=== PATIENT | male | born 2000 | race Caucasian/White ===

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

== ENCOUNTER 2019-06-24 19:22 | Emergency (ER) | payer OTHER ==
--- OUTSIDE RECORDS SUMMARY | 2019-06-24 19:26 | XMS REPORT ---
:2000 [facility] Address [address] [place] [address] Dr. Betancourt [address] [place] [id number] Care Team Providers Name Role Phone Unavailable Unavailable Unavailable Problems This patient has no known problems. Allergies, Adverse Reactions, Alerts This patient has no known allergies or adverse reactions. Medications This patient has no known medications.
[2019-06-24] MEDS ORDERED: NA CHLORIDE 0.9% 1,000 ML ONE (20:38)
[2019-06-24] MEDS ORDERED: BISACODYL 10 MG RECTAL SUPP ONE (20:38)
[2019-06-24] MEDS ORDERED: LACTULOSE 20 GM/30 ML UCUP ONE (20:39)
[2019-06-24 21:20] LABS: Protime INR 1.2
[2019-06-24 21:26] LABS: Absolute Lymphocytes (CBC) 1.9 K/uL (0.7-4.9); Basophils % 0.8 % (0-1.3); Hematocrit 40.4 % (39.6-49.0); Lymphocytes % 26.2 % (15.3-44.8); MPV 10.3 fL (7.6-11.3); RBC Red Blood Cell Count 4.34 M/uL (4.33-5.43)
[2019-06-24 22:03] LABS: ALT/SGPT 18 U/L (12-78); AST/SGOT 13 U/L (15-37); Albumin 4.3 g/dL (3.4-5.0); Alkaline Phosphatase 66 U/L (45-117); BUN Blood Urea Nitrogen 14 mg/dL (7-18); Bicarbonate 33 mmol/L (21-32); Bilirubin Direct 0.2 mg/dL (0-0.2); Bilirubin Total 0.4 mg/dL (0.2-1.0); Glucose Level 95 mg/dL (74-106); Potassium 3.7 mmol/L (3.5-5.1); Protein, Total 7.5 g/dL (6.4-8.2); Sodium Level 143 mmol/L (136-145)
--- NOTE | 2019-06-24 23:41 | ER ---
Nurse's Notes [facility] Name: Jeff Dawkins Age: 18 yrs Sex: Male : 2000 Arrival Date: 06/24/2019 Time: 19:23 Bed 24 Private MD: Diagnosis: Contusion of left hand;Constipation;Ascites;Pleural effusion in conditions classified elsewhere;Cardiomegaly;Pericardial effusion (noninflammatory) Presentation: 06/24 19:25 Presenting complaint: Mother states: Constipation, normal BM about 4 weeks ago; No lp1 relief with enemas, stool softeners, lactulose; Began on Seroquel about 2 months ago and patient has become agitated, aggressive, biting; Bruising noted to knuckle of left hand. Transition of care: patient was not received from another setting of care. Onset of symptoms was June 24, 2019. Risk Assessment: Do you want to hurt yourself or someone else? Patient reports no desire to harm self or others. Initial Sepsis Screen: Does the patient meet any 2 criteria? No. Patient's initial sepsis screen is negative. Does the patient have a suspected source of infection? No. Patient's initial sepsis screen is negative. Care prior to arrival: None. 19:25 Method Of Arrival: Wheelchair lp1 19:25 Acuity: JALEEL 3 lp1 Historical: - Allergies: 19:28 Ativan; lp1 19:28 Tegretol; lp1 19:28 Lorazepam; lp1 19:28 Carbamazepine; lp1 - Home Meds: 19:28 Trileptal 900 mg Oral 2 times per day [Active]; Singulair 10 mg Oral tab once daily lp1 [Active]; Flovent Inhl [Active]; Zyrtec 10 mg Oral tab once daily [Active]; Seroquel Oral [Active]; - PMHx: 19:28 Bonchial Pulmonary dysplasia; Cerebral Palsy; Heart Valve problem; Non-verbal; lp1 scoliosis; Seizures; - Immunization history:: Adult Immunizations up to date. - Social history:: Smoking status: Patient/guardian denies using tobacco. - Ebola Screening: : No symptoms or risks identified at this time. - Family history:: not pertinent. Screenin:45 Abuse screen: Denies threats or abuse. Denies injuries from another. Nutritional ca1 screening: No deficits noted. Tuberculosis screening: No symptoms or risk factors identified. Fall Risk Fall in past 12 months (25 points). Secondary diagnosis (15 points) CP. IV access (20 points). Ambulatory Aid- Crutches/Cane/Walker (15 pts). Gait- Impaired (20 pts.). Total Perez Fall Scale indicates High Risk Score (45 or more points). Fall prevention measures have been instituted. Side Rails Up X 2 Frequent Obs/Assessments Occuring Family Present and informed to notify staff if the need to leave the bedside As available patient and family educated on Fall Prevention Program and Strategies. Assessment: 19:45 General: Appears in no apparent distress. comfortable, Behavior is calm, cooperative. ca1 Pain: Unable to use pain scale. FLACC scale score is 0 out of 10. Neuro: Level of Consciousness is awake, alert. Cardiovascular: Heart tones S1 S2 present Capillary refill < 3 seconds Patient's skin is warm and dry. Respiratory: Airway is patent Respiratory effort is even, unlabored, Respiratory pattern is regular, symmetrical. GI: Abdomen is flat, non-distended, Bowel sounds present X 4 quads. Abd is soft and non tender X 4 quads. Parent/caregiver reports the patient having constipation. : Parent/caregiver report the patient having trouble urinating. Pt has not peed on his pull up in few hours but diaper is full when inspected. EENT: No deficits noted. No signs and/or symptoms were reported regarding the EENT system. Derm: Skin is healthy with good turgor, has skin tears on on both arms. Mother reports they were bite alvares by the pt. Skin is pink, warm \T\ dry. Musculoskeletal: Circulation, motion, and sensation intact. Capillary refill < 3 seconds. 20:32 Reassessment: Patient appears in no apparent distress at this time. No changes from ca1 previously documented assessment. 21:36 Reassessment: Patient appears in no apparent distress at this time. No changes from ca1 previously documented assessment. Mother at bedside. 21:40 Reassessment: Pending CT with Oral Contrast. ca1 22:23 Reassessment: Assumed care of pt. Pt appears to be resting comfortably, family at 5 bedside. Alert/active, equal unlabored resp,. Awaiting CT results and urine collection. 23:19 Reassessment: Pt continues to be alert, calm, mom at bedside, [place] cath applied with sr5 drainage bag, pt tolerated procedure very well. Awaiting CT results and urine collection. Vital Signs: 19:31 BP 118 / 87; Pulse 114; Resp 20; Temp 97.1(A); Pulse Ox 97% on R/A; Weight 68.04 kg (R);lp1 21:36 BP 125 / 74; Pulse 90; Resp 17 S; Pulse Ox 100% on R/A; ca1 23:19 BP 131 / 78; Pulse 91; Resp 18; Temp 97.9; Pulse Ox 98% on R/A; sr5 ED Course: 19:23 Patient arrived in ED. cl3 19:26 Triage completed. lp1 19:26 Arm band placed on. lp1 19:36 Nia Monroy, TEJINDER is Primary Nurse. ca1 19:45 Patient has correct armband on for positive identification. Placed in gown. Bed in low ca1 position. Call light in reach. Side rails up X2. Adult w/ patient. Pulse ox on. NIBP on. Warm blanket given. 19:53 Hilario Schroeder MD is Attending Physician. [facility] 20:30 Oral contrast given. eh 21:02 No provider procedures requiring assistance completed. Initial lab(s) drawn, by id, ca1 sent to lab. Inserted saline lock: 22 gauge in right antecubital area, using aseptic technique. Blood collected. 21:12 Radiology exam delayed due to lab results not completed at this time. (BUN/Creatinine) eh DRINKING ORAL CONTRAST. 21:59 Cleaned of incontinence. jp3 22:11 Hand Left 3 View In Process Unspecified. EDMS 23:01 CT Abd/Pelvis - PO and IV Contrast In Process Unspecified. EDMS 23:42 Urine collected: Mccormack catheter specimen, clear, mile colored, from condom cath. jp3 06/25 00:18 IV discontinued, intact, bleeding controlled, No redness/swelling at site. Pressure sr5 dressing applied. Administered Medications: 06/24 20:30 Drug: Dulcolax Suppository 10 mg Route: OH; ca1 23:46 Follow up: Response: No change in condition sr5 20:35 Drug: Lactulose 30 grams Volume: 45 ml; Route: PO; ca1 23:46 Follow up: Response: No adverse reaction sr5 21:08 Drug: NS 0.9% 1000 ml Route: IV; Rate: 1 bolus; Site: left antecubital; ca1 23:46 Follow up: IV Status: Completed infusion; IV Intake: 1000ml sr5 Intake: 23:46 IV: 1000ml; Total: 1000ml. sr5 Outcome: 23:38 Discharge ordered by . ramona 06/25 00:17 Patient left the ED. sr5 00:17 Discharged to home via wheelchair, with family. sr5 00:17 Condition: good 00:17 Discharge instructions given to family, Instructed on discharge instructions, follow up and referral plans. medication usage, Demonstrated understanding of instructions, follow-up care, medications, Prescriptions given X 2. Signatures: Dispatcher [employer] EDMS Hilario Schroeder MD MD cha Hagler, Rosa Isela Guillen, RN RN lp1 Leonid Rivers RN RN sr5 Sea Ceron jp3 Nia Monroy RN RN ca1 Kenny Pineda cl3
--- NOTE | 2019-06-24 23:42 | EDPHYS ---
Physician Documentation [facility] Name: Jeff Dawkins Age: 18 yrs Sex: Male : 2000 Arrival Date: 06/24/2019 Time: 19:23 Bed 24 Private MD: ED Physician Hilario Schroeder HPI: 06/24 21:53 This 18 yrs old Male presents to ER via Wheelchair with complaints of ramona Constipation, Urinary Problem. 21:53 The patient or guardian reports decreased range of motion, pain. The complaints affect ramona the left hand diffusely. The patient presents with abdominal pain in the upper abdomen, in the lower abdomen, abdominal distention in the upper abdomen, in the lower abdomen. Onset: The symptoms/episode began/occurred 1 week(s) ago. The symptoms do not radiate. Modifying factors: The symptoms are alleviated by nothing, the symptoms are aggravated by nothing. no bm. Historical: - Allergies: 19:28 Ativan; lp1 19:28 Tegretol; lp1 19:28 Lorazepam; lp1 19:28 Carbamazepine; lp1 - Home Meds: 19:28 Trileptal 900 mg Oral 2 times per day [Active]; Singulair 10 mg Oral tab once daily lp1 [Active]; Flovent Inhl [Active]; Zyrtec 10 mg Oral tab once daily [Active]; Seroquel Oral [Active]; - PMHx: 19:28 Bonchial Pulmonary dysplasia; Cerebral Palsy; Heart Valve problem; Non-verbal; lp1 scoliosis; Seizures; - Immunization history:: Adult Immunizations up to date. - Social history:: Smoking status: Patient/guardian denies using tobacco. - Ebola Screening: : No symptoms or risks identified at this time. - Family history:: not pertinent. ROS: 21:53 Constitutional: Negative for fever, chills, and weight loss, Eyes: Negative for injury, ramona pain, redness, and discharge, ENT: Negative for injury, pain, and discharge, Neck: Negative for injury, pain, and swelling, Cardiovascular: Negative for chest pain, palpitations, and edema, Respiratory: Negative for shortness of breath, cough, wheezing, and pleuritic chest pain, Back: Negative for injury and pain, : Negative for injury, bleeding, discharge, and swelling, MS/Extremity: Negative for injury and deformity, Skin: Negative for injury, rash, and discoloration, Neuro: Negative for headache, weakness, numbness, tingling, and seizure, Psych: Negative for depression, anxiety, suicide ideation, homicidal ideation, and hallucinations, Allergy/Immunology: Negative for hives, rash, and allergies, Endocrine: Negative for neck swelling, polydipsia, polyuria, polyphagia, and marked weight changes, Hematologic/Lymphatic: Negative for swollen nodes, abnormal bleeding, and unusual bruising. 21:53 Abdomen/GI: Positive for abdominal pain, constipation. Exam: 21:53 Abdomen/GI: Inspection: abdomen appears normal, Bowel sounds: normal, Palpation: mild ramona abdominal tenderness, in all quadrants. 23:34 Cardiovascular: Rate: normal, Rhythm: regular, Pulses: Pulses are 4+ in bilateral ramona radial, brachial, femoral, popliteal, posterior tibial and and dorsalis pedis arteries.. Heart sounds: murmur, grade 3 over 6, rub, not appreciated, gallop, not appreciated, Edema: is not appreciated, JVD: is not appreciated. 23:35 Constitutional: This is a well developed, well nourished patient who is awake, alert, ramona and in no acute distress. Head/Face: Normocephalic, atraumatic. Eyes: Pupils equal round and reactive to light, extra-ocular motions intact. Lids and lashes normal. Conjunctiva and sclera are non-icteric and not injected. Cornea within normal limits. Periorbital areas with no swelling, redness, or edema. ENT: Nares patent. No nasal discharge, no septal abnormalities noted. Tympanic membranes are normal and external auditory canals are clear. Oropharynx with no redness, swelling, or masses, exudates, or evidence of obstruction, uvula midline. Mucous membranes moist. Neck: Trachea midline, no thyromegaly or masses palpated, and no cervical lymphadenopathy. Supple, full range of motion without nuchal rigidity, or vertebral point tenderness. No Meningismus. Chest/axilla: Normal chest wall appearance and motion. Nontender with no deformity. No lesions are appreciated. Respiratory: Lungs have equal breath sounds bilaterally, clear to auscultation and percussion. No rales, rhonchi or wheezes noted. No increased work of breathing, no retractions or nasal flaring. Abdomen/GI: Soft, non-tender, with normal bowel sounds. No distension or tympany. No guarding or rebound. No evidence of tenderness throughout. Back: No spinal tenderness. No costovertebral tenderness. Full range of motion. Male : Normal genitalia with no discharge or lesions. Skin: Warm, dry with normal turgor. Normal color with no rashes, no lesions, and no evidence of cellulitis. Neuro: Awake and alert, GCS 15, oriented to person, place, time, and situation. Cranial nerves II-XII grossly intact. Motor strength 5/5 in all extremities. Sensory grossly intact. Cerebellar exam normal. Normal gait. Psych: Awake, alert, with orientation to person, place and time. Behavior, mood, and affect are within normal limits. 23:35 Musculoskeletal/extremity: ROM: full active range of motion, full passive range of motion, Circulation is intact in all extremities. Sensation intact. Compartment Syndrome exam of affected extremity: is normal. DVT Exam: no pain, no tenderness, negative Homans' sign noted on exam, no appreciated bluish discoloration, no erythema, no increased warmth, swelling. Vital Signs: 19:31 BP 118 / 87; Pulse 114; Resp 20; Temp 97.1(A); Pulse Ox 97% on R/A; Weight 68.04 kg (R);lp1 21:36 BP 125 / 74; Pulse 90; Resp 17 S; Pulse Ox 100% on R/A; ca1 23:19 BP 131 / 78; Pulse 91; Resp 18; Temp 97.9; Pulse Ox 98% on R/A; sr5 MDM: 19:53 Patient medically screened. [facility] 21:55 Data reviewed: vital signs, nurses notes, lab test result(s), EKG, radiologic studies, [facility] CT scan. 06/24 19:55 Order name: Acetaminophen; Complete Time: 22:32 [facility] 06/24 19:55 Order name: Basic Metabolic Panel; Complete Time: 22:32 [facility] 06/24 19:55 Order name: CBC with Diff; Complete Time: 21:52 [facility] 06/24 19:55 Order name: ETOH Level; Complete Time: 21:52 [facility] 06/24 19:55 Order name: Hepatic Function; Complete Time: 22:32 [facility] 06/24 19:55 Order name: PT-INR; Complete Time: 21:52 [facility] 06/24 19:55 Order name: Ptt, Activated; Complete Time: 21:52 [facility] 06/24 19:55 Order name: Salicylate; Complete Time: 21:52 [facility] 06/24 19:55 Order name: Urine Drug Screen [facility] 06/24 19:55 Order name: CT Abd/Pelvis - PO and IV Contrast [facility] 06/24 21:58 Order name: Hand Left 3 View EDMS 06/24 19:55 Order name: EKG; Complete Time: 19:55 [facility] 06/24 19:55 Order name: EKG - Nurse/Tech; Complete Time: 21:36 [facility] 06/24 19:55 Order name: IV Saline Lock; Complete Time: 21:07 [facility] 06/24 19:55 Order name: Labs collected and sent; Complete Time: 21:07 [facility] 06/24 19:55 Order name: Urine Dipstick-Ancillary (obtain specimen); Complete Time: 23:46 [facility] Administered Medications: 20:30 Drug: Dulcolax Suppository 10 mg Route: MA; ca1 23:46 Follow up: Response: No change in condition sr5 20:35 Drug: Lactulose 30 grams Volume: 45 ml; Route: PO; ca1 23:46 Follow up: Response: No adverse reaction sr5 21:08 Drug: NS 0.9% 1000 ml Route: IV; Rate: 1 bolus; Site: left antecubital; ca1 23:46 Follow up: IV Status: Completed infusion; IV Intake: 1000ml sr5 Disposition: 06/24/19 23:38 Discharged to Home. Impression: Contusion of left hand, Constipation, Ascites, Pleural effusion in conditions classified elsewhere, Cardiomegaly, Pericardial effusion (noninflammatory). - Condition is Stable. - Discharge Instructions: Ascites, Constipation, Adult, Hand Contusion, Pericardial Effusion, Pleural Effusion, How to Take a Sitz Bath, Constipation, Adult, [id number], Hand Contusion, [id number]. - Prescriptions for Lactulose 10 gram/15 mL Oral Solution - take 30 milliliter by ORAL route once daily; 300 milliliter. Miralax 17 gram/dose Oral - take 1 packet by ORAL route once daily dilute powder in 8 ounces of water or juice; 20 packet. - Medication Reconciliation Form, Thank You Letter, Antibiotic Education, Prescription Opioid Use form. - Follow up: Private Physician; When: 2 - 3 days; Reason: Recheck today's complaints, Continuance of care, Re-evaluation by your physician. - Problem is new. - Symptoms have improved. Signatures: Dispatcher [employer] EDHilario Ross MD MD cha Pena, Laura, RN RN lp1 Resecker, Leonid, RN RN sr5 Nia Monroy RN RN ca1 Corrections: (The following items were deleted from the chart) 23:37 21:53 Constitutional: This is a well developed, well nourished patient who is awake, ramona alert, and in no acute distress. Head/Face: Normocephalic, atraumatic. Eyes: Pupils equal round and reactive to light, extra-ocular motions intact. Lids and lashes normal. Conjunctiva and sclera are non-icteric and not injected. Cornea within normal limits. Periorbital areas with no swelling, redness, or edema. ENT: Nares patent. No nasal discharge, no septal abnormalities noted. Tympanic membranes are normal and external auditory canals are clear. Oropharynx with no redness, swelling, or masses, exudates, or evidence of obstruction, uvula midline. Mucous membranes moist. Neck: Trachea midline, no thyromegaly or masses palpated, and no cervical lymphadenopathy. Supple, full range of motion without nuchal rigidity, or vertebral point tenderness. No Meningismus. Chest/axilla: Normal chest wall appearance and motion. Nontender with no deformity. No lesions are appreciated. Cardiovascular: Regular rate and rhythm with a normal S1 and S2. No gallops, murmurs, or rubs. Normal PMI, no JVD. No pulse deficits. Respiratory: Lungs have equal breath sounds bilaterally, clear to auscultation and percussion. No rales, rhonchi or wheezes noted. No increased work of breathing, no retractions or nasal flaring. Back: No spinal tenderness. No costovertebral tenderness. Full range of motion. Male : Normal genitalia with no discharge or lesions. Skin: Warm, dry with normal turgor. Normal color with no rashes, no lesions, and no evidence of cellulitis. MS/ Extremity: Pulses equal, no cyanosis. Neurovascular intact. Full, normal range of motion. Neuro: Awake and alert, GCS 15, oriented to person, place, time, and situation. Cranial nerves II-XII grossly intact. Motor strength 5/5 in all extremities. Sensory grossly intact. Cerebellar exam normal. Normal gait. Psych: Awake, alert, with orientation to person, place and time. Behavior, mood, and affect are within normal limits. [facility] 06/25 00:17 06/24 23:38 06/24/2019 23:38 Discharged to Home. Impression: Contusion of left hand; sr5 Constipation; Ascites; Pleural effusion in conditions classified elsewhere; Cardiomegaly; Pericardial effusion (noninflammatory). Condition is Stable. Discharge Instructions: Constipation, Adult, How to Take a Sitz Bath, Constipation, Adult, [id number], Hand Contusion, Hand Contusion, [id number]. Prescriptions for Lactulose 10 gram/15 mL Oral Solution - take 30 milliliter by ORAL route once daily; 300 milliliter, Miralax 17 gram/dose Oral - take 1 packet by ORAL route once daily dilute powder in 8 ounces of water or juice; 20 packet. and Forms are Medication Reconciliation Form, Thank You Letter, Antibiotic Education, Prescription Opioid Use. Follow up: Private Physician; When: 2 - 3 days; Reason: Recheck today's complaints, Continuance of care, Re-evaluation by your physician. Problem is new. Symptoms have improved. [facility]
[2019-06-24 23:57] LABS: Barbiturates NEGATIVE (NEGATIVE); Benzodiazepines NEGATIVE (NEGATIVE); Cocaine NEGATIVE (NEGATIVE); METHAMPHETAM NEGATIVE (NEGATIVE); Methadone NEGATIVE (NEGATIVE); Opiates NEGATIVE (NEGATIVE); Phencyclidine NEGATIVE (NEGATIVE); THC Cannibis NEGATIVE (NEGATIVE)
[2019-06-25 00:25] VITALS: BP 131/78; TEMP 97.9; O2SAT 98
--- NOTE | 2019-06-25 08:06 | RAD REPORT ---
EXAM DESCRIPTION: RAD - Hand Left 3 View - 06/24/2019 10:12 pm CLINICAL HISTORY: Trauma, left hand pain COMPARISON: March 2016 FINDINGS: No fracture, dislocation or periosteal reaction noted. No acute joint finding. No foreign body or significant soft tissue abnormality. IMPRESSION: Negative left hand examination.
--- NOTE | 2019-06-25 10:23 | RAD REPORT ---
EXAM DESCRIPTION: CT - Abdomen Pelvis W Contrast - 06/25/2019 3:42 am CLINICAL HISTORY: ABD PAIN COMPARISON: None. TECHNIQUE: CT ABDOMEN PELVIS WITH IV CONTRAST on 06/24/2019 7:55 PM FUR JOINER This exam was performed according to our departmental dose-optimization program, which includes autom ated exposure control, adjustment of the mA and/or kV according to patient size and/or use of iterati ve reconstruction technique. FINDINGS: There are small bilateral pleural effusions. The heart is moderately enlarged with a small pericardial effusion. Abdomen: The liver is normal in appearance. There is no biliary dilatation. Gallbladder is poorly dis tended. There is diffuse mild to moderate ascites. The pancreas and spleen are normal in appearance. Adrenal glands are normal. Left kidney contains a tiny peripheral cyst as well as at least three punc clarke calculi. There is no definite hydronephrosis. Because normal. Abdominal aorta is normal in course and caliber without aneurysm. There is no free air. There is no r etroperitoneal adenopathy. Pelvis: There is large amount of stool throughout the colon. Urinary bladder is unremarkable. There i s moderate free pelvic fluid. Skeleton: There are no acute osseous findings. No suspicious bony lesions. IMPRESSION: Ascites and pleural effusions along with a pericardial effusion. Electronically signed by: Chris Sapp MD 06/24/2019 11:15 PM FUR JOINER Due to temporary technical issues with the PACS/Fluency reporting system, reports are being signed by the in house radiologist as a courtesy to ensure prompt reporting. The interpreting radiologist is f ully responsible for the content of the report.
--- NOTE | 2019-06-25 13:48 | EKG ---
Test Date: 2019-06-24 Test Time: 21:30:49 Social Sciences Chair: OLIVE MEASUREMENT RESULTS: Intervals: Rate: 96 GA: 188 QRSD: 110 QT: 358 QTc: 452 Dexter: P: 51 GA: 188 QRS: 65 T: 14 INTERPRETIVE STATEMENTS: Normal sinus rhythm with sinus arrhythmia Early repolarization Normal ECG Compared to ECG 01/14/2013 10:17:56 Aberrant conduction of supraventricular beat(s) no longer present ST (T wave) deviation no longer present Electronically Signed On 06-25-19 13:46:26 [employer]URING by Sinan Stockton
== END 2019-06-25 00:17 | disposition home or self-care (01) ==
LOC: ER 19:22
DX: K59.00 Constipation, unspecified (principal); R18.8 Other ascites; I31.3 Pericardial effusion (noninflammatory); I51.7 Cardiomegaly; J91.8 Pleural effusion in other conditions classified elsewhere; G40.909 Epilepsy, unspecified, not intractable, without status epilepticus; Z88.8 Allergy status to other drugs, medicaments and biological substances
CPT/HCPCS: 96361; 93005; 85025; 80048; 36415; 80320; 80329 ×2; 85610; 80076; 80307 ×8; 85730; 74177; 73130; 96360; 99284; Q9967; J7030

== ENCOUNTER 2021-11-06 23:32 | Emergency (ER) | payer OTHER ==
--- OUTSIDE RECORDS SUMMARY | 2021-11-06 23:36 | XMS REPORT | Continuity of Care Document ---
:2000 Author Organization [facility] t Address [address] [place] [address] Dr. [address] [place] [address] Care Team Providers Name Role Phone Sabiha GRAY Primary Care Physician Unavailable Sabiha Gray Attending Clinician Unavailable MOHIT CONTI Attending Clinician Unavailable MOHIT CONTI Attending Clinician Unavailable KRAIG BENNETT Attending Clinician Unavailable Mohit Conti MD Attending Clinician KRAIG BENNETT Admitting Clinician Unavailable Payers Payer Name Policy Type Policy Number Effective Date Expiration Date S maryrupert [facility] [id number] 2020 00:00:00 PLUS [facility] [id number] 2021 00:00:00 PLAN Problems Condition Condition Condition Status Onset Resolution Last Treating Co mments Source Name Details Category Date Date Treatment Clinician Date No known No known Disease NPI:1 83 active active [id number] problems problems Allergies, Adverse Reactions, Alerts Allergy Allergy Status Severity Reaction(s) Onset Inactive Treating Comm ents Source Name Type Date Date Clinician LORAZEPA Allergy Active NPI:118 M 2-21 [id number] 00:00: 00 CARBAMAZ Allergy Active NPI:118 EPINE 2-21 [id number] 00:00: 00 Carbamaz Propensi Active Unknown Tegretol N PI:183 epine ty to See comments 03-29 Decrease 13 89743 adverse 00:00: RBC reaction 00 s Lorazepa Propensi Active Unknown hallucina NPI:183 m ty to See comments 03-29 tion 1318 781 adverse 00:00: reaction 00 s CARBAMAZ DRUG Active Unknown-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 I:183 EPINE INGREDI 03-29 [id number] 00:00: 00 LORAZEPA DRUG Active Unknown-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 I:183 M INGREDI 03-29 5600361 00:00: 00 Tegretol Adverse Active Changes NPI:17 4 Reaction blood values 04 56654 Ativan Adverse Active Hallucinatio NPI :174 Reaction ns [id number] NO KNOWN Allergy Active SLEH ALLERGIE S Social History Social Habit Start Date Stop Date Quantity Comments Source Tobacco use and 2020-11-28 2020-11-28 Never used NPI:02222 23552 exposure 00:00:00 00:00:00 Sex [birth year] At [birth year] NPI:[id number] 00:00:00 00:00:00 Smoking Status Start Date Stop Date Source Never smoker Medications Ordered Filled Start Stop Current Ordering Indication Dosage Frequency Signature Comments Components Source Medication Medication Date Date Medication? Clinician (SIG) Name Name docusate Yes 50mg Take 50 mg NPI :183 sodium 50 6-01 by mouth. 42372 81 mg capsule 18:27: 32 ascorbic Yes 500mg Take 500 NPI: 183 acid, 6-01 mg by [id number] vitamin C, 18:27: mouth. 500 mg 32 tablet Multivitami Yes Take by 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 I:183 ns with 6-01 mouth. [id number] Fluoride 18:27: (MULTI-LUIS DANIEL 32 MIN ORAL) Lactobac Yes Take by NPI:1 83 no.41/Bifid 6-01 mouth. 060476 1 obact no.7 18:27: (PROBIOTIC- 32 10 ORAL) Magnesium Yes Take by NPI: 183 Amino Acid 6-01 mouth. 1531308 Chelate 100 18:27: mg Tab 32 docusate Yes 50mg Take 50 mg NPI :183 sodium 50 6-01 by mouth. 58892 81 mg capsule 18:27: 32 ascorbic Yes 500mg Take 500 NPI: 183 acid, 6-01 mg by [id number] vitamin C, 18:27: mouth. 500 mg 32 tablet Multivitami Yes Take by 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 I:183 ns with 6- mouth. [id number] Fluoride 18:27: (MULTI-LUIS DANIEL 32 MIN ORAL) Lactobac Yes Take by NPI:1 83 no.41/Bifid 6- mouth. 505621 1 obact no.7 18:27: (PROBIOTIC- 32 10 ORAL) Magnesium Yes Take by NPI: 183 Amino Acid 6- mouth. [id number] Chelate 100 18:27: mg Tab 32 FLUoxetine Yes NPI:183 40 mg 5-06 [id number] capsule 00:00: 00 FLUoxetine Yes NPI:183 40 mg 5-06 [id number] capsule 00:00: 00 risperiDONE Yes NPI:18 3 0.5 mg 4-29 [id number] tablet 00:00: 00 risperiDONE Yes NPI:18 3 0.5 mg 4-29 [id number] tablet 00:00: 00 calcium Yes 500mg Take 500 NPI:1 83 gluconate 1-08 mg by 9590515 45 mg (500 19:51: mouth. mg) Tab 02 tablet Melatonin 5 Yes 5mg Take 5 mg N PI:183 mg tablet 1-08 by mouth. 57751 81 19:51: 02 calcium Yes 500mg Take 500 NPI:1 83 gluconate 1-08 mg by 4447590 45 mg (500 19:51: mouth. mg) Tab 02 tablet Melatonin 5 Yes 5mg Take 5 mg N PI:183 mg tablet 1-08 by mouth. 25176 81 19:51: 02 fluticasone Yes 50ug Use 50 mcg NPI:183 50 9-13 in each 1531513 mcg/actuati 00:00: nostril. on nasal 00 spray fluticasone Yes 50ug Use 50 mcg NPI:183 50 9-13 in each 7977108 mcg/actuati 00:00: nostril. on nasal 00 spray montelukast Yes TAKE 1 NPI: 183 10 mg 9-06 TABLET BY [id number] tablet 00:00: MOUTH 00 EVERY EVENING montelukast 2017- Yes TAKE 1 NPI: 183 10 mg 9-06 TABLET BY [id number] tablet 00:00: MOUTH 00 EVERY EVENING fluticasone 2018-0 Yes INHALE 2 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 I:183 (FLOVENT 8-06 PUFFS BY [id number] HFA) 44 00:00: MOUTH mcg/actuati 00 TWICE on inhaler DAILY. USE WITH SPACER, WASH MOUTH AFTER USE fluticasone 2018-0 Yes INHALE 2 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 I:183 (FLOVENT 8-06 PUFFS BY [id number] HFA) 44 00:00: MOUTH mcg/actuati 00 TWICE on inhaler DAILY. USE WITH SPACER, WASH MOUTH AFTER USE OXcarbazepi 2018-0 Yes 900mg Take 900 N PI:183 ne 600 mg 5-16 mg by [id number] tablet 00:00: mouth. 00 OXcarbazepi 2018-0 Yes 900mg Take 900 N PI:183 ne 600 mg 5-16 mg by [id number] tablet 00:00: mouth. 00 cetirizine 2017-0 Yes TAKE 1 NPI:1 83 10 mg 5-03 TABLET BY [id number] tablet 00:00: MOUTH 00 EVERY DAY levalbutero 2017-0 Yes USE 1 NPI:1 83 l 0.63 mg/3 5-03 VIAL(3 ML) 13 89594 mL 00:00: VIA nebulizer 00 NEBULIZER solution EVERY 4 HOURS NEEDED FOR WHEEZING cetirizine 2017-0 Yes TAKE 1 NPI:1 83 10 mg 5-03 TABLET BY [id number] tablet 00:00: MOUTH 00 EVERY DAY levalbutero 2018-0 Yes USE 1 NPI:1 83 l 0.63 mg/3 5-03 VIAL(3 ML) 13 42221 mL 00:00: VIA nebulizer 00 NEBULIZER solution EVERY 4 HOURS NEEDED FOR WHEEZING Diazepam Yes Please set NPI :183 12.502-28 [place] [address] 81 5-20 mg 00:00: 17.5mg. rectal gel 00 Administer ME as needed for seizures lasting more than 3 minutes Diazepam Yes Please set NPI :183 12.515-17. 9- [place] [address] 81 5-20 mg 00:00: 17.5mg. rectal gel 00 Administer ME as needed for seizures lasting more than 3 minutes simethicone Yes 80mg Take 80 mg NPI:183 80 mg 5-25 by mouth. [id number] chewable 00:00: tablet 00 simethicone 2012-0 Yes 80mg Take 80 mg NPI:183 80 mg 5-25 by mouth. [id number] chewable 00:00: tablet 00 Montelukast Montelukast Yes Chemo 1 tablet NPI:174 Sodium Sodium Gray 0885325 Flovent HFA Flovent HFA Yes Chemo 2 puffs NPI:174 Gray 8304678 Risperidone Risperidone Yes Chemo 0.5 tablet NPI:174 Gray 2776604 Calcium Calcium Yes Chemo 2 tablets 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 I:174 Citrate + Citrate + Gray 0485 879 D3 D3 Fluoxetine Fluoxetine Yes Chemo 1 capsule NPI:174 HCl HCl Gray 6983885 Probiotic Probiotic Yes Chemo 1 capsule NPI:174 Gray 4287827 Emergen-C Emergen-C Yes Chemo as NPI :174 Immune Immune Gray directed 155609 9 Cetirizine Cetirizine Yes Chemo 1 tablet NPI:174 HCl HCl Gray 2088054 Magnesium Magnesium Yes Chemo 1 tablet NPI:174 Gray with a 5530391 meal MiraLax MiraLax Yes Chemo 17 gm NPI:17 4 Gray 3691059 Acetaminoph Acetaminoph Yes Chemo 1 tablet NPI:174 en en Gray as needed [id number] Gas-X Gas-X Yes Chemo 2 tablet NPI:174 Gray 2023458 Fiber Fiber Yes Chemo 2 tsp NPI:174 Gray 4323418 Diastat Diastat Yes Chemo 17.5mg NPI:1 74 AcuDial AcuDial Gray 1177441 Oxcarbazepi Oxcarbazepi Yes Chemo 1.5 tablet NPI:174 ne ne Gray 0186247 Fluticasone Fluticasone Yes Chemo 1 spray in NPI:174 Propionate Propionate Gray each 04 23708 nostril Fluoxetine Fluoxetine Yes Chemo 1 capsule NPI:174 HCl HCl Gray 9936721 Trazodone Trazodone Yes Chemo 0.5 to 1 NPI:174 HCl HCl Gray tablet at 2936113 bedtime Sennosides- Sennosides- Yes Chemo 1 tablet NPI:174 Docusate Docusate Gray 543662 9 Sodium Sodium Levalbutero Levalbutero Yes Chemo 3 ml NPI:174 l HCl l HCl Gray 4068526 Vital Signs Vital Name Observation Time Observation Value Comments Source HEIGHT 2021-08-22 12:38:00 170.2 cm WEIGHT 2021-08-22 12:38:00 83.4 kg HEIGHT 2021-08-20 15:00:00 170.2 cm WEIGHT 2021-08-20 15:00:00 87.544 kg HEIGHT 2021-08-22 12:38:00 170.2 cm WEIGHT 2021-08-22 12:38:00 83.4 kg HEIGHT 2021-08-20 15:00:00 170.2 cm WEIGHT 2021-08-20 15:00:00 87.544 kg Systolic blood pressure 2020-11-28 18:10:00 106 mm[Hg] Diastolic blood 2020-11-28 18:10:00 68 mm[Hg] NPI:1 [id number] pressure Heart rate 2020-11-28 18:10:00 101 /min NPI:1831 [id number] Body weight 2020-11-28 18:10:00 83.915 kg NPI:1831 [id number] Oxygen saturation in 2020-11-28 18:10:00 94 /min Arterial blood by Pulse oximetry Procedures This patient has no known procedures. Encounters Start End Encounter Admission Attending Care Care Encounter Source Date/Time Date/Time Type Type Clinicians Facility Department ID 2021-08-16 Outpatient Gray, [facility]C [facility] [id number] NPI:174 13:56:01 Chemo [id number] 2021-07-25 Outpatient Gray, [facility] [id number] NPI:174 14:09:04 Chemo [id number] 2021-07-25 Outpatient Gray, [facility]C [facility] [id number] NPI:174 13:33:54 Chemo [id number] 2021-07-25 Outpatient Gray, [facility] [id number] NPI:174 13:05:58 Chemo [id number] 2021-07-25 Outpatient Gray, [facility] [id number] NPI:174 11:51:52 Chemo [id number] 2021-07-25 Outpatient Gray, [facility]LMLC [facility] [id number] NPI:174 11:51:13 Chemo [id number] 2021-07-25 Outpatient Gray, [facility]LMLC [facility] [id number] NPI:174 11:50:41 Chemo [id number] 2021-07-25 Outpatient Gray, [facility]LMLC [facility] [id number] NPI:174 11:43:21 Chemo [id number] 2021-07-25 Outpatient Gray, [facility]MLC [facility] [id number] NPI:174 11:19:05 Chemo [id number] 2021-11-13 2021-11-13 Outpatient Garett SUSHILAJONATHAN Suarez [facility] [id number] NPI:183 11:20:00 11:20:00 JONATHAN CONTI [id number] 2021-11-13 Outpatient Garett SUSHILA JONATHAN [facility] [id number] NPI:183 11:20:00 11:20:00 SUSHILAJONATHAN [id number] 2021-11-06 Outpatient JONATHAN RONDON [facility] [id number] NPI:183 11:20:00 11:20:00 SUSHILAJONATHAN [id number] 2021-11-06 Outpatient JONATHAN RONDON [facility] [id number] NPI:183 11:20:00 11:20:00 JONATHAN CONTI [id number] 2021-08-22 Outpatient [facility] [id number] [address] [place] [address] 11:19:00 23:59:00 Raymond Medicin e 2021-08-22 2021-08-22 Outpatient SUNIL BENNETT, [facility] Surgery [id number] SLE 11:19:00 20:45:00 STEFANY 2021-08-20 2021-08-20 Outpatient [facility] [id number] SLE 16:58:39 23:59:00 2021-08-17 2021-08-17 ambulatory STLMLC [facility] [id number] NPI:174 00:00:00 00:00:00 [id number] 2021-08-08 2021-08-08 ambulatory [facility]LMLC [facility] [id number] NPI:174 00:00:00 00:00:00 [id number] 2021-05-03 2021-05-03 ambulatory [facility]LMLC [facility] [id number] NPI:174 00:00:00 00:00:00 [id number] 2021-01-30 2021-01-30 Outpatient [facility]LMLC [facility] [id number] NPI:174 00:00:00 00:00:00 [id number] 2020-11-28 2020-11-28 Office Sushila [facility] [id number] NPI:183 12:52:52 14:04:41 Visit Jonathan Amin [id number] [place] [id number] [facility] 092 [facility] 2020-11-28 2020-11-28 Outpatient JONATHAN RONDON [facility] [id number] NPI:183 13:00:00 13:00:00 SUSHILAJONATHAN [id number] 2020-11-28 Outpatient JONATHAN RONDON [facility] [id number] NPI:183 13:00:00 13:00:00 SUSHILAJONATHAN [id number] 2020-10-24 Outpatient [facility]LMLC [facility] [id number] NPI:174 00:00:00 00:00:00 [id number] 2020-08-08 2020-08-08 Outpatient [facility]LMLC [facility] [id number] NPI:174 00:00:00 00:00:00 [id number] 2020-04-04 2020-04-04 Outpatient [facility]LMLC [facility] [id number] NPI:174 00:00:00 00:00:00 [id number] 2020-03-02 2020-03-02 Outpatient [facility] [id number] NPI:174 14:50:00 14:50:[address] [place] [address] 2019-12-15 2019-12-15 Outpatient [facility] [id number] NPI:174 15:29:00 15:29:[id number] [facility] 2019-11-30 2019-11-30 Outpatient [facility] [id number] NPI:174 14:00:00 14:00:00 t Daqi [id number] [employer] [facility] 2019-10-19 2019-10-19 Outpatient [facility] [id number] NPI:174 13:30:00 13:30:[address] [place] [address] Results Test Description Test Time Test Comments Results Result Comments Source POCT-GLUCOSE METER 2021-08-22 12:44:17 Test Item Value Reference Range Interpretation Comme nts POC-GLUCOSE METER (BEAKER) 77 mg/dL 70-110 : TESTED AT [address] (test code = 1538) GÉNESIS Farias [address]: Livestock Trucker/Techni mitchell ID = [id number] for RICHI GARCIA
[2021-11-07 01:14] LABS: Urine Blood Negative (Negative); Urine Glucose Negative (Negative); Urine Protein Negative (Negative); Urine pH 7.5 (5.0-7.0)
[2021-11-07 02:07] LABS: Urine Amorphous Sediment 2+ /HPF (NONE SEEN); Urine Bacteria <20 /HPF (NONE SEEN); Urine RBC <5 /HPF (NONE SEEN)
[2021-11-07 02:48] LABS: Absolute Lymphocytes (CBC) 1.1 K/uL (0.7-4.9); Hematocrit 38.9 % (39.6-49.0); Lymphocytes % 24.4 % (15.3-44.8); MPV 9.9 fL (7.6-11.3); RBC Red Blood Cell Count 4.17 M/uL (4.33-5.43)
[2021-11-07 02:57] LABS: Albumin 3.9 g/dL (3.4-5.0); Bilirubin Total 0.2 mg/dL (0.2-1.0); Potassium 3.7 mmol/L (3.5-5.1); Protein, Total 6.6 g/dL (6.4-8.2)
--- NOTE | 2021-11-07 04:41 | ER ---
Nurse's Notes [facility] Name: Jeff Dawkins Age: 21 yrs Sex: Male : 2000 Arrival Date: 11/06/2021 Time: 23:37 Bed 15 Private MD: Diagnosis: Gross hematuria Presentation: 11/07 00:25 Chief complaint: Parent and/or Guardian states: Mother reports patient had blood in lp1 diaper, unknown if from urine. Coronavirus screen: At this time, the client does not indicate any symptoms associated with coronavirus-19. Ebola Screen: No symptoms or risks identified at this time. Initial Sepsis Screen: Does the patient meet any 2 criteria? No. Patient's initial sepsis screen is negative. Does the patient have a suspected source of infection? No. Patient's initial sepsis screen is negative. Risk Assessment: Do you want to hurt yourself or someone else? Patient reports no desire to harm self or others. Onset of symptoms was November 07, 2021. 00:25 Method Of Arrival: Ambulatory lp1 00:25 Acuity: JALEEL 3 lp1 Triage Assessment: 01:17 General: Appears in no apparent distress. ronny 01:17 General: Behavior is cooperative. ronny 01:17 Pain: Denies pain. ronny Historical: - Allergies: 00:28 Ativan; lp1 00:28 Carbamazepine; lp1 00:28 Lorazepam; lp1 00:28 Tegretol; lp1 - Home Meds: 01:17 Flovent Inhl [Active]; Seroquel Oral [Active]; Singulair 10 mg Oral tab once daily ronny [Active]; Trileptal 900 mg Oral 2 times per day [Active]; Zyrtec 10 mg Oral tab once daily [Active]; - PMHx: 00:28 Bonchial Pulmonary dysplasia; Cerebral Palsy; Heart Valve problem; Non-verbal; lp1 scoliosis; Seizures; - PSHx: 00:28 Eye surgery; Tonsillectomy; G-tube; Dental surgeries; Hernia repair; Knee surgery; lp1 - Immunization history:: Adult Immunizations up to date. - Social history:: Smoking status: Patient denies any tobacco usage or history of. - Family history:: not pertinent. - Hospitalizations: : No recent hospitalization is reported. Screenin:16 Abuse screen: Denies threats or abuse. Denies injuries from another. Nutritional ronny screening: No deficits noted. Tuberculosis screening: No symptoms or risk factors identified. Fall Risk None identified. Assessment: 01:12 Reassessment: Patient appears in no apparent distress at this time. The pt was recv'd ronny to the room \\T\\ 2345, accompanied by his mother. All orders completed and the pt tolerated the cath well. Per the pt's mother, he has the mentation of an 18 mo old. The pt is well groomed. He has no apparent lack of nutrition. His mother, who is his emergency crew supervisor, is very doting and encouraging. There is no breakdown noted, nor is there blood noted, to his penis. The pt wears a brief. 01:44 Reassessment: A SL and labs were ordered and the pt's mother told me, when I was ronny looking for a site, that he "is a really hard stick". Given the pt's mentation and lack of SL sites, I asked my charge nurse if she would use the US. She agreed and the pt's mother was informed. 01:57 Reassessment: The charge nurse is attempting the SL. ronny 02:16 Reassessment: CT was called to tell them the pt has a SL. He is awaiting a CT. ronny 03:07 Reassessment: environmental services floor tech is here to tack picker the pt and she will take his mother with him. ronny Vital Signs: 00:25 BP 128 / 64; Pulse 80; Resp 18; Temp 98.1(TE); Pulse Ox 92% on R/A; Weight 83.91 kg (R);lp1 01:15 BP 120 / 53; Pulse 59; Resp 18; Temp 97.5; Pulse Ox 96% on R/A; Pain 0/10; ronny 04:34 BP 131 / 55; Pulse 74; Resp 16; Pulse Ox 97% on R/A; Pain 0/10; ronny ED Course: 11/06 23:37 Patient arrived in ED. bp1 23:47 Rogelio Sawyer MD is Attending Physician. rn 11/07 00:25 Arm band placed on. lp1 00:28 Triage completed. lp1 00:43 Matilde Aguirre RN is Primary Nurse. ronny 01:12 Urine Culture Sent. ronny 01:12 Urine Microscopic Only Sent. ronny 01:17 No provider procedures requiring assistance completed. ronny 01:18 Bed in low position. Adult w/ patient. ronny 01:37 Urine Culture Sent. ronny 01:37 Urine Microscopic Only Sent. ronny 02:01 Initial lab(s) drawn, by me, sent to lab. Inserted saline lock: 20 gauge in right bb antecubital area, using aseptic technique. Blood collected. 03:55 Abdomen In Process Unspecified. EDMS 04:58 intact, bleeding controlled, No redness/swelling at site. Pressure dressing applied. ronny Administered Medications: No medications were administered Outcome: 01:17 Condition: stable ronny 04:41 Discharge ordered by . rn 04:58 Discharged to home ambulatory, with family. ronny 04:58 Discharge instructions given to family, Instructed on discharge instructions, follow up and referral plans. Demonstrated understanding of instructions, follow-up care. 04:58 Patient left the ED. ronny Signatures: Dispatcher [employer] EDMS Matilde Rao, RN RN Rogelio Marinelli MD MD rn Pena, Laura, RN RN lp1 Celi Thorne Brenda, RN RN ronny
--- NOTE | 2021-11-07 04:41 | EDPHYS ---
Physician Documentation [facility] Name: Jeff Dawkins Age: 21 yrs Sex: Male : 2000 Arrival Date: 11/06/2021 Time: 23:37 Bed 15 Private MD: ED Physician Rogelio Sawyer HPI: 11/07 02:49 This 21 yrs old Male presents to ER via Ambulatory with complaints of Bleeding from rn Penis. 02:49 The patient presents with urinary symptoms, hematuria. Onset: The symptoms/episode rn began/occurred today. Modifying factors: The symptoms are alleviated by nothing, the symptoms are aggravated by nothing. Associated signs and symptoms: Pertinent positives: hematuria, Pertinent negatives: fever, vomiting. Severity of symptoms: At their worst the symptoms were mild, in the emergency department the symptoms are unchanged. The patient has not experienced similar symptoms in the past. The patient has not recently seen a physician. Family member reports noticed blood in his depends today, no stool so thinks came from penis. No trauma. no fever. No vomiting. Pt non-verbal. Does not cath. . Historical: - Allergies: 00:28 Ativan; lp1 00:28 Carbamazepine; lp1 00:28 Lorazepam; lp1 00:28 Tegretol; lp1 - Home Meds: 01:17 Flovent Inhl [Active]; Seroquel Oral [Active]; Singulair 10 mg Oral tab once daily ronny [Active]; Trileptal 900 mg Oral 2 times per day [Active]; Zyrtec 10 mg Oral tab once daily [Active]; - PMHx: 00:28 Bonchial Pulmonary dysplasia; Cerebral Palsy; Heart Valve problem; Non-verbal; lp1 scoliosis; Seizures; - PSHx: 00:28 Eye surgery; Tonsillectomy; G-tube; Dental surgeries; Hernia repair; Knee surgery; lp1 - Immunization history:: Adult Immunizations up to date. - Social history:: Smoking status: Patient denies any tobacco usage or history of. - Family history:: not pertinent. - Hospitalizations: : No recent hospitalization is reported. ROS: 02:49 Unable to obtain ROS due to patient's inability to understand questions. rn Exam: 02:49 Constitutional: This is a well developed, well nourished patient who is awake, alert, rn and in no acute distress. Head/Face: Normocephalic, atraumatic. Cardiovascular: Regular rate and rhythm. No pulse deficits. Respiratory: No increased work of breathing, no retractions or nasal flaring. Abdomen/GI: Soft, non-tender, nondistended Male : Dry blood at urethral meatus, no open wounds, no evidence of trauma to penis. Skin: Warm, dry MS/ Extremity: Pulses equal, no cyanosis. Neuro: Awake and alert Vital Signs: 00:25 BP 128 / 64; Pulse 80; Resp 18; Temp 98.1(TE); Pulse Ox 92% on R/A; Weight 83.91 kg (R);lp1 01:15 BP 120 / 53; Pulse 59; Resp 18; Temp 97.5; Pulse Ox 96% on R/A; Pain 0/10; ronny 04:34 BP 131 / 55; Pulse 74; Resp 16; Pulse Ox 97% on R/A; Pain 0/10; ronny MDM: 11/06 23:47 Patient medically screened. rn 11/07 04:39 Differential diagnosis: UTI, urethritis, kidney stone, passed kidney stone, UTI. Data rn reviewed: vital signs, nurses notes, lab test result(s), radiologic studies, CT scan, and as a result, I will discharge patient. Counseling: I had a detailed discussion with the patient and/or guardian regarding: the historical points, exam findings, and any diagnostic results supporting the discharge/admit diagnosis, lab results, radiology results, the need for outpatient follow up, to return to the emergency department if symptoms worsen or persist or if there are any questions or concerns that arise at home. Response to treatment: the patient's symptoms have markedly improved after treatment, and as a result, I will discharge patient. Special discussion: I discussed with the patient/guardian in detail that at this point there is no indication for admission to the hospital. It is understood, however, that if the symptoms persist or worsen the patient needs to return immediately for re-evaluation. ED course: Pt improved, cath urine neg for hematuria. Examined anus for hemorrhoids and negative. CT shows nephrolithiasis, could explain hematuria with recently passed stone. Mother reports noticed recently patient holding LLQ. Will dc home as hematuria has now resolved. . 11/07 00:12 Order name: Urine Microscopic Only; Complete Time: 02:49 rn 11/07 00:12 Order name: Urine Culture rn 11/07 01:15 Order name: Urine Dipstick-Ancillary; Complete Time: 01:30 EDMS 11/07 01:31 Order name: CBC with Diff; Complete Time: 03:06 rn 11/07 01:31 Order name: CMP; Complete Time: 03:06 rn 11/07 01:31 Order name: Lipase; Complete Time: 03:06 rn 11/07 00:12 Order name: Urine Dipstick-Ancillary (obtain specimen); Complete Time: 01:12 rn 11/07 00:12 Order name: Cath; Complete Time: 01:12 rn 11/07 01:31 Order name: IV Saline Lock; Complete Time: 04:10 rn 11/07 01:31 Order name: Labs collected and sent; Complete Time: 04:10 rn 11/07 03:55 Order name: Abdomen EDMS Administered Medications: No medications were administered Disposition Summary: 11/07/21 04:41 Discharge Ordered Location: Home rn Problem: new rn Symptoms: have improved rn Condition: Stable rn Diagnosis - Gross hematuria rn Followup: rn - With: Private Physician - When: As needed - Reason: Recheck today's complaints, Re-evaluation by your physician Discharge Instructions: - Discharge Summary Sheet rn - Hematuria, Adult rn - Kidney Stones rn Forms: - Medication Reconciliation Form rn - Thank You Letter rn - Antibiotic rn bone marrow transplant - Prescription Opioid Use rn Signatures: Dispatcher [employer] EDME Rogelio Sawyer MD MD rn Pena, Laura, RN RN lp1 Matilde Aguirre RN RN ornny Corrections: (The following items were deleted from the chart) 03:55 01:31 Abdomen Pelvis W Con+CT.RAD.BRZ ordered. EDME EDMS
[2021-11-07 05:44] VITALS: TEMP 97.5
[2021-11-07 05:45] VITALS: BP 131/55; O2SAT 97
--- NOTE | 2021-11-07 10:41 | RAD REPORT ---
EXAM DESCRIPTION: CT ABDOMEN PELVIS WITH IV CONTRAST on 06/24/2019 7:55 PM COSMETIC COUNSELOR CLINICAL HISTORY: ABD PAIN COMPARISON: None. TECHNIQUE: CT ABDOMEN PELVIS WITH IV CONTRAST on 06/24/2019 7:55 PM COSMETIC COUNSELOR This exam was performed according to our departmental dose-optimization program, which includes autom ated exposure control, adjustment of the mA and/or kV according to patient size and/or use of iterati ve reconstruction technique. FINDINGS: There are small bilateral pleural effusions. The heart is moderately enlarged with a small pericardial effusion. Abdomen: The liver is normal in appearance. There is no biliary dilatation. Gallbladder is poorly dis tended. There is diffuse mild to moderate ascites. The pancreas and spleen are normal in appearance. Adrenal glands are normal. Left kidney contains a tiny peripheral cyst as well as at least three punc clarke calculi. There is no definite hydronephrosis. Because normal. Abdominal aorta is normal in course and caliber without aneurysm. There is no free air. There is no r etroperitoneal adenopathy. Pelvis: There is large amount of stool throughout the colon. Urinary bladder is unremarkable. There i s moderate free pelvic fluid. Skeleton: There are no acute osseous findings. No suspicious bony lesions. IMPRESSION: Ascites and pleural effusions along with a pericardial effusion. Electronically signed by: Chris Sapp MD 06/24/2019 11:15 PM COSMETIC COUNSELOR Due to temporary technical issues with the PACS/Fluency reporting system, reports are being signed by the in house radiologist without review as a courtesy to ensure prompt reporting. The interpreting r adiologist is fully responsible for the content of the report.
== END 2021-11-07 04:58 | disposition home or self-care (01) ==
LOC: ER 23:32
DX: R31.0 Gross hematuria (principal); G80.9 Cerebral palsy, unspecified; Z88.8 Allergy status to other drugs, medicaments and biological substances
CPT/HCPCS: 36415; 74176; 80053; 81003; 81015; 83690; 85025; 87086; 87088; 99283

== ENCOUNTER 2022-03-19 12:38 | Emergency (ER) | payer OTHER ==
--- OUTSIDE RECORDS SUMMARY | 2022-03-19 12:41 | XMS REPORT | Continuity of Care Document ---
:2000 Author Organization [facility] t Address [address] [place] [address] Care Team Providers Name Role Phone Chemo Gray Primary Care Physician Chemo Gray Attending Clinician Unavailable Jonathan Conti MD Attending Clinician Stefany Bennett DDS Attending Clinician [phone] STEFANY BENNETT Attending Clinician Unavailable Leroy Oniell MD Attending Clinician Syed Crocker Attending Clinician Unavailable STEFANY BENNETT Admitting Clinician Unavailable Payers Payer Name Policy Type Policy Number Effective Date Expiration Date S ource Problems Condition Condition Condition Status Onset Resolution Last Treating Co mments Source Name Details Category Date Date Treatment Clinician Date No known No known Disease Unive rs active active ity of problems problems [facility] Allergies, Adverse Reactions, Alerts Allergy Allergy Status Severity Reaction(s) Onset Inactive Treating Comm ents Source Name Type Date Date Clinician Lorazepa Propensi [facility] adverse 00:00: Medical reaction 00 Center s Carbamaz Propensi Active 2022-[address] epine ty to 2- [facility] adverse 00:00: Medical reaction 00 Center s LORAZEPA Allergy Active [facility] 2-21 [facility] 00:[facility]: Medical 00 Center CARBAMAZ Allergy Active [facility] EPINE -21 [facility] 00:00: Medical 00 [place] Quetiapi Propensi Active Unknown - Severe Uni vers ne ty to See comments 07-06 aggressio i ty of adverse 00:00: n per mom [place] reaction 00 [facility] Carbamaz Propensi Active Unknown - Tegretol U nivers epine ty to See comments 03-29 Decrease it y of adverse 00:00: RBC [place] reaction 00 [facility] Lorazepa Propensi Active Unknown - hallucina Univers m ty to See comments 03-29 tion ity of adverse 00:00: [place] reaction 00 [facility] Tegretol Adverse Active Changes Common Reaction blood values Sp shashank [facility] Ativan Adverse Active Hallucinatio Com mon Reaction ns [facility] NO KNOWN Allergy Active [facility] Social History Social Habit Start Date Stop Date Quantity Comments Source History SDOH [facility] Alcohol Std Medical Cente r Drinks History SDOH [facility] Alcohol Binge Medical [facility] History SDOH [facility] Alcohol Comment Medical C enter Exposure to 2021-11-03 2021-11-13 Not sure University SARS-CoV-2 00:00:00 11:27:00 [facility] (event) [place] Alcohol intake 2021-08-23 2021-08-[address] [facility] 00:00:00 00:00:00 non-drinker Medical Cente r (finding) Tobacco use and 2021-08-20 2021-08-[address] [facility] exposure 00:00:00 00:00:00 Medical Center History SDOH 2021-08-20 2021-08-[address] [facility] Alcohol Frequency 00:00:00 00:00:00 Medical Center Sex Assigned At [address] [facility] 00:00:00 00:00:00 Medical Center Smoking Status Start Date Stop Date Source Never smoker [facility] Medications Ordered Filled Start Stop Current Ordering Indication Dosage Frequency Signature Comments Components Source Medication Medication Date Date Medication? Clinician (SIG) Name Name OXcarbazepi Yes 900mg Take 1.5 U nivers ne 600 mg 7-28 tablets by ity of tablet 00:00: mouth in [place] [address] the [facility] morning Branch and 1.5 tablets in the evening. traZODone Yes Univers 50 mg 4-06 ity of tablet 00:00: [address] Branch traZODone 2021- Yes Univers 50 mg 4-06 ity of tablet 00:00: [address] traZODone Yes Univers 50 mg 4-06 ity of tablet 00:00: [address] fluticasone Yes Inhale by [facility] propionate 2-24 mouth via Luke s (FLOVENT 07:54: inhaler. Medic al HFA INHL) [address] [place] [address] montelukast Yes Take by [facility] sodium 2-24 mouth. [facility] (SINGULAIR 07:54: Medical ORAL) [address] [place] [address] cetirizine Yes Take by [facility] HCl 2-24 mouth. [facility] (CETIRIZINE 07:54: Medica l ORAL) [address] [place] [address] oxcarbazepi Yes Take by [facility] ne 2-24 mouth. [facility]ukes (TRILEPTAL 07:54: Medical ORAL) [address] [place] [address] risperidone Yes Take by [facility] (RISPERDAL 2-24 mouth. [facility]ukes ORAL) 07:54: Medical [address] [place] [address] ascorbic Yes Take by [facility] acid 2-24 mouth. [facility]ukes (VITAMIN C 07:54: Medical ORAL) [address] [place] [address] polyethylen Yes Take by [facility] e glycol 2-24 mouth. [facility]ukes 3350 07:54: Medical (MIRALAX [address] [place] [address] ORAL) wheat Yes Take by [facility] dextrin/keya 2-24 mouth. Lukes c gluc,lact 07:54: Medica l (BENEFIBER [address] [place] [address] PLUS CALCIUM ORAL) Lactobacill Yes Take by [facility] us 2-24 mouth. Lukes acidophilus 07:54: Medica l (PROBIOTIC Center ORAL) levalbutero Yes 1{puff} Inhale [address] l (XOPENEX 2-24 puff by [facility]ukes HFA) 45 07:54: mouth via Medic al mcg/actuati 07 inhaler Cente r on inhaler every 6 (six) hours as needed for Wheezing. amoxicillin Yes 500mg [id number] Take [address] (AMOXIL) 08-22 [id number] capsule Hattie storm 500 MG 00:00: 3D (500 mg Medical capsule 00 total) by Center mouth 3 (three) times daily. HYDROcodone 2021- No 1{tbl} Take [address] -acetaminop 2 03-05 tablet by Hattie storm hen (NORCO 00:00: 23:59 mouth Medic al 5-325) 00 :00 every 4 Center 5-325 mg (four) per tablet hours as needed for Pain for up to 10 days. Max Daily Amount: 6 tablets Multivitami Yes Take by Uni vers ns with 6 mouth. ity of Fluoride 13:27: [place] (MULTI-LUIS DANIEL 32 Medical MIN ORAL) Branch Lactobac Yes Take by Univer s no.41/Bifid 6- mouth. ity of obact no.7 13:27: [place] (PROBIOTIC- 32 Medical 10 ORAL) Branch Magnesium Yes Take by Unive rs Amino Acid 6- mouth. ity of Chelate 100 13:27: [place] mg Tab 32 Medical Branch docusate Yes 50mg Take 50 mg Uni vers sodium 50 - by mouth. ity o f mg capsule 13:27: [place] 32 Medical Branch ascorbic Yes 500mg Take 500 Univ ers acid, 6- mg by ity of vitamin C, 13:27: mouth. [place] 500 mg 32 Medical tablet Branch Multivitami Yes Take by Uni vers ns with 6 mouth. ity of Fluoride 13:27: [place] (MULTI-LUIS DANIEL 32 Medical MIN ORAL) Branch Lactobac Yes Take by Univer s no.41/Bifid 6- mouth. ity of obact no.7 13:27: [place] (PROBIOTIC- 32 Medical 10 ORAL) Branch Magnesium Yes Take by Unive rs Amino Acid 6- mouth. ity of Chelate 100 13:27: [place] mg Tab 32 Medical Branch docusate Yes 50mg Take 50 mg Uni vers sodium 50 6- by mouth. ity o f mg capsule 13:27: [place] [address] Medical Branch ascorbic Yes 500mg Take 500 Univ ers acid, 6-01 mg by ity of vitamin C, 13:27: mouth. [place] 500 mg 32 Medical tablet Branch Multivitami Yes Take by Uni vers ns with 6- mouth. ity of Fluoride 13:27: [place] (MULTI-LUIS DANIEL 32 Medical MIN ORAL) Branch Lactobac Yes Take by Univer s no.41/Bifid 6- mouth. ity of obact no.7 13:27: [place] (PROBIOTIC- 32 Medical 10 ORAL) Branch Magnesium Yes Take by Unive rs Amino Acid 6- mouth. ity of Chelate 100 13:27: [place] mg Tab [address] [place] [address] Branch docusate Yes 50mg Take 50 mg Uni vers sodium 50 6 by mouth. ity o f mg capsule 13:27: [address] ascorbic Yes 500mg Take 500 Univ ers acid, 6-01 mg by ity of vitamin C, 13:27: mouth. [place] 500 mg 32 Medical tablet Branch FLUoxetine Yes Univers 40 mg 5-06 ity of capsule 00:00: [place] [address] Medical Branch FLUoxetine Yes Univers 40 mg 5-06 ity of capsule 00:00: [address] FLUoxetine Yes Univers 40 mg 5-06 ity of capsule 00:00: [address] risperiDONE Yes Univer s 0.5 mg 4-29 ity of tablet 00:00: [address] risperiDONE 2020- Yes Univer s 0.5 mg 4-29 ity of tablet 00:00: [address] risperiDONE Yes Univer s 0.5 mg 4-29 ity of tablet 00:00: [place] [address] Medical Branch calcium Yes 500mg Take 500 Unive rs gluconate 1-08 mg by ity of 45 mg (500 13:51: mouth. [place] mg) [facility] Medical tablet Branch Melatonin 5 Yes 5mg Take 5 mg U nivers mg tablet 08 by mouth. ity o f 13:51: [place] 02 Medical Branch calcium Yes 500mg Take 500 Unive rs gluconate 1-08 mg by ity of 45 mg (500 13:51: mouth. [place] mg) Tab 02 Medical tablet Branch Melatonin 5 2018- Yes 5mg Take 5 mg U nivers mg tablet 1-08 by mouth. ity o f 13:51: [place] Medical Branch calcium 2018- Yes 500mg Take 500 Unive rs gluconate 1-08 mg by ity of 45 mg (500 13:51: mouth. [place] mg) Tab 02 Medical tablet Branch Melatonin 5 Yes 5mg Take 5 mg U nivers mg tablet 1-08 by mouth. ity o f 13:51: Medical Branch fluticasone Yes 50ug Use 50 mcg Univers 50 9-13 in each ity of mcg/actuati 00:00: [place]. [place] nasal 00 Medical spray Branch fluticasone Yes 50ug Use 50 mcg Univers 50 9-13 in each ity of mcg/actuati 00:00: [place]. [place] nasal 00 Medical spray Branch fluticasone Yes 50ug Use 50 mcg Univers 50 9-13 in each ity of mcg/actuati 00:00: [place]. [place] nasal 00 Medical spray Branch montelukast Yes TAKE 1 Univ ers 10 mg 9-06 TABLET BY ity of tablet 00:00: MOUTH EVERY Medical EVENING Branch montelukast Yes TAKE 1 Univ ers 10 mg 9-06 TABLET BY ity of tablet 00:00: MOUTH EVERY Medical EVENING Branch montelukast Yes TAKE 1 Univ ers 10 mg 9-06 TABLET BY ity of tablet 00:00: MOUTH EVERY Medical EVENING Branch fluticasone Yes INHALE 2 Un neptali (FLOVENT 8-06 PUFFS BY ity of HFA) 44 00:00: MOUTH [place] mcg/actuati 00 TWICE Medical on inhaler DAILY. USE Bra nch WITH SPACER, WASH MOUTH AFTER USE fluticasone Yes INHALE 2 Un neptali (FLOVENT 8-06 PUFFS BY ity of HFA) 44 00:00: MOUTH [place] mcg/actuati 00 TWICE Medical on inhaler DAILY. USE Bra nch WITH SPACER, WASH MOUTH AFTER USE fluticasone Yes INHALE 2 Un neptali (FLOVENT 8-06 PUFFS BY ity of HFA) 44 00:00: MOUTH [place] mcg/actuati 00 TWICE Medical on inhaler DAILY. USE Bra nch WITH SPACER, WASH MOUTH AFTER USE OXcarbazepi 2018-0 Yes 900mg Take 900 U nivers ne 600 mg 5-16 mg by ity of tablet 00:00: mouth. [place] Medical Branch OXcarbazepi 2017-0 Yes 900mg Take 900 U nivers ne 600 mg 5-16 mg by ity of tablet 00:00: mouth. [place] Medical Branch OXcarbazepi 2017-0 2- No 900mg Take 900 Univers ne 600 mg 5-16 07-28 mg by ity of tablet 00:00: 00:00 mouth. [place] 00 :00 Medical Branch cetirizine 2017- Yes TAKE 1 Unive rs 10 mg 5-03 TABLET BY ity of tablet 00:00: MOUTH [place] DAY Medical Branch levalbutero Yes USE 1 Unive rs l 0.63 mg/3 5-03 VIAL(3 ML) it y of mL 00:00: VIA [place] nebulizer 00 NEBULIZER Medic al solution EVERY 4 Branch HOURS NEEDED FOR WHEEZING cetirizine Yes TAKE 1 Unive rs 10 mg 5-03 TABLET BY ity of tablet 00:00: MOUTH [place] Medical Branch levalbutero Yes USE 1 Unive rs l 0.63 mg/3 5-03 VIAL(3 ML) it y of mL 00:00: VIA [place] nebulizer 00 NEBULIZER Medic al solution EVERY 4 Branch HOURS NEEDED FOR WHEEZING cetirizine Yes TAKE 1 Unive rs 10 mg 5-03 TABLET BY ity of tablet 00:00: MOUTH [place] Medical Branch levalbutero Yes USE 1 Unive rs l 0.63 mg/3 5-03 VIAL(3 ML) it y of mL 00:00: VIA [place] nebulizer 00 NEBULIZER Medic al solution EVERY 4 Branch HOURS NEEDED FOR WHEEZING Diazepam Yes Please set Uni vers .-15-. 02-28 dial at ity o f 5-20 mg 00:00: 17.5mg. [place] rectal gel 00 Administer Med ical NM as Branch needed for seizures lasting more than 3 minutes Diazepam Yes Please set Uni vers .11-11-1602-28 dial at ity o f 5-20 mg 00:00: 17.5mg. [place] rectal gel 00 Administer Med ical NM as Branch needed for seizures lasting more than 3 minutes Diazepam Yes Please set Uni vers .11-11-1602-28 dial at ity o f 5-20 mg 00:00: 17.5mg. [place] rectal gel 00 Administer Med ical NM as Branch needed for seizures lasting more than 3 minutes simethicone Yes 80mg Take 80 mg Univers 80 mg 5-25 by mouth. ity of chewable 00:00: [place] tablet [facility] simethicone Yes 80mg Take 80 mg Univers 80 mg 5-25 by mouth. ity of chewable 00:00: [place] tablet [facility] simethicone Yes 80mg Take 80 mg Univers 80 mg 5-25 by mouth. ity of chewable 00:00: [place] tablet 00 [facility] Montelukast Montelukast Yes Chemo 1 tablet Common Sodium Sodium Gray [facility] Flovent HFA Flovent HFA Yes Chemo 2 puffs [facility] Risperidone Risperidone Yes Chemo 0.5 tablet Common Gray [facility] Calcium Calcium Yes Chemo 2 tablets Co mmon Citrate + Citrate + Gray Spir it D3 D3 [facility] Fluoxetine Fluoxetine Yes Chemo 1 capsule Common HCl HCl [facility] Probiotic Probiotic Yes Chemo 1 capsule Common [facility] Emergen-C Emergen-C Yes Chemo as Com mon Immune Immune Gray directed [facility] Cetirizine Cetirizine Yes Chemo 1 tablet Common HCl HCl Gray [facility] Magnesium Magnesium Yes Chemo 1 tablet Common Gray with a Spirit meal [facility] MiraLax MiraLax Yes Chemo 17 gm [facility] Acetaminoph Acetaminoph Yes Chemo 1 tablet Common en en Gray as needed [facility] Gas-X Gas-X Yes Chemo 2 tablet Common [facility] Fiber Fiber Yes Chemo 2 tsp Common Gray [facility] Diastat Diastat Yes Chemo 17.5mg Commo n AcuDial AcuDial [facility] Oxcarbazepi Oxcarbazepi Yes Chemo 1.5 tablet Common ne ne [facility] Fluticasone Fluticasone Yes Chemo 1 spray in Common Propionate Propionate Gray each Sp shashank nostril - [facility] Fluoxetine Fluoxetine Yes Chemo 1 capsule Common HCl HCl [facility] Trazodone Trazodone Yes Chemo 0.5 to 1 Common HCl HCl Gray tablet at Spirit bedtime - [facility] Sennosides- Sennosides- Yes Chemo 1 tablet Common Docusate Docusate Gray [facility] Sodium Sodium [facility] Levalbutero Levalbutero Yes Chemo 3 ml Common l HCl l HCl [facility] Vital Signs Vital Name Observation Time Observation Value Comments Source Systolic blood 2021-11-13 16:34:00 120 mm[Hg] Univer sity [facility] Diastolic blood 2021-11-13 16:34:00 76 [facility]Hg[facility] height 2021-11-13 16:34:00 172.7 cm [facility] Body weight 2021-11-13 16:34:00 87.091 kg [facility] BMI 2021-11-13 16:34:00 29.19 kg/m2 [facility] HEIGHT 2021-08-22 12:38:00 170.2 cm WEIGHT 2021-08-22 12:38:00 83.4 kg HEIGHT 2021-08-20 15:00:00 170.2 cm WEIGHT 2021-08-20 15:00:00 87.544 kg HEIGHT 2021-08-22 12:38:00 170.2 cm WEIGHT 2021-08-22 12:38:00 83.4 kg HEIGHT 2021-08-20 15:00:00 170.2 cm WEIGHT 2021-08-20 15:00:00 87.544 kg HEIGHT 2021-08-22 12:38:00 170.2 cm WEIGHT 2021-08-22 12:38:00 83.4 kg HEIGHT 2021-08-20 15:00:00 170.2 cm WEIGHT 2021-08-20 15:00:00 87.544 kg Body temperature 2021-08-22 19:30:00 36.28 Lillie [facility] Systolic blood 2021-08-22 19:25:00 117 mm[Hg] [facility] Diastolic blood 2021-08-22 19:25:00 66 mm[Hg] [facility] Heart rate 2021-08-22 19:25:00 119 /min [facility] Respiratory rate 2021-08-22 19:25:00 11 /min [facility] Oxygen saturation in 2021-08-22 19:25:00 90 /min [facility] Arterial blood by Medical Ce nter Pulse oximetry Body height 2021-08-22 12:38:00 170.2 cm [facility] Body weight 2021-08-22 12:38:00 83.4 kg [facility] BMI 2021-08-22 12:38:00 28.79 kg/m2 [facility] Procedures Procedure Date / Time Performed Performing Clinician Sourc e SCALING AND ROOT 2021-08-22 15:22:00 Stefany Bennett [facility] PLANING, PERIODONTAL Medical [facility] ter POCT-GLUCOSE METER 2021-08-22 12:29:00 Stefany Bennett [facility] Plan of Care Planned Activity Planned Date Details Comments Source Future Scheduled 2022-02-[address] [facility] Test 00:00:00 (#1) [code = [facility] INFLUENZA VACCINE (#1)] Future Scheduled 2017 DTAP/TDAP/TD [facility] Test 00:00:00 VACCINES (3 - Tdap) [facility] [code = DTAP/TDAP/TD VACCINES (3 - Tdap)] Future Scheduled [address] [facility] Test 00:00:00 SCREENING [code = Medical Ce nter HEPATITIS C SCREENING] Future Scheduled 1999-01-08 COVID-[address] [facility] Test 00:00:00 (#1) [code = [facility] Center COVID-19 VACCINE (#1)] Encounters Start End Encounter Admission Attending Care Care Encounter Source Date/Time Date/Time Type Type Clinicians Facility Department ID 2021-08-16 Outpatient Gray, STLMLC STLMLC [id number] Common 13:56:01 Chemo [facility] 2021-07-25 Outpatient Gray, STLMLC STLMLC [id number] Common 14:09:04 Chemo [id number] [facility] 2021-07-25 Outpatient Gray, STLMLC STLMLC [id number] Common 13:33:54 Chemo [id number] [facility] 2021-07-25 Outpatient Gray, STLMLC STLMLC [id number] Common 13:05:58 Chemo [id number] [facility] 2021-07-25 Outpatient Gray, STLMLC STLMLC [id number] Common 11:51:52 Chemo [id number] [facility] 2021-07-25 Outpatient Gray, STLMLC STLMLC [id number] Common 11:51:13 Chemo [id number] [facility] 2021-07-25 Outpatient Gray, STLMLC STLMLC [id number] Common 11:50:41 Chemo [id number] [facility] 2021-07-25 Outpatient Gray, STLMLC STLMLC [id number] Common 11:43:21 Chemo [id number] [facility] 2021-07-25 Outpatient Gray, STLMLC STLC [id number] Common 11:19:05 Chemo [id number] [facility] 2022-02-12 2022-02-12 ambulatory STLMLC STLC [id number] Common 00:00:00 00:00:00 [facility] 2022-01-24 2022-01-24 James Conti DEBETITO [id number] Univers 00:00:00 00:00:00 [facility] [id number] itpraveena killian [place] [id number] Alexei as MAYDA?BLEA [id number] Pr solitario [address] MEDICAL OFFICE BUILDING 2021-11-13 2021-11-13 Office Sushila [facility] [id number] Univers 11:20:00 11:56:54 Visit [facility] [id number] itAugustine [id number] Alexei as MAYDA?BLEA [id number] Pr j[address] OFFICE BUILDING 2021-08-31 2021-08-31 Documentat Kishor [facility] [id number] [facility] 00:[facility] 00:00:00 ion Stefany [facility] 2021-08-22 2021-08-22 Outpatient [facility] [id number] [address] [place] [address] 11:19:00 23:59:00 Raymond Medicin e 2021-08-22 2021-08-22 Hospital Kishor [facility] [id number] 11:19:00 20:45:00 Encounter Stefany Jensenne Rivera [facility] 2021-08-22 2021-08-22 Outpatient ADELAIDE BENNETT Surgery [id number] [facility] 11:19:00 20:45:00 STEFANY 2021-08-22 2021-08-22 Anesthesia Leroy Oneill [facility] [id number] [facility] 15:10:00 17:41:00 Event Syed Bryant [facility] 2021-08-22 2021-08-22 Surgery Kishor [facility] [id number] 13:33[facility]00 15:07:00 [facility] 2021-08-22 2021-08-22 Orders Kishor [facility] [id number] 00:00:00 00:00:00 Only Stefany Sergio [facility] 2021-08-22 2021-08-22 Orders Kishor [facility] [id number] 00:[facility]00 00:00:00 [facility] 2021-08-22 2021-08-22 Grady Bennett [facility] [id number] 00:00:00 00:00:00 Only Stefany [facility] 2021-08-22 2021-08-22 Grady Bennett [facility] [id number] 00:00:00 00:00:00 Only Stefany [facility] 2021-08-20 2021-08-20 Outpatient EL [facility] [id number] [facility] 16:58:39 23:59:00 2021-08-20 2021-08-20 [facility] [id number] 14:55:00 23:59:00 [facility] 2021-08-20 2021-08-20 Travel [facility] [id number] [facility] 00:[facility]:00 00:00:00 [facility] 2021-08-17 2021-08-17 ambulatory STLMLC STLMLC [id number] Common 00:00:00 00:00:00 [facility] 2021-08-08 2021-08-08 Grady Bennett [facility] [id number] 00:00:00 00:00:00 Only Stefany [facility] 2021-08-08 2021-08-08 ambulatory STLMLC STLMLC [id number] Common 00:00:00 00:00:00 [facility] 2021-05-03 2021-05-03 ambulatory STLMLC STLMLC [id number] Common 00:00:00 00:00:00 [facility] 2021-01-30 2021-01-30 Outpatient STLMLC STLMLC [id number] Common 00:00:00 00:00:00 [facility] 2020-10-24 2020-10-24 Outpatient STLMLC STLMLC [id number] Common 00:00:00 00:00:00 [facility] 2020-08-08 2020-08-08 Outpatient STLMLC STLMLC [id number] Common 00:00:00 00:00:00 [facility] 2020-04-04 2020-04-04 Outpatient STLMLC STLC [id number] Common 00:00:00 00:00:00 [facility] 2020-03-02 2020-03-02 Outpatient [facility] [id number] Common 14:50:00 14:50:[address] Sp[address] Drive [facility] 2019-12-15 2019-12-15 Outpatient [facility] [id number] Common 15:29:00 15:29:00 [address] Spir [address] Drive [facility] 2019-11-30 2019-11-30 Outpatient [facility] [id number] Common 14:00:00 14:00:00 [address] Spir [address] Drive [facility] 2019-10-19 2019-10-19 Outpatient [facility] [id number] Common 13:30:00 13:30:00 [address] Spir [address] Drive [facility] Results Test Description Test Time Test Comments Results Result Comments Source POC-Glucose meter 2021-08-22 12:44:17 Test Item Value Reference Range Interpretation Comme nts POC-Glucose Meter (test code = 77 mg/dL 70-110 : TESTED AT [facility] [address] [facility] 1538) [facility], 770 30: Call Center Trainer/Techni mitchell ID = [id number] for RICHI GARCIA Lab Interpretation (test code = Normal 30506-0) [facility] [id number] 12:44:17 Test Item Value Reference Range Interpretation Comments POC-GLUCOSE METER 77 mg/dL 70-110 : TESTED A T [facility] 6720 (BEAKER) (test code = REFUGIO Bajwa [facility], 1538) 160[address]: Call Center Trainer/Techni mitchell ID = [id number] for RICHI SOTELO
[2022-03-19] MEDS ORDERED: IBUPROFEN 400 MG TAB ONE (16:24)
--- NOTE | 2022-03-19 16:42 | RAD REPORT ---
EXAM DESCRIPTION: USExtremity Venous Uni Ltd03/19/2022 4:31 pm CLINICAL HISTORY: left leg pain COMPARISON: 2014 FINDINGS: Left common femoral, superficial femoral, popliteal and posterior tibial veins are compre ssible and demonstrate augmentation. Doppler demonstrates good flow. Grayscale, color and spectral analysis performed on all vessels IMPRESSION: No evidence of deep venous thrombosis involving the left lower extremity.
--- NOTE | 2022-03-19 17:30 | RAD REPORT ---
EXAM DESCRIPTION: CT - Pelvis Wo Cont - 03/19/2022 5:15 pm CLINICAL HISTORY: Pelvic pain COMPARISON: None. TECHNIQUE: Computed axial tomography of the pelvis was obtained. Coronal and sagittal reconstruction performed All CT scans are performed using dose optimization technique as appropriate and may include automated exposure control or mA/KV adjustment according to patient size. FINDINGS: No fracture or dislocation is seen. No significant joint effusion. Muscles demonstrate normal density. No subcutaneous contusion. IMPRESSION: No fracture seen If the patient continues to have symptoms to suggest an occult fracture MRI would be recommended
--- NOTE | 2022-03-19 17:44 | RAD REPORT ---
EXAM DESCRIPTION: Herve Fisher Left03/19/2022 3:53 pm CLINICAL HISTORY: Left leg pain FINDINGS: No fracture is seen Diffuse edema within subcutaneous tissues
[2022-03-19 18:38] LABS: SARS-CoV-2 Antigen Rapid Res Negative (Negative)
--- NOTE | 2022-03-19 18:41 | EDPHYS ---
Physician Documentation [facility] Name: Jeff Dawkins Age: 21 yrs Sex: Male : 2000 Arrival Date: 03/19/2022 Time: 12:40 Bed Treatment Private MD: Isaac [facility] ED Physician Monica Jacobs HPI: 03/19 19:29 This 21 yrs old Male presents to ER via Ambulatory with complaints of Leg Pain, Leg snw Swelling. 19:29 The patient presents with pain, that is acute. The complaints affect the lateral aspect snw of left calf, left calf, medial aspect of left calf and left mendoza. Context: resulted from an unknown cause, the patient is not able to bear weight, the patient is not able to ambulate, pt is nonverbal, Mom states he is normally running around the house but today pt was on his bedroom floor and seems to be in pain.. Onset: The symptoms/episode began/occurred suddenly, today. Treatment prior to arrival includes: no previous treatment. Severity of symptoms: At their worst the symptoms were moderate. It is unknown whether or not the patient has had similar symptoms in the past. The patient has not recently seen a physician. pt used to wear compression stockings but has not in a while. Historical: - Allergies: 13:22 Ativan; [facility] 13:22 Carbamazepine; [facility] 13:22 Lorazepam; 5 13:22 Tegretol; jh5 - PMHx: 13:22 Bonchial Pulmonary dysplasia; Cerebral Palsy; Heart Valve problem; Non-verbal; 5 scoliosis; Seizures; - PSHx: 13:22 Dental surgeries; eye surgery; G-tube; hernia repair; knee surgery; Tonsillectomy; 5 - Immunization history:: Adult Immunizations up to date. - Social history:: Smoking status: Patient denies any tobacco usage or history of. ROS: 19:29 Constitutional: Negative for fever, chills, and weight loss, Eyes: Negative for injury, snw pain, redness, and discharge, ENT: Negative for injury, pain, and discharge, Neck: Negative for injury, pain, and swelling, Cardiovascular: Negative for chest pain, palpitations, and edema, Respiratory: Negative for shortness of breath, cough, wheezing, and pleuritic chest pain, Abdomen/GI: Negative for abdominal pain, nausea, vomiting, diarrhea, and constipation, Back: Negative for injury and pain, : Negative for injury, bleeding, discharge, and swelling, Skin: Negative for injury, rash, and discoloration, Neuro: Negative for headache, weakness, numbness, tingling, and seizure, Psych: Negative for depression, anxiety, suicide ideation, homicidal ideation, and hallucinations. 19:29 MS/extremity: Positive for injury or acute deformity, swelling, of the left lower leg. Exam: 19:29 Constitutional: This is a well developed, well nourished patient who is awake, alert, snw and in no acute distress. Head/Face: Normocephalic, atraumatic. Eyes: Pupils equal round and reactive to light, extra-ocular motions intact. Lids and lashes normal. Conjunctiva and sclera are non-icteric and not injected. Cornea within normal limits. Periorbital areas with no swelling, redness, or edema. ENT: Nares patent. No nasal discharge, no septal abnormalities noted. Tympanic membranes are normal and external auditory canals are clear. Oropharynx with no redness, swelling, or masses, exudates, or evidence of obstruction, uvula midline. Mucous membranes moist. Neck: Trachea midline, no thyromegaly or masses palpated, and no cervical lymphadenopathy. Supple, full range of motion without nuchal rigidity, or vertebral point tenderness. No Meningismus. Chest/axilla: Normal chest wall appearance and motion. Nontender with no deformity. No lesions are appreciated. Cardiovascular: Regular rate and rhythm with a normal S1 and S2. No rubs. +gallop and 4 over 6 murmur. no JVD. No pulse deficits. Respiratory: Lungs have equal breath sounds bilaterally, clear to auscultation and percussion. No rales, rhonchi or wheezes noted. No increased work of breathing, no retractions or nasal flaring. Abdomen/GI: Soft, non-tender, with normal bowel sounds. No distension or tympany. No guarding or rebound. No evidence of tenderness throughout. Back: No spinal tenderness. No costovertebral tenderness. Full range of motion. Skin: Warm, dry with normal turgor. Normal color with no rashes, no lesions, and no evidence of cellulitis. Neuro: Awake and alert. Motor strength 5/5 in all extremities. Pt does not express pain. 19:29 Musculoskeletal/extremity: Extremities: mild edema to bilateral legs, Circulation is intact in all extremities. Vital Signs: 13:20 BP 129 / 73; Pulse 82; Resp 18; Temp 98.6; Pulse Ox 93% on R/A; Weight 83.91 kg; Height jh5 5 ft. 7 in. (170.18 cm); 13:20 Body Mass Index 28.97 (83.91 kg, 170.18 cm) 5 MDM: 15:03 Patient medically screened. snw 19:23 Data reviewed: vital signs, nurses notes. Data interpreted: Pulse oximetry: on room air snw is 93 %. Interpretation: acceptable. Counseling: I had a detailed discussion with the patient and/or guardian regarding: the historical points, exam findings, and any diagnostic results supporting the discharge/admit diagnosis, lab results, radiology results, the need for outpatient follow up, to return to the emergency department if symptoms worsen or persist or if there are any questions or concerns that arise at home. Response to treatment: the patient's symptoms have mildly improved after treatment. Special discussion: Based on the history and exam findings, there is no indication for further emergent testing or inpatient evaluation. I discussed with the patient/guardian the need to see the primary care provider for further evaluation of the symptoms. 03/19 17:33 Order name: SARS RAPID; Complete Time: 18:41 snw 03/19 17:33 Order name: Flu; Complete Time: 18:30 snw 03/19 14:08 Order name: Tib Fib Left XRAY; Complete Time: 17:53 snw 03/19 16:08 Order name: US Extremity Venous Unilateral Ltd; Complete Time: 16:51 snw 03/19 16:08 Order name: Pelvis Wo Cont CT; Complete Time: 17:32 snw Administered Medications: 16:19 Drug: Motrin (ibuprofen) 800 mg Route: PO; ap3 17:49 Follow up: Response: No adverse reaction ap3 Disposition Summary: 03/19/22 18:40 Discharge Ordered Location: Home snw Condition: Stable snw Diagnosis - Edema, unspecified snw Followup: snw - With: Emergency Department - When: As needed - Reason: Worsening of condition Followup: snw - With: Private Physician - When: 1 - 2 days - Reason: Recheck today's complaints, Continuance of care, Re-evaluation by your physician Discharge Instructions: - Discharge Summary Sheet snw - Edema snw Forms: - Medication Reconciliation Form snw - Thank You Letter snw - Antibiotic Education snw - Prescription Opioid Use snw Prescriptions: - Diclofenac Sodium 75 mg Oral Tablet Sustained Release - take 1 tablet by ORAL route 2 times per day; 30 tablet; Refills: 0, Product snw Selection Permitted Signatures: Dispatcher [employer] Aubrie Olvera, EMEKA-C DIRECTOR [employer] Audrey Glass, RN RN ap3 Gila Santoro RN RN jh5
--- NOTE | 2022-03-19 18:41 | ER ---
Nurse's Notes [facility] Name: Jeff Dawkins Age: 21 yrs Sex: Male : 2000 Arrival Date: 03/19/2022 Time: 12:40 Bed Treatment Private MD: Chemo Gray Diagnosis: Edema, unspecified Presentation: 03/19 13:20 Chief complaint: Patient states: doesn't want to put weight on left leg, pt usually jh5 walks around. Pt is non-verbal, mother is caregiver. Coronavirus screen: Vaccine status: Patient reports receiving the 2nd dose of the covid vaccine. Client denies travel out of the [place] in the last 14 days. Ebola Screen: Patient negative for fever greater than or equal to 101.5 degrees Fahrenheit, and additional compatible Ebola Virus Disease symptoms Patient denies exposure to infectious person. Patient denies travel to an Ebola-affected area in the 21 days before illness onset. Initial Sepsis Screen: Does the patient meet any 2 criteria? No. Patient's initial sepsis screen is negative. Does the patient have a suspected source of infection? No. Patient's initial sepsis screen is negative. Risk Assessment: Do you want to hurt yourself or someone else? Patient reports no desire to harm self or others. Onset of symptoms was February 2022. 13:20 Method Of Arrival: Ambulatory [facility] 13:20 Acuity: JALEEL 3 jh5 Triage Assessment: 13:22 General: Appears in no apparent distress. well groomed, Behavior is calm, cooperative, jh5 appropriate for age. 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 - Social history:: Smoking status: Patient denies any tobacco usage or history of. Screenin:20 Abuse screen: Denies threats or abuse. Nutritional screening: No deficits noted. ap3 Tuberculosis screening: No symptoms or risk factors identified. Fall Risk No fall in past 12 months (0 pts). Secondary diagnosis (15 points) impaired mobility, No IV (0 pts). Ambulatory Aid- Crutches/Cane/Walker (15 pts). Gait- Impaired (20 pts.). Mental Status- Overestimates/Forgets Limitations (15 pts.). Total Perez Fall Scale indicates High Risk Score (45 or more points). Fall prevention measures have been instituted. Side Rails Up X 2 Placed Close to Nursing Station Frequent Obs/Assessments Occuring Family Present and informed to notify staff if the need to leave the bedside As available patient and family educated on Fall Prevention Program and Strategies. Assessment: 16:19 General: Appears in no apparent distress. Pain: Unable to use pain scale. patient is ap3 non-verbal. Cardiovascular: Patient's skin is warm and dry. Respiratory: Airway is patent Respiratory effort is even, unlabored. Musculoskeletal: Swelling present in sapna lower extremities. 18:07 Reassessment: Patient and/or family updated on plan of care and expected duration. Pain ap3 level reassessed. Patient is alert, oriented x 3, equal unlabored respirations, skin warm/dry/pink. Vital Signs: 13:20 BP 129 / 73; Pulse 82; Resp 18; Temp 98.6; Pulse Ox 93% on R/A; Weight 83.91 kg; Height jh5 5 ft. 7 in. (170.18 cm); 13:20 Body Mass Index 28.97 (83.91 kg, 170.18 cm) jh5 ED Course: 12:40 Patient arrived in ED. rg4 12:40 Chemo Gray DO is Private Physician. rg4 13:22 Triage completed. jh5 13:22 Arm band placed on right wrist. jh5 14:17 Monica Jacobs MD is Attending Physician. sd2 14:37 Hannah Love, TEJINDER is Primary Nurse. ss 14:38 Aubrie Juan FNP-C is PHCP. snw 15:54 Tib Fib Left XRAY In Process Unspecified. EDMS 16:20 Patient has correct armband on for positive identification. Bed in low position. Call ap3 light in reach. Side rails up X2. Adult w/ patient. Pulse ox on. NIBP on. Door closed. Noise minimized. Warm blanket given. 16:33 US Extremity Venous Unilateral Ltd In Process Unspecified. EDMS 17:[address] In Process Unspecified. EDMS 18:05 SARS RAPID Sent. ap3 18:05 Flu Sent. ap3 18:07 COVID swab sent to lab. Flu and/or RSV swab sent to lab. ap3 18:55 No provider procedures requiring assistance completed. Patient did not have IV access ap3 during this emergency room visit. Administered Medications: 16:19 Drug: Motrin (ibuprofen) 800 mg Route: PO; ap3 17:49 Follow up: Response: No adverse reaction ap3 Medication: 13:23 VIS not applicable for this client. jh5 Outcome: 18:40 Discharge ordered by . snw 18:55 Discharged to home via wheelchair. ap3 18:55 Condition: good 18:55 Discharge instructions given to patient, family, Instructed on discharge instructions, follow up and referral plans. medication usage, Demonstrated understanding of instructions, follow-up care, medications, Prescriptions given X 1. 18:55 Patient left the ED. ap3 Signatures: Dispatcher [employer] EDMS Aubrie Juan, LABORER [employer] Hannah Love, RN RN Bonnie Garcia rg4 Audrey Glass RN RN ap3 Gila Santoro RN RN jh5 Monica Jacobs MD MD sd2
[2022-03-20 23:17] VITALS: BP 129/73; TEMP 98.6; O2SAT 93
== END 2022-03-19 18:55 | disposition home or self-care (01) ==
LOC: ER 12:38
DX: R60.9 Edema, unspecified (principal); M79.605 Pain in left leg; Z20.822 Contact with and (suspected) exposure to COVID-19; Z88.8 Allergy status to other drugs, medicaments and biological substances
CPT/HCPCS: 36415; 72192; 87804; 87811; 93971; 99284

== ENCOUNTER 2022-03-21 20:06 | Emergency (ER) | payer OTHER ==
--- OUTSIDE RECORDS SUMMARY | 2022-03-21 20:10 | XMS REPORT | Continuity of Care Document ---
:2000 Author Organization [facility] t Address [address] [place] [address] Care Team Providers Name Role Phone Chemo Gray Primary Care Physician Chemo Gray Attending Clinician Unavailable Jonathan Conti MD Attending Clinician Stefany Iverson DDS Attending Clinician [phone] STEFANY IVERSON Attending Clinician Unavailable Leroy Oneill MD Attending Clinician Syed Crocker Attending Clinician Unavailable STEFANY IVERSON Admitting Clinician Unavailable Payers Payer Name Policy Type Policy Number Effective Date Expiration Date S ource Problems Condition Condition Condition Status Onset Resolution Last Treating Co mments Source Name Details Category Date Date Treatment Clinician Date No known No known Disease Unive rs active active ity of problems problems [facility] Allergies, Adverse Reactions, Alerts Allergy Allergy Status Severity Reaction(s) Onset Inactive Treating Comm ents Source Name Type Date Date Clinician Lorazepa [facility]i [facility] adverse [facility]: Medical reaction 00 Center s Carbamaz Propensi Active [facility] to 2- [facility] adverse 00:00: Medical reaction 00 Center s LORAZEPA Allergy Active [facility]21 [facility] 00:[facility]: Medical 00 Center CARBAMAZ Allergy Active [facility] -21 [facility] 00[facility]: Medical 00 Center Quetiapi Propensi Active - Severe Uni vers ne ty to See comments 07-06 aggressio i ty of adverse 00:00: n per mom [place] reaction Medical s Branch Carbamaz Propensi Active Unknown - Tegretol U nivers epine ty to See comments 03-29 Decrease it y of adverse 00:00: RBC [place] reaction Medical s Branch Lorazepa Propensi Active Unknown - hallucina Univers m ty to See comments 03-29 tion ity of adverse 00:00: [place] reaction 00 Medical s Branch NO KNOWN Allergy Active [facility] Tegretol Adverse Active Changes Common Reaction blood values Sp shashank - [facility] Ativan Adverse Active Hallucinatio Com mon Reaction ns Spirit - [facility] Social History Social Habit Start Date Stop Date Quantity Comments Source History SDOH [facility] Alcohol Std Medical Cente r Drinks History SDOH [facility] Alcohol Binge Medical Cord[facility] ter History SDOH [facility] Alcohol Comment Medical C enter Exposure to 2021-11-03 2021-11-13 Not sure University SARS-CoV-2 00:00:00 11:27:00 [facility] (event) [place] Alcohol intake 2021-08-23 2021-08-[address] [...] Date Source Never smoker [facility] Medications Ordered Filled Start Stop Current Ordering Indication Dosage Frequency Signature Comments Components Source Medication Medication Date Date Medication? Clinician (SIG) Name Name OXcarbazepi Yes 900mg Take 1.5 U nivers ne 600 mg 7-28 tablets by ity of tablet 00:00: mouth in [place] [id number] the Medical morning Branch and 1.5 tablets in the evening. traZODone Yes Univers 50 mg 4-06 ity of tablet 00:00: [address] traZODone 2021-0 Yes Univers 50 mg 4-06 ity of tablet 00:00: [address] traZODone Yes Univers 50 mg 4-06 ity of tablet 00:00: [address] fluticasone Yes Inhale by [facility] propionate 2-24 mouth via Luke s (FLOVENT 07:54: inhaler. Medic al HFA INHL) [address] [place] [address] montelukast Yes Take by [facility] sodium 2-24 [facility]. [facility] (SINGULAIR 07:54: Medical ORAL) [address] [place] [address] cetirizine Yes Take by [facility] HCl 2-24 [facility]. [facility] (CETIRIZINE 07:54: Medica l ORAL) [address] [place] [address] oxcarbazepi Yes Take by [facility] ne 2-24 [facility]. [facility] (TRILEPTAL 07:54: Medical ORAL) [address] [place] [address] risperidone Yes Take by [facility] (RISPERDAL 2-24 mouth. [facility]ukes ORAL) 07:54: Medical [address] [place] [address] ascorbic Yes Take by [facility] acid 2-24 mouth. [facility]ukes (VITAMIN C 07:54: Medical ORAL) [address] [place] [address] polyethylen Yes Take by [facility] e glycol 2-24 mouth. [facility] 3350 07:54: Medical (MIRALAX Center ORAL) wheat 0 Yes Take by [facility] dextrin/keya 2-24 mouth. [facility] c gluc,lact 07:54: Medica l (BENEFIBER Center PLUS CALCIUM ORAL) Lactobacill Yes Take by [facility] us 2-24 mouth. [facility]ukes acidophilus 07:54: Medica l (PROBIOTIC Center ORAL) levalbutero Yes 1{puff} Inhale [address] l (XOPENEX 2-24 puff by [facility]ukes HFA) 45 07:54: mouth via Medic al mcg/actuati 07 inhaler Cente r on inhaler every 6 (six) hours as needed for Wheezing. fluticasone Yes Inhale by [facility] propionate 2-24 mouth via Luke s (FLOVENT 07:54: inhaler. Medic al HFA INHL) 07 Center montelukast Yes Take by [facility] sodium 2-24 mouth. [facility]ukes (SINGULAIR 07:54: Medical ORAL) 07 Center cetirizine Yes Take by [facility] HCl 2-24 mouth. [facility]ukes (CETIRIZINE 07:54: Medica l ORAL) 07 Center oxcarbazepi Yes Take by [facility] ne 2-24 mouth. [facility] (TRILEPTAL 07:54: Medical ORAL) [address] [place] [address] risperidone Yes Take by [facility] (RISPERDAL 2-24 mouth. [facility]ukes ORAL) 07:54: Medical 07 [place] ascorbic Yes Take by [facility] acid 2-24 mouth. [facility]ukes (VITAMIN C 07:54: Medical ORAL) [address] [place] [address] polyethylen Yes Take by [facility] e glycol 2-24 mouth. [facility]ukes 3350 07:54: Medical (MIRALAX 07 Center ORAL) wheat Yes Take by [facility] dextrin/keya 2-24 mouth. Earline c gluc,lact 07:54: Medica l (BENEFIBER Center PLUS CALCIUM ORAL) Lactobacill Yes Take by [facility] us 2-24 mouth. [place]line acidophilus 07:54: Medica l (PROBIOTIC 07 Center ORAL) levalbutero Yes 1{puff} Inhale [address] l (XOPENEX 2-24 puff by Lukes HFA) 45 07:54: mouth via Medic al mcg/actuati 07 inhaler Cente r on inhaler every 6 (six) hours as needed for Wheezing. amoxicillin Yes 500mg [id number] Take [address] (AMOXIL) 2-23 [id number] capsule Hattie kes 500 MG 00:00: 3D (500 mg Medical capsule 00 total) by Center mouth 3 (three) times daily. amoxicillin Yes 500mg [id number] Take [address] (AMOXIL) 08-22 [id number] capsule Hattie storm 500 MG 00:00: 3D (500 mg Medical capsule 00 total) by Center mouth 3 (three) times daily. HYDROcodone 2021- No 1{tbl} Take [address] -acetaminop 2-19 09-05 tablet by Hattie hicks (NORCO 00:00: 23:59 mouth Medic al 5-325) 00 :00 every 4 Center 5-325 mg (four) per tablet hours as needed for Pain for up to 10 days. Max Daily Amount: 6 tablets HYDROcodone 2021- No 1{tbl} Take [address] -acetaminop 08-22-05 tablet by Hattie hicks (NORCO 00:00: 23:59 mouth Medic al 5-325) 00 :00 every 4 Center 5-325 mg (four) per tablet hours as needed for Pain for up to 10 days. Max Daily Amount: 6 tablets Magnesium Yes Take by Unive rs Amino Acid 6-01 mouth. ity of Chelate 100 13:27: [place] mg Tab 32 Medical Branch docusate Yes 50mg Take 50 mg Uni vers sodium 50 6-01 by mouth. ity o f mg capsule 13:27: [address] Branch ascorbic Yes 500mg Take 500 Univ ers acid, 6-01 mg by ity of vitamin C, 13:27: mouth. [place] 500 mg 32 Medical tablet Branch Multivitami Yes Take by Uni vers ns with 6- mouth. ity of Fluoride 13:27: [place] (MULTI-LUIS DANIEL 32 Medical MIN ORAL) Branch Lactobac Yes Take by Univer s no.41/Bifid 6-01 mouth. ity of obact no.7 13:27: [place] (PROBIOTIC- 32 Medical 10 ORAL) Branch Magnesium Yes Take by Unive rs Amino Acid 6-01 mouth. ity of Chelate 100 13:27: [place] mg Tab 32 Medical Branch docusate Yes 50mg Take 50 mg Uni vers sodium 50 6-01 by mouth. ity o f mg capsule 13:27: [address] Branch ascorbic Yes 500mg Take 500 Univ ers acid, 6-01 mg by ity of vitamin C, 13:27: mouth. [place] 500 mg 32 Medical tablet Branch Multivitami Yes Take by Uni vers ns with 6 mouth. ity of Fluoride 13:27: [place] (MULTI-LUIS DANIEL 32 Medical MIN ORAL) Branch Lactobac Yes Take by Univer s no.41/Bifid 6- mouth. ity of obact no.7 13:27: [place] (PROBIOTIC- 32 Medical 10 ORAL) Branch Magnesium Yes Take by Unive rs Amino Acid 11-28 mouth. ity of Chelate 100 13:27: [place] mg Tab 32 Medical Branch docusate Yes 50mg Take 50 mg Uni vers sodium 50 11-28 by mouth. ity o f mg capsule 13:27: [place] [address] Medical Branch ascorbic Yes 500mg Take 500 Univ ers acid, 6 mg by ity of vitamin C, 13:27: mouth. [place] 500 mg 32 Medical tablet Branch Multivitami Yes Take by Uni vers ns with 11-28 mouth. ity of Fluoride 13:27: [place] (MULTI-LUIS DANIEL 32 Medical MIN ORAL) Branch Lactobac Yes Take by Univer s no.41/Bifid 11-28 mouth. ity of obact no.7 13:27: [place] (PROBIOTIC- 32 Medical 10 ORAL) Branch FLUoxetine Yes Univers 40 mg 5-06 ity of capsule 00:00: Medical Branch FLUoxetine Yes Univers 40 mg 5-06 ity of capsule 00:00: Medical [place] FLUoxetine Yes Univers 40 mg 5-06 ity of capsule 00:00: Medical Branch risperiDONE Yes Univer s 0.5 mg 4-29 ity of tablet 00:00: Medical Branch risperiDONE Yes Univer s 0.5 mg 4-29 ity of tablet 00:00: Medical Branch risperiDONE Yes Univer s 0.5 mg 4-29 ity of tablet 00:00: 00 Medical Branch calcium Yes 500mg Take 500 Unive rs gluconate 1-08 mg by ity of 45 mg (500 13:51: mouth. [place] mg) Tab 02 Medical tablet Branch Melatonin 5 Yes 5mg Take 5 mg U nivers mg tablet 1-08 by mouth. ity o f 13:51: Medical Branch calcium Yes 500mg Take 500 Unive rs gluconate 1-08 mg by ity of 45 mg (500 13:51: mouth. [place] mg) Tab 02 Medical tablet Branch Melatonin 5 Yes 5mg Take 5 mg U nivers mg tablet 1-08 by mouth. ity o f 13:51: [place] Medical Branch calcium Yes 500mg Take 500 Unive rs gluconate 1-08 mg by ity of 45 mg (500 13:51: mouth. [place] mg) Tab 02 Medical tablet Branch Melatonin 5 Yes 5mg Take 5 mg U nivers mg tablet 1-08 by mouth. ity o f 13:51: [place] Medical Branch fluticasone Yes 50ug Use 50 [...] on nasal 00 Medical spray Branch montelukast 0 Yes TAKE 1 Univ ers 10 mg 9-06 TABLET BY ity of tablet 00:00: MOUTH EVERY Medical EVENING Branch montelukast Yes TAKE 1 Univ ers 10 mg 9-06 TABLET BY ity of tablet 00:00: MOUTH [place] EVERY Medical EVENING Branch montelukast Yes TAKE 1 Univ ers 10 mg 9-06 TABLET BY ity of tablet 00:00: MOUTH [place] 00 EVERY Medical EVENING Branch fluticasone 0 Yes INHALE 2 Un neptali (FLOVENT 8-06 [...] WITH SPACER, WASH MOUTH AFTER USE fluticasone 2017-0 Yes INHALE 2 Un neptali (FLOVENT 8-06 PUFFS BY ity of HFA) 44 00:00: MOUTH [place] mcg/actuati TWICE Medical on inhaler DAILY. USE Bra nch WITH SPACER, WASH MOUTH AFTER USE OXcarbazepi 2018-0 Yes 900mg Take 900 U nivers ne 600 mg 5-16 mg by ity of tablet 00:00: mouth. [place] Medical Branch OXcarbazepi 2018-0 Yes 900mg Take 900 U nivers ne 600 mg 5-16 mg by ity of tablet 00:00: mouth. [place] Medical Branch OXcarbazepi 2017-0 2- No 900mg Take 900 Univers ne 600 mg 5-16 07-28 mg by ity of tablet 00:00: 00:00 mouth. [place] 00 :00 Medical Branch cetirizine 2018-0 Yes TAKE 1 Unive rs 10 mg 5-03 TABLET BY ity of tablet 00:00: MOUTH [place] EVERY DAY Medical Branch levalbutero 2017-0 Yes USE 1 Unive rs l 0.63 mg/3 5-03 VIAL(3 ML) it y of mL 00:00: VIA [place] nebulizer 00 NEBULIZER Medic al solution EVERY 4 Branch HOURS NEEDED FOR WHEEZING cetirizine 2017-0 Yes TAKE 1 Unive rs 10 mg 5-03 TABLET BY ity of tablet 00:00: MOUTH [place] EVERY DAY Medical Branch levalbutero 2017-0 Yes USE 1 Unive rs l 0.63 mg/3 5-03 VIAL(3 ML) it y of mL 00:00: VIA [place] nebulizer 00 NEBULIZER Medic al solution EVERY 4 Branch HOURS NEEDED FOR WHEEZING cetirizine 0 Yes TAKE 1 Unive rs 10 mg 5-03 TABLET BY ity of tablet 00:00: MOUTH [place] EVERY DAY Medical Branch levalbutero 2017-0 Yes USE 1 Unive rs l 0.63 mg/3 5-03 VIAL(3 ML) it y of mL 00:00: VIA [place] nebulizer 00 NEBULIZER Medic al solution EVERY 4 Branch HOURS NEEDED FOR WHEEZING Diazepam 2015- Yes Please set Uni vers 12.5-15-17. 9-01 dial at ity o f 5-20 mg 00:00: 17.5mg. [place] rectal gel 00 Administer Med ical [place] as Branch needed for seizures lasting more than 3 minutes Diazepam Yes Please set Uni vers 12.5-15-17. 9 dial at ity o f 5-20 mg 00:00: 17.5mg. [place] rectal gel 00 Administer Med ical [place] as Branch needed for seizures lasting more than 3 minutes Diazepam Yes Please set Uni vers 12.5-15- 9 dial at ity o f 5-20 mg 00:00: 17.5mg. [place] rectal gel 00 Administer Med ical [place] as Branch needed for seizures lasting more than 3 minutes simethicone Yes 80mg Take 80 mg Univers 80 mg 5-25 by mouth. ity of chewable 00:00: [place] tablet 00 [facility] simethicone Yes 80mg Take 80 mg Univers 80 mg 5-25 by mouth. ity of chewable 00:00: [place] tablet [facility] simethicone Yes 80mg Take 80 mg Univers 80 mg 5-25 by mouth. ity of chewable 00:00: [place] tablet 00 [facility] Gas-X Gas-X Yes Chemo 2 tablet Common [facility] Fiber Fiber Yes Chemo 2 tsp [place] [facility] Diastat Diastat Yes Chemo 17.5mg Commo n AcuDial AcuDial [facility] Oxcarbazepi Oxcarbazepi Yes Chemo 1.5 tablet Common ne ne [facility] Fluticasone Fluticasone Yes Chemo 1 spray in Common Propionate Propionate Gray each Sp shashank nostril [facility] Fluoxetine Fluoxetine Yes Chemo 1 capsule Common HCl HCl [facility] Trazodone Trazodone Yes Chemo 0.5 to 1 Common HCl HCl Gray tablet at Spirit bedtime [facility] Sennosides- Sennosides- Yes Chemo 1 tablet Common Docusate Docusate Gray Spirit Sodium Sodium [facility] Levalbutero Levalbutero Yes Chemo 3 ml Common l HCl l HCl [facility] Montelukast Montelukast Yes Chemo 1 tablet Common Sodium Sodium Gray [facility] Flovent HFA Flovent HFA Yes Chemo 2 puffs Common Gray [facility] Risperidone Risperidone Yes Chemo 0.5 tablet Common Gray [facility] Calcium Calcium Yes Chemo 2 tablets Co mmon Citrate + Citrate + Gray Spir it D3 D3 [facility] Fluoxetine Fluoxetine Yes Chemo 1 capsule Common HCl HCl [facility] Probiotic Probiotic Yes Chemo 1 capsule Common Gray [facility] Emergen-C Emergen-C Yes Chemo as Com mon Immune Immune Gray directed [facility] Cetirizine Cetirizine Yes Chemo 1 tablet Common HCl HCl [facility] Magnesium Magnesium Yes Chemo 1 tablet Common Gray with a [facility] meal [facility] MiraLax MiraLax Yes Chemo 17 gm Common [facility] Acetaminoph Acetaminoph Yes Chemo 1 tablet Common en en Gray as needed [facility] Vital Signs Vital Name Observation Time Observation Value Comments Source Systolic blood 2021-11-13 16:34:00 120 mm[Hg] [facility] Diastolic blood 2021-11-13 16:34:00 76 mm[Hg] [facility] Body height 2021-11-13 16:34:00 172.7 cm [facility] Body weight 2021-11-13 16:34:00 87.091 kg [facility] BMI 2021-11-13 16:34:00 29.19 kg/m2 [facility] HEIGHT 2021-08-22 12:38:00 170.2 cm WEIGHT 2021-08-22 [...] kg Body temperature 2021-08-22 19:30:00 36.28 Lillie [facility] Systolic blood 2021-08-22 19:25:00 117 mm[Hg] [facility] Diastolic blood 2021-08-22 19:25:00 66 mm[Hg] [facility] Heart rate 2021-08-22 19:25:00 119 /min [facility] Respiratory rate 2021-08-22 19:25:00 11 /min [facility] Oxygen saturation in 2021-08-22 19:25:00 90 /min [facility] Arterial blood by Medical Ce nter Pulse oximetry Body height 2021-08-22 12:38:00 170.2 cm [facility] Body weight 2021-08-22 12:38:00 83.4 kg [facility] BMI 2021-08-22 12:38:00 28.79 kg/m2 [facility] Procedures Procedure Date / Time Performed Performing Clinician Sourc e SCALING AND ROOT 2021-08-22 15:22:00 Stefany Iverson [facility] PLANING, PERIODONTAL Medical [address] ter POCT-GLUCOSE METER 2021-08-22 12:29:00 Stefany Iverson I [facility] Plan of Care Planned Activity Planned Date Details Comments Source Future Scheduled 2022-02-[address] [facility] Test 00:00:00 (#1) [code = [facility] INFLUENZA VACCINE (#1)] Future Scheduled 2022-02-[address] [facility] Test 00:00:00 (#1) [code = [facility] INFLUENZA VACCINE (#1)] Future Scheduled 2017 DTAP/TDAP/TD [facility] s Test 00:00:00 VACCINES (3 - Tdap) Medical Center [code = DTAP/TDAP/TD VACCINES (3 - Tdap)] Future Scheduled 2017 DTAP/TDAP/TD [facility] Test 00:00:00 VACCINES (3 - Tdap) Medical Center [code = DTAP/TDAP/TD VACCINES (3 - Tdap)] Future Scheduled [address] [facility] Test 00:00:00 SCREENING [code = Medical Ce nter HEPATITIS C SCREENING] Future Scheduled [address] [facility] Test 00:00:00 SCREENING [code = Medical Ce nter HEPATITIS C SCREENING] Future Scheduled 1999-01-08 COVID-[address] [facility] Test 00:00:00 (#1) [code = [facility] COVID-19 VACCINE (#1)] Future Scheduled 1999-01-08 COVID-[address] [facility] Test 00:00:00 (#1) [code = [facility] COVID-19 VACCINE (#1)] Encounters Start End Encounter Admission Attending Care Care Encounter Source Date/Time Date/Time Type Type Clinicians Facility Department ID 2021-08-16 Outpatient Gray, STLMLC [facility] [id number] Common 13:56:01 Chemo [facility] 2021-07-25 [facility] [id number] Common 14:09:04 Chemo [id number] [facility] 2021-07-25 Outpatient Gray, STLC [facility] [id number] Common 13:33:54 Chemo [id number] [facility] 2021-07-25 Outpatient Gray, STLC [facility] [id number] Common 13:05:58 Chemo [id number] [facility] 2021-07-25 Outpatient Gray, STLC ST[facility] [id number] Common 11:51:52 Chemo [id number] [facility] 2021-07-25 [facility] [id number] Common 11:51:13 Chemo [id number] [facility] 2021-07-25 Outpatient Gray, STLC [facility] [id number] Common 11:50:41 Chemo [id number] [facility] 2021-07-25 Outpatient Gray, STLC [facility] [id number] Common 11:43:21 Chemo [id number] [facility] 2021-07-25 Outpatient Gray, STLMLC [facility] [id number] Common 11:19:05 Chemo [id number] [facility] 2022-02-12 2022-02-12 ambulatory [facility] [id number] Common 00:00:00 00:00:00 [facility] 2022-01-24 2022-01-[address] [facility] [id number] Univers 00:00:00 00:00:00 [facility] [id number] ity of [place] [id number] Alexei as MAYDA?BLEA [phone] [address] OFFICE BUILDING 2021-11-13 2021-11-[address] [facility] [id number] Univers 11:20:00 11:56:54 Visit [facility] [id number] ity of [place] [id number] Alexei as MAYDA?BLEA [id number] [address] OFFICE BUILDING 2021-08-31 2021-08-[address] [facility] [id number] [facility] [facility] 2021-08-31 2021-08-[address] [facility] [id number] [facility] 00:[facility]:[address] [facility] 2021-08-22 2021-08-22 Outpatient [facility] [id number] [facility] 11:19:00 23:59:00 [place] 2021-08-22 2021-08-22 Outpatient SUNIL IVERSON [facility] [id number] [facility] 11:19:00 20:45:00 STEFANY 2021-08-22 2021-08-22 [facility] [address] [facility] [id number] 11:19:00 20:45:00 Encounter Stefany [facility] 2021-08-22 2021-08-22 [facility] [id number] 11:19:00 20:45:00 Encounter Stefany Hill [facility] 2021-08-22 2021-08-[address] [facility] [id number] [facility] [facility] 15:10:00 17:41:00 Event [facility] 2021-08-22 2021-08-22 Anesthesia Leroy Oneill Rogelio [facility] [id number] 15:10[facility]00 17:41[facility]00 [facility] 2021-08-22 Surgery Kishor, [facility] [id number] 13:33:00 15:07:00 [facility] 2021-08-22 2021-08-22 Surgery Kishor, [facility] [id number] 13:33:00 15:07:00 [facility] 2021-08-22 2021-08-22 Orders Kishor, [facility] [id number] 00:[facility]:00 00:00:[address] [facility] 2021-08-22 2021-08-22 Orders Iverson, [facility] [id number] [facility] 00[facility]00[facility]00 [facility] 2021-08-22 Orders Iverson, [facility] [id number] 00:[facility]00 00:00:[address] [facility] 2021-08-22 2021-08-22 Orders Iverson, [facility] [id number] 00:[facility]00 00[facility]00[facility]00 [facility] 2021-08-[address] [facility] [id number] 00:[facility] 00:00:[address] [facility] 2021-08-22 2021-08-[address] [facility] [id number] 00:[facility]00 00:00:[address] [facility] 2021-08-22 2021-08-[address] [facility] [id number] 00:[facility]00 00:00:[address] [facility] 2021-08-22 2021-08-[address] [facility] [id number] 00:00[facility]00 00:00:[address] [facility] 2021-08-20 2021-08-20 Outpatient [facility] [id number] [facility] 16:58:39 23:59:00 2021-08-20 2021-08-20 [facility] [id number] 14:55:00 23:59:00 [facility] 2021-08-20 2021-08-20 [facility] [id number] 14:55:00 23:59:[address] [facility] 2021-08-20 2021-08-20 Travel [facility] [id number] [facility]00 00:00:00 [facility] 2021-08-20 2021-08-20 Travel [facility] [id number] [facility] 00:[facility]00 00:00:00 [facility] 2021-08-17 2021-08-17 ambulatory [facility] [id number] Common 00:00:00 00:00:00 Spirit - [facility]ON[facility] 2021-08-08 2021-08-[address] [facility] [id number] 00:00:00 00:00:[address] [facility] 2021-08-08 2021-08-[address] [facility] [id number] 00:00:00 00:00:00 Only Stefany Hill [facility] 2021-08-08 2021-08-08 ambulatory STLMLC STLMLC [id number] Common 00:00:00 00:00:00 [facility] 2021-05-03 2021-05-03 ambulatory STLMLC STLMLC [id number] Common 00:00:00 00:00:00 [facility] 2021-01-30 2021-01-30 Outpatient STLMLC STLMLC [id number] Common 00:00:00 00:00:00 [facility] 2020-10-24 2020-10-24 Outpatient STLMLC STLMLC [id number] Common 00:00:00 00:00:00 [facility] 2020-08-08 2020-08-08 Outpatient STLMLC STLMLC [id number] Common 00:00:00 00:00:00 [facility] 2020-04-04 2020-04-04 Outpatient STLMLC STLMLC [id number] Common 00:00:00 00:00:00 [facility] 2020-03-02 2020-03-02 Out[facility] [id number] Common 14:50:00 14:50:00 [place] [address] [facility] 2019-12-15 2019-12-15 Outpatient [facility] [id number] Common 15:29:00 15:29:00 [place] [address] [facility] 2019-11-30 2019-11-30 [facility] [id number] Common 14:00:00 14:00:00 [place] [address] [facility] 2019-10-19 2019-10-19 Outpatient [facility] [id number] Common 13:30:00 13:30:00 [place] [address] [facility] Results Test Description Test Time Test Comments Results Result Comments Source POC-Glucose meter 2021-08-22 12:44:17 Test Item Value Reference Range Interpretation Comme nts POC-Glucose Meter (test code = 77 mg/dL 70-110 : TESTED AT [facility] [address] [facility] 1538) [facility], 770 30: Material Flow Analyst/Techni mitchell ID = [id number] for RICHI GARCIA Lab Interpretation (test code = Normal 71442-3) [facility]-Glucose [id number] 12:44:17 Test Item Value Reference Range Interpretation Comments POC-Glucose Meter (test 77 mg/dL 70-110 : TE STED AT [facility] code = 1538) [address] [facility], 770 30: Material Flow Analyst/Techni mitchell ID = [id number] for RICHI GARCIA Lab Interpretation (test Normal code = 56052-6) [facility]-GLUCOSE [id number] 12:44:17 Test Item Value Reference Range Interpretation Comments POC-GLUCOSE METER 77 mg/dL 70-110 : TESTED A T [facility] [address] (BEAKER) (test code = [place] [facility], 1538) [address]: Material Flow Analyst/Techni mitchell ID = [id number] for RICHI SOTELO
--- NOTE | 2022-03-21 22:16 | RAD REPORT ---
EXAM DESCRIPTION: RAD - Hip Right 2 View - 03/21/2022 9:24 pm CLINICAL HISTORY: PAIN COMPARISON: No comparisons FINDINGS: AP and frog-leg views of the right hip were obtained. There is no fracture or dislocation. No AVN or focal head abnormality. No acute or destructive bony p rocess seen. IMPRESSION: Negative right hip examination for acute or significant findings.
--- NOTE | 2022-03-21 22:17 | RAD REPORT ---
EXAM DESCRIPTION: US - Extremity Venous Uni Ltd - 03/21/2022 9:38 pm CLINICAL HISTORY: PAIN COMPARISON: None. TECHNIQUE: Real-time sonographic evaluation of the right lower extremity deep venous systems was per formed. FINDINGS: Normal compressibility, flow augmentation, phasic flow and spontaneous flow are identified in the right lower extremity common femoral, superficial femoral, popliteal and posterior tibial vei ns. No intraluminal filling defects seen. IMPRESSION: No DVT in the right lower extremity.
--- NOTE | 2022-03-21 22:20 | RAD REPORT ---
EXAM DESCRIPTION: RAD - Knee Right 3 View - 03/21/2022 9:24 pm CLINICAL HISTORY: PAIN COMPARISON: Knee Right 3 View dated 12/28/2017 FINDINGS: No fracture, dislocation or periosteal reaction.No joint effusion seen. Patella is normall y positioned. No joint space narrowing. No foreign body in soft tissues. Serpiginous densities are se en in the subcutaneous fatty tissues of the knee and proximal leg have the appearance of varicosities . IMPRESSION: No acute right knee bone or joint finding. Clinical concerns for internal derangement or occult bony injury could be further assessed with MR im aging.
--- NOTE | 2022-03-21 22:21 | RAD REPORT ---
EXAM DESCRIPTION: RAD - Ankle Right 3 View - 03/21/2022 9:24 pm CLINICAL HISTORY: PAIN COMPARISON: No comparisons FINDINGS: No fracture, dislocation or periosteal reaction. No joint effusion seen. No joint space na rrowing. Soft tissues around the ankle joint are prominent with the baseline unknown. Serpiginous den sities in the soft tissues have the appearance varicosities. Pes planus configuration is seen. IMPRESSION: No acute right ankle bone or joint finding.
--- NOTE | 2022-03-21 23:02 | ER ---
Nurse's Notes [facility] Name: Jeff Dawkins Age: 21 yrs Sex: Male : 2000 Arrival Date: 03/21/2022 Time: 20:09 Bed DIS5 Private MD: Diagnosis: Pain in right leg Presentation: 03/21 20:32 Chief complaint: Parent and/or Guardian states: He is having a lot of pain and not bm7 walking well on his right side since Friday. Coronavirus screen: At this time, the client does not indicate any symptoms associated with coronavirus-19. Ebola Screen: No symptoms or risks identified at this time. Initial Sepsis Screen: Does the patient meet any 2 criteria? No. Patient's initial sepsis screen is negative. Does the patient have a suspected source of infection? No. Patient's initial sepsis screen is negative. Risk Assessment: Do you want to hurt yourself or someone else? Patient reports no desire to harm self or others. Onset of symptoms is unknown. 20:32 Method Of Arrival: Wheelchair bm7 20:32 Acuity: JALEEL 3 bm7 Triage Assessment: 20:32 General: Appears in no apparent distress. comfortable, Behavior is calm, cooperative, bm7 appropriate for age. Pain: Unable to use pain scale. Does not appear to understand pain scale. EENT: No deficits noted. No signs and/or symptoms were reported regarding the EENT system. Neuro: No deficits noted. Cardiovascular: No deficits noted. Respiratory: No deficits noted. GI: No deficits noted. No signs and/or symptoms were reported involving the gastrointestinal system. : No deficits noted. No signs and/or symptoms were reported regarding the genitourinary system. Derm: No deficits noted. No signs and/or symptoms reported regarding the dermatologic system. Musculoskeletal: Parent/caregiver report the patient having weakness in right leg pain in right leg. 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 - Social history:: Smoking status: Patient denies any tobacco usage or history of. Screenin:39 Abuse screen: Denies threats or abuse. Denies injuries from another. Nutritional tw5 screening: No deficits noted. Tuberculosis screening: No symptoms or risk factors identified. Fall Risk None identified. Vital Signs: 20:32 BP 108 / 57; Pulse 88; Resp 16; Temp 98.5(TE); Pulse Ox 94% on R/A; Weight 83.91 kg bm7 (R); Height 5 ft. 9 in. (175.26 cm); 20:32 Body Mass Index 27.32 (83.91 kg, 175.26 cm) bm7 ED Course: 20:09 Patient arrived in ED. ja2 20:12 Juice Riggs DO is Attending Physician. ms3 20:32 Arm band placed on right wrist. bm7 20:34 Triage completed. bm7 21:24 Hip Right 2 View XRAY In Process Unspecified. EDMS 21:24 Knee Right 3 View XRAY In Process Unspecified. EDMS 21:24 Ankle Right 3 View XRAY In Process Unspecified. EDMS 21:40 US Extremity Venous Unilateral Ltd In Process Unspecified. EDMS 22:39 No provider procedures requiring assistance completed. tw5 Administered Medications: No medications were administered Medication: 22:39 VIS not applicable for this client. tw5 Outcome: 23:01 Discharge ordered by . ms3 23:16 Patient left the ED. sb4 Signatures: Dispatcher [employer] EDMS Juice Riggs DO DO ms3 Celi Mckinney, RN RN bm7 Gila Perdomo ja2 Anette Gaines tw5 Ni Sánchez PA-C PACathy sb4 Corrections: (The following items were deleted from the chart) 22:41 22:39 Patient has correct armband on for positive identification. Placed in gown. tw5 tw5 :41 22:39 General: Appears in no apparent distress. Behavior is calm, cooperative, tw5 appropriate for age, tw5 22:41 22:39 Respiratory: No deficits noted. tw5 tw5 :41 22:39 Cardiovascular: No deficits noted. tw5 tw5 : 22:39 GI: No deficits noted. tw5 tw5 : 22:39 Derm: tw5 tw5 : 22:39 Musculoskeletal: Swelling present in left lateral ankle and left medial ankle tw5 tw5 : 22:39 Krishan wrap to left ankle tw5 tw5 :42 22:39 Patient did not have IV access during this emergency room visit. tw5 tw5 : 22:39 Discharged to home with family, tw5 tw5 : 22:39 Condition: stable tw5 tw5 : 22:39 Discharge instructions given to patient, Instructed on discharge instructions, tw5 follow up and referral plans. medication usage, crutch walking, Demonstrated understanding of instructions, follow-up care, medications, crutch walking, Prescriptions given X 1, tw5
--- NOTE | 2022-03-21 23:02 | EDPHYS ---
Physician Documentation [facility] Name: Jeff Dawkins Age: 21 yrs Sex: Male : 2000 Arrival Date: 03/21/2022 Time: 20:09 Bed DIS5 Private MD: ED Physician Juice Riggs HPI: 03/21 23:20 This 21 yrs old Male presents to ER via Wheelchair with complaints of Leg Swelling, ms3 Knee Pain. 23:20 21-year-old male with past medical history of bronchial pulmonary dysplasia, cerebral ms3 palsy, heart valve prolapse presents with his mother for limping on his right leg. Patient is nonverbal so HPI is limited. Patient's mother states that she brought patient to the emergency department on Friday as she thought his left leg was causing him problems to walk. Patient's mother states symptoms began on Friday.. 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 - Social history:: Smoking status: Patient denies any tobacco usage or history of. ROS: 23:20 Unable to obtain ROS due to Nonverbal. ms3 Exam: 23:20 Constitutional: This is a well developed, well nourished patient who is awake, alert, ms3 and in no acute distress. Head/Face: Normocephalic, atraumatic. Neck: Trachea midline, no cervical lymphadenopathy. Supple, full range of motion without nuchal rigidity, or vertebral point tenderness. No Meningismus. Chest/axilla: Normal chest wall appearance and motion. Nontender with no deformity. Cardiovascular: Regular rate and rhythm with a normal S1 and S2. No gallops, murmurs, or rubs. Normal PMI, no JVD. No pulse deficits. Respiratory: Lungs have equal breath sounds bilaterally, clear to auscultation and percussion. No rales, rhonchi or wheezes noted. No increased work of breathing, no retractions or nasal flaring. Abdomen/GI: Soft, non-tender, with normal bowel sounds. No distension or tympany. No guarding or rebound. No evidence of tenderness throughout. Skin: Warm, dry with normal turgor. Normal color with no rashes, no lesions, and no evidence of cellulitis. MS/ Extremity: Pulses equal, no cyanosis. Neurovascular intact. Full, normal range of motion. Vital Signs: 20:32 BP 108 / 57; Pulse 88; Resp 16; Temp 98.5(TE); Pulse Ox 94% on R/A; Weight 83.91 kg bm7 (R); Height 5 ft. 9 in. (175.26 cm); 20:32 Body Mass Index 27.32 (83.91 kg, 175.26 cm) bm7 MDM: 20:30 Patient medically screened. ms3 23:20 Data reviewed: vital signs, nurses notes, radiologic studies. ms3 03/21 20:32 Order name: Hip Right 2 View XRAY; Complete Time: 22:26 bm7 03/21 20:32 Order name: Knee Right 3 View XRAY; Complete Time: 22:26 bm7 03/21 20:32 Order name: Ankle Right 3 View XRAY; Complete Time: 22:26 bm7 03/21 20:36 Order name: US Extremity Venous Unilateral Ltd; Complete Time: 22:26 bm7 Administered Medications: No medications were administered Disposition Summary: 03/21/22 23:01 Discharge Ordered Location: Home ms3 Condition: Stable ms3 Diagnosis - Pain in right leg ms3 Followup: ms3 - With: Private Physician - When: 2 - 3 days - Reason: Recheck today's complaints Discharge Instructions: - Discharge Summary Sheet ms3 - Musculoskeletal Pain ms3 Forms: - Medication Reconciliation Form ms3 - Thank You Letter ms3 - Antibiotic Education ms3 - Prescription Opioid Use ms3 Signatures: Dispatcher [employer] Aubrie Olvera FNP-C SERVICE TRANSFORMER REPAIR SUPERVISOR-Juice Dominique DO DO ms3 Celi Mckinney, RN RN bm7
[2022-03-23 10:32] VITALS: BP 108/57; TEMP 98.5; O2SAT 94
== END 2022-03-21 23:16 | disposition home or self-care (01) ==
LOC: ER 20:06
DX: M79.604 Pain in right leg (principal); G80.9 Cerebral palsy, unspecified
CPT/HCPCS: 93971; 99282

== ENCOUNTER → 2023-09-08 | Emergency (ER) | payer OTHER ==
[~2023-09-08] MED LIST: ACETAMINOPHEN 500 MG TAB ONE; ALBUTEROL 2.5 MG/3 ML NEB SOL ONE; AZITHROMYCIN 500 MG INJ IVPB ONE; CEFTRIAXONE 1000 MG/VIAL ONE; IBUPROFEN 400 MG TAB ONE; IPRATROPIUM BROM 0.5MG/2.5ML ONE; NA CHLORIDE 0.9% 1,000 ML ONE; NA CHLORIDE 0.9% 250 ML ONE; VANCOMYCIN 1 GM/VIAL ONE
--- NOTE | 2023-09-08 13:14 | RAD REPORT ---
EXAM DESCRIPTION: [place] Single View09/08/2023 1:03 pm CLINICAL HISTORY: sob COMPARISON: 2018 FINDINGS: Marked enlargement of the cardiac silhouette Mild bilateral pulmonary opacities Small bilateral pleural effusions IMPRESSION: Marked enlargement of the cardiac silhouette likely combination of cardiomegaly and zan cardial effusion Mild bilateral pulmonary opacities probably mild pulmonary edema
[2023-09-08 13:38] LABS: SARS-CoV-2 Antigen Rapid Res Negative (Negative)
[2023-09-08 14:18] LABS: Absolute Lymphocytes (CBC) 0.6 K/uL (0.7-4.9); Basophils % 0.8 % (0-1.3); Hematocrit 35.2 % (39.6-49.0); Hemoglobin 11.9 g/dL (13.6-17.9); Lymphocytes % 16.9 % (15.3-44.8); MCV 92.9 fL (80-100); MPV 9.8 fL (7.6-11.3); Platelets 104 thou/uL (152-406); RBC Red Blood Cell Count 3.79 M/uL (4.33-5.43)
[2023-09-08 18:28] LABS: Protime INR 1.34
[2023-09-08 18:38] LABS: Albumin 3.1 g/dL (3.4-5.0); Anion Gap 6.5 mEq/L (5.0-15.0); Bilirubin Total 0.3 mg/dL (0.2-1.0); Potassium 3.5 mEq/L (3.5-5.1); Protein, Total 6.1 g/dL (6.4-8.2)
--- NOTE | 2023-09-08 19:11 | RAD REPORT ---
EXAM DESCRIPTION: CT - Thorax W/ Con - 09/08/2023 6:55 pm CLINICAL HISTORY: Shortness of breath COMPARISON: None TECHNIQUE: Computed axial tomography of the chest was obtained. 100 cc Isovue 300 was administered i ntravenously. All CT scans are performed using dose optimization technique as appropriate and may include automated exposure control or mA/KV adjustment according to patient size. FINDINGS: The heart is moderately enlarged. Large pericardial effusion is present. Small right pleural effusion Mild right pulmonary opacities. Moderate left pulmonary opacities Small amount of ascites. Small hepatic cyst IMPRESSION: Large pericardial effusion Mild right and moderate left pulmonary opacities could represent pneumonia or pulmonary edema
--- NOTE | 2023-09-08 19:14 | ER ---
Nurse's Notes [facility] Name: Jeff Dawkins Age: 23 yrs Sex: Male : 2000 Arrival Date: 09/08/2023 Time: 12:33 Bed 6 Private MD: Diagnosis: Pericardial Effusion;Respiratory failure, unspecified with hypoxia;Bilateral pneumonia, hypoxemia with hypercarbia Presentation: 09/07 12:41 Chief complaint: Parent and/or Guardian states: He has been having some congestion and kd3 cough and he has had a fever since Friday. His DISABILITY INSURANCE CLAIM EXAMINER gave him some antibiotics and we started that yesterday. We gave him some Tylenol this morning. Ebola Screen: No symptoms or risks identified at this time. Initial Sepsis Screen: Does the patient meet any 2 criteria? HR > 90 bpm. No. Patient's initial sepsis screen is negative. Does the patient have a suspected source of infection? No. Patient's initial sepsis screen is negative. Risk Assessment: Do you want to hurt yourself or someone else? Patient reports no desire to harm self or others. Onset of symptoms was September 08, 2023. 12:41 Method Of Arrival: Wheelchair kd3 12:41 Acuity: JALEEL 3 kd3 12:44 Coronavirus screen: Vaccine status: Patient reports receiving the 2nd dose of the covid kd3 vaccine. Triage Assessment: 12:44 General: Appears in no apparent distress. Behavior is calm, cooperative. Pain: Denies kd3 pain. Historical: - Allergies: 12:44 Tegretol; kd3 12:44 Lorazepam; kd3 12:44 Carbamazepine; kd3 12:44 Ativan; kd3 - PMHx: 12:44 Bonchial Pulmonary dysplasia; Cerebral Palsy; Cerebral Palsy; Heart Valve problem; kd3 Heart Valve problem; Non-verbal; scoliosis; Seizures; - PSHx: 12:44 Dental surgeries; eye surgery; G-tube; G-tube; hernia repair; hernia repair; knee kd3 surgery; Tonsillectomy; - Immunization history:: Adult Immunizations up to date. - Social history:: Smoking status: Patient denies any tobacco usage or history of. Screenin:32 [facility] ED Fall Risk Assessment (Adult) History of falling in the last 3 months, ld1 including since admission No falls in past 3 months (0 pts). Abuse screen: Denies threats or abuse. Denies injuries from another. Nutritional screening: No deficits noted. Tuberculosis screening: No symptoms or risk factors identified. Assessment: 14:32 General: Appears in no apparent distress. comfortable, Behavior is calm, cooperative, ld1 appropriate for age. Pain: Denies pain. Neuro: Level of Consciousness is awake, alert, Oriented to none. Cardiovascular: Capillary refill < 3 seconds Patient's skin is warm and dry. Rhythm is sinus rhythm. Respiratory: Airway is patent Respiratory effort is even, labored. Respiratory: the patient has mild shortness of breath Parent/caregiver reports the patient having shortness of breath. GI: Abdomen is round non-distended. : No signs and/or symptoms were reported regarding the genitourinary system. EENT: No signs and/or symptoms were reported regarding the EENT system. Derm: No signs and/or symptoms reported regarding the dermatologic system. Musculoskeletal: No signs and/or symptoms reported regarding the musculoskeletal system. 14:33 Reassessment: PHLEBOTOMY CONTACTED FOR LAB RECOLLECT. bp 16:00 Reassessment: Notified phlebotomy of need for redraw labs. Anitta at bedside, unable to ld1 collect blood. States "I am going to call my coworker to help me get blood.". 16:28 Reassessment: Patient appears in no apparent distress at this time. No changes from ld1 previously documented assessment. Pt laying in bed with mother at bedside. 17:24 Reassessment: PHLEBOTOMY UNABLE TO OBTAIN BLOOD SPECIMEN. bp 18:14 Reassessment: Patient appears in no apparent distress at this time. No changes from ld1 previously documented assessment. Patient and/or family updated on plan of care and expected duration. Pain level reassessed. 18:16 Reassessment: U/S GUIDED MIDLINE PLACED, 20 GA 8 CM RUE. bp 20:00 General: Appears comfortable, Behavior is restless. Pain: Unable to use pain scale. ha1 FLACC scale score is 0 out of 10. Neuro: Level of Consciousness is awake, alert, Oriented to none. Cardiovascular: Capillary refill < 3 seconds Patient's skin is warm and dry. Respiratory: Airway is patent Respiratory effort is even, unlabored, Respiratory pattern is regular, symmetrical. GI: Abdomen is round non-distended. : No signs and/or symptoms were reported regarding the genitourinary system. Derm: No signs and/or symptoms reported regarding the dermatologic system. Skin is pink, warm \\T\\ dry. Musculoskeletal:. 20:00 Reassessment: parents at the bedside. ha1 21:00 Reassessment: Patient and/or family updated on plan of care and expected duration. Pain ha1 level reassessed. 21:00 General: Appears comfortable, Behavior is calm, EYES CLOSED . Respiratory: Airway is ha1 patent Respiratory effort is even, unlabored, Respiratory pattern is regular, symmetrical. 22:00 Reassessment: Patient and/or family updated on plan of care and expected duration. Pain ha1 level reassessed. Respiratory: Airway is patent Respiratory effort is even, unlabored, Respiratory pattern is regular, symmetrical. 23:10 Reassessment: report given to TEJINDER Banda. ha1 09/08 00:10 Reassessment: Patient and/or family updated on plan of care and expected duration. Pain ha1 level reassessed. 00:10 Respiratory: Airway is patent Respiratory effort is even, unlabored, Respiratory ha1 pattern is regular, symmetrical. 01:18 Reassessment: Patient and/or family updated on plan of care and expected duration. Pain ha1 level reassessed. EMS in the room. Vital Signs: 09/07 12:41 BP 111 / 61; Pulse 124; Resp 21; Pulse Ox 83% on R/A; kd3 12:44 Temp 97.2(A); Weight 83.01 kg; kd3 12:44 Height 5 ft. 8 in. ; kd3 12:56 BP 122 / 67; Pulse 116; Resp 18; Pulse Ox 85% on R/A; ld1 13:26 BP 117 / 75; Pulse 104; Pulse Ox 94% ; ec2 14:31 BP 130 / 77; Pulse 89; Resp 18; Pulse Ox 97% on R/A; ld1 16:26 BP 130 / 80; Pulse 71; Resp 18; Pulse Ox 95% on 4 lpm Non-rebreather mask; ld1 18:14 BP 116 / 68; Pulse 67; Resp 18; Pulse Ox 96% on 4 lpm Non-rebreather mask; ld1 19:35 BP 121 / 71; Pulse 71; Resp 20 S; Pulse Ox 94% on 4 lpm Simple Mask; ha1 20:24 BP 127 / 73; Pulse 65; Resp 17 S; Temp 97.7; Pulse Ox 96% on 4 lpm Non-rebreather mask; ha1 22:00 BP 149 / 72; Pulse 97; Resp 20 S; Pulse Ox 94% on 4 lpm Simple Mask; ha1 23:00 BP 143 / 73; Pulse 101; Resp 19 S; Pulse Ox 95% on 4 lpm Simple Mask; ha1 03 00:00 BP 137 / 73; Pulse 95; Resp 17 S; Pulse Ox 95% on 4 lpm Simple Mask; ha1 01:00 BP 121 / 71; Pulse 100; Resp 17 S; Temp 98.2(T); Pulse Ox 96% on 4 lpm Simple Mask; ha1 09/07 16:26 Pt unable to wear nasal cannula. Does not understand and will not keep cannula on face. ld1 ED Course: 12:35 Patient arrived in ED. ec2 12:35 Brandan Escamilla MD is Attending Physician. ec2 12:44 Triage completed. kd3 12:44 Arm band placed on left wrist. kd3 13:05 Chest Single View XRAY In Process Unspecified. EDMS 13:28 SARS RAPID Sent. ld1 13:28 Influenza Screen (a \\T\\ B) Sent. ld1 13:30 No provider procedures requiring assistance completed. Missed attempt(s): 22 gauge in ld1 right hand. 14:01 Satya Mari, RN is Primary Nurse. bp 14:31 Airam Riggs, RN is Primary Nurse. ld1 14:32 Patient has correct armband on for positive identification. Placed in gown. Bed in low ld1 position. Call light in reach. Side rails up X2. analog circuit designer on. Pulse ox on. NIBP on. Door closed. Noise minimized. Warm blanket given. 18:15 Inserted 20 GA 8 CM MIDLINE R CEPHALIC. bp 18:57 CT Chest W/ Con In Process Unspecified. EDMS 20:26 Linen changed. as6 20:32 Attending Physician role handed off by Brandan Escamilla MD sp4 20:32 Demetrius Yap MD is Attending Physician. sp4 21:20 Repositioned patient. Cleaned of incontinence. Linen changed. ha1 22:00 initiated transfer to [facility]. vk 22:10 Door closed. Noise minimized. Lights dimmed. Warm blanket given. Pillow given. ha1 22:32 per marlene at transfer center pt was accepted to Dr. Armstrong to room 2404. vk 23:43 Primary Nurse role handed off by Airam Riggs RN as6 23:45 called ems was not able to transport. vk 03 00:07 called [facility] ambulance initiated transfer will greens picker patient in 1hour and 15 mins. vk 01:21 Patient transferred, IV remains in place. ha1 01:22 Provided Education on: need for transfer . ha1 Administered Medications: 09/07 14:01 Drug: Rocephin IV 1 grams IV at calculated rate once; Given slow IV push per pharmacy bp instructions Route: IV; Rate: calculated rate; Site: right wrist; 14:01 Drug: AZITHromycin IVPB 500 mg IVPB once over 1 hrs; (mix in 250 mL NS) Route: IVPB; bp Infused Over: 1 hrs; Site: right wrist; 14:01 Drug: NS 0.9% IV 1000 ml IV at 1 bolus Per protocol; 1000 mL bolus Route: IV; Rate: 1 bp bolus; Site: right wrist; 20:00 Follow up: Response: No adverse reaction; IV Status: Completed infusion; IV Intake: ha1 1000ml 14:02 Drug: Ibuprofen PO 800 mg PO once Route: PO; bp 22:00 Drug: Albuterol Inhalation 2.5 mg Inhalation once Route: Inhalation; ha1 22:15 Follow up: Response: No adverse reaction; Marked relief of symptoms ha1 22:00 Drug: Ipratropium Inhalation Aerosol 0.5 mg Inhalation once Route: Inhalation; ha1 22:15 Follow up: Response: No adverse reaction; Marked relief of symptoms ha1 22:00 Drug: vancoMYCIN IVPB 1 grams IVPB once over 2 hrs Route: IVPB; Infused Over: 2 hrs; ha1 Site: right antecubital; 23:15 Follow up: Response: No adverse reaction; IV Status: Completed infusion; IV Intake: ha1 250ml 22:10 Drug: Acetaminophen PO 1000 mg PO once Route: PO; ha1 23:00 Follow up: Response: No adverse reaction; Marked relief of symptoms ha1 22:10 Drug: Ibuprofen PO 400 mg PO once Route: PO; ha1 23:00 Follow up: Response: No adverse reaction; Marked relief of symptoms ha1 Medication: 09/08 01:21 VIS not applicable for this client. ha1 Intake: 09/07 20:00 IV: 1000ml; Total: 1000ml. ha1 23:15 IV: 250ml; Total: 1250ml. ha1 Outcome: 19:13 ER care complete, transfer ordered by . ec2 09/08 01:21 Transferred by ground EMS to [facility], Transfer form completed. X-rays ha1 sent w/ patient. Condition: stable Discharge instructions given to family, Instructed on the need for transfer, Demonstrated understanding of instructions, 01:30 Patient left the ED. ha1 Signatures: Dispatcher [employer] EDMS Satya Mari RN RN bp Airam Riggs RN RN ld1 Abdifatah Curiel RN RN as6 Мария Morse RN RN kd3 Ronda Briggs RN RN ha1 Demetrius Yap MD MD sp4 Brandan Escamilla MD MD ec2 Celine Phillips Corrections: (The following items were deleted from the chart) 09/07 12:47 12:41 Chief complaint: Parent and/or Guardian states: He has been having some kd3 congestion and cough. We gave him some Tylenol this morning. kd3 20:40 20:24 BP 127 / 73; Pulse 65bpm; Resp 17bpm; Spontaneous; Pulse Ox 96% RA; ha1 ha1 20:46 20:24 BP 127 / 73; Pulse 65bpm; Resp 17bpm; Spontaneous; Pulse Ox 96% 02 4lpm ha1 Non-rebreather mask; ha1 09/08 00:08 09/07 00:07 called [facility] ambulance initiated transfer will greens picker patient in 1hour and vk 15 mins. vk 09/08 01:41 01:40 Patient left the ED. ha1 ha1 01:53 01:52 Response: No adverse reaction; IV Status: Completed infusion; IV Intake: 250ml ha1ha1
--- NOTE | 2023-09-08 19:14 | EDPHYS ---
Physician Documentation [facility] Name: Jeff Dawkins Age: 23 yrs Sex: Male : 2000 Arrival Date: 09/08/2023 Time: 12:33 Bed 6 Private MD: ED Physician Demetrius Yap HPI: 09/07 12:47 This 23 yrs old Male presents to ER via Wheelchair with complaints of Fever, ec2 Cough, Chest Congestion. 13:05 Patient arrives today for evaluation of URI symptoms symptoms. Patient has been having ec2 symptoms for approximately 1 week. Also having fevers have been treated with Tylenol and ibuprofen. Some congestion and cough as well. Patient with history of cerebral palsy, limited verbal communication.. Historical: - Allergies: 12:44 Tegretol; kd3 12:44 Lorazepam; kd3 12:44 Carbamazepine; kd3 12:44 Ativan; kd3 - PMHx: 12:44 Bonchial Pulmonary dysplasia; Cerebral Palsy; Cerebral Palsy; Heart Valve problem; kd3 Heart Valve problem; Non-verbal; scoliosis; Seizures; - PSHx: 12:44 Dental surgeries; eye surgery; G-tube; G-tube; hernia repair; hernia repair; knee kd3 surgery; Tonsillectomy; - Immunization history:: Adult Immunizations up to date. - Social history:: Smoking status: Patient denies any tobacco usage or history of. ROS: 13:05 Constitutional: as per hpi ec2 Exam: 13:05 Constitutional: GEN: NAD Head: atraumatic Eyes: EOMI Ears: External ears are ec2 normal. CV: Tachycardia LUNGS: no resp scattered rales noted ABD: non-distended SKIN: no evidence of rashes MSK: no evidence of trauma NEURO: moves all extremities equally Vital Signs: 12:41 BP 111 / 61; Pulse 124; Resp 21; Pulse Ox 83% on R/A; kd3 12:44 Temp 97.2(A); Weight 83.01 kg; kd3 12:44 Height 5 ft. 8 in. ; kd3 12:56 BP 122 / 67; Pulse 116; Resp 18; Pulse Ox 85% on R/A; ld1 13:26 BP 117 / 75; Pulse 104; Pulse Ox 94% ; ec2 14:31 BP 130 / 77; Pulse 89; Resp 18; Pulse Ox 97% on R/A; ld1 16:26 BP 130 / 80; Pulse 71; Resp 18; Pulse Ox 95% on 4 lpm Non-rebreather mask; ld1 18:14 BP 116 / 68; Pulse 67; Resp 18; Pulse Ox 96% on 4 lpm Non-rebreather mask; ld1 19:35 BP 121 / 71; Pulse 71; Resp 20 S; Pulse Ox 94% on 4 lpm Simple Mask; ha1 20:24 BP 127 / 73; Pulse 65; Resp 17 S; Temp 97.7; Pulse Ox 96% on 4 lpm Non-rebreather mask; ha1 22:00 BP 149 / 72; Pulse 97; Resp 20 S; Pulse Ox 94% on 4 lpm Simple Mask; ha1 23:00 BP 143 / 73; Pulse 101; Resp 19 S; Pulse Ox 95% on 4 lpm Simple Mask; ha1 03 00:00 BP 137 / 73; Pulse 95; Resp 17 S; Pulse Ox 95% on 4 lpm Simple Mask; ha1 01:00 BP 121 / 71; Pulse 100; Resp 17 S; Temp 98.2(T); Pulse Ox 96% on 4 lpm Simple Mask; ha1 03 16:26 Pt unable to wear nasal cannula. Does not understand and will not keep cannula on face. ld1 MDM: 12:45 Patient medically screened. ec2 13:04 Data reviewed: vital signs. ec2 13:05 ED course: Patient arrives today for URI symptoms. Examination remarkable for ec2 tachycardic individual who is in no acute respiratory distress. Will obtain a septic workup and empirically treat for pulmonary pathology.. 13:06 ED course: EKG obtained, independently reviewed and interpreted by me, shows sinus ec2 tachycardia, rate 116, no acute ST segment elevations, nonconcerning intervals. . 13:28 ED course: Of note patient with known history of pericardial effusion, send chest x-ray ec2 shows pericardial effusion as well as bilateral pulmonary opacities and small pleural effusions. Will obtain CT chest for further elucidation of this. Will defer any more aggressive fluid administration given possible volume overload. . 18:43 ED course: Metabolic profile unremarkable, coagulation profile unremarkable. . ec2 20:40 ED course: EXAM DESCRIPTION: CT - Thorax W/ Con - 09/08/2023 6:55 pm CLINICAL HISTORY: sp4 Shortness of breath COMPARISON: None TECHNIQUE: Computed axial tomography of the chest was obtained. 100 cc Isovue 300 was administered intravenously. All CT scans are performed using dose optimization technique as appropriate and may include automated exposure control or mA/KV adjustment according to patient size. FINDINGS: The heart is moderately enlarged. Large pericardial effusion is present. Small right pleural effusion Mild right pulmonary opacities. Moderate left pulmonary opacities Small amount of ascites. Small hepatic cyst IMPRESSION: Large pericardial effusion Mild right and moderate left pulmonary opacities could represent pneumonia or pulmonary edema . 20:46 ED course: EXAM DESCRIPTION: [place] Single View09/08/2023 1:03 pm CLINICAL HISTORY: sp4 sob COMPARISON: 2019 FINDINGS: Marked enlargement of the cardiac silhouette Mild bilateral pulmonary opacities Small bilateral pleural effusions IMPRESSION: Marked enlargement of the cardiac silhouette likely combination of cardiomegaly and pericardial effusion Mild bilateral pulmonary opacities probably mild pulmonary edema. 21:31 Differential diagnosis: viral Infection, bacterial infection, URI, bronchitis, sp4 pneumonia UTI, gastroenteritis, meningitis. ED course: Patient was accepted by [facility] to ICU, condition on admit is stable. No signs of tamponade. . 22:42 ED course: Accepted to [facility]. [facility] 09/07 12:47 Order name: Blood Culture Adult (2) [facility] 09/07 12:47 Order name: CBC with Diff; Complete Time: 14:41 2 09/07 12:47 Order name: CMP; Complete Time: 18:42 2 09/07 12:47 Order name: Lactate w/ 2H reflex if indic.; Complete Time: 14:41 2 09/07 12:47 Order name: Protime (+inr); Complete Time: 18:42 2 09/07 12:47 Order name: Ptt, Activated; Complete Time: 18:42 2 09/07 13:04 Order name: Influenza Screen (a \T\ B); Complete Time: 14:02 2 09/07 13:04 Order name: SARS RAPID; Complete Time: 13:42 2 09/07 13:28 Order name: BNP; Complete Time: 21:25 [facility] 09/07 20:46 Order name: ABG; Complete Time: 22:05 [facility] 09/07 12:47 Order name: Chest Single View XRAY; Complete Time: 13:24 09/07 13:26 Order name: CT Chest W/ Con; Complete Time: 19:12 09/07 12:47 Order name: EKG; Complete Time: 12:48 09/07 12:47 Order name: Accucheck; Complete Time: 14:02 09/07 12:47 Order name: Cardiac monitoring; Complete Time: 13:28 09/07 12:47 Order name: EKG - Nurse/Tech; Complete Time: 13:10 09/07 12:47 Order name: IV Saline Lock - Large Bore; Complete Time: 14:02 09/07 12:47 Order name: Labs collected and sent; Complete Time: 14:02 09/07 12:47 Order name: O2 Per Protocol; Complete Time: 12:56 09/07 12:47 Order name: O2 Sat Monitoring; Complete Time: 12:56 09/07 12:47 Order name: Vital Signs; Complete Time: 12:56 09/07 14:18 Order name: Labs - recollect needed: recollect green and blue top; Complete Time: 18:15 bd Administered Medications: 14:01 Drug: Rocephin IV 1 grams IV at calculated rate once; Given slow IV push per pharmacy bp instructions Route: IV; Rate: calculated rate; Site: right wrist; 14:01 Drug: AZITHromycin IVPB 500 mg IVPB once over 1 hrs; (mix in 250 mL NS) Route: IVPB; bp Infused Over: 1 hrs; Site: right wrist; 14:01 Drug: NS 0.9% IV 1000 ml IV at 1 bolus Per protocol; 1000 mL bolus Route: IV; Rate: 1 bp bolus; Site: right wrist; 20:00 Follow up: Response: No adverse reaction; IV Status: Completed infusion; IV Intake: ha1 1000ml 14:02 Drug: Ibuprofen PO 800 mg PO once Route: PO; bp 22:00 Drug: Albuterol Inhalation 2.5 mg Inhalation once Route: Inhalation; ha1 22:15 Follow up: Response: No adverse reaction; Marked relief of symptoms ha1 22:00 Drug: Ipratropium Inhalation Aerosol 0.5 mg Inhalation once Route: Inhalation; ha1 22:15 Follow up: Response: No adverse reaction; Marked relief of symptoms ha1 22:00 Drug: vancoMYCIN IVPB 1 grams IVPB once over 2 hrs Route: IVPB; Infused Over: 2 hrs; ha1 Site: right antecubital; 23:15 Follow up: Response: No adverse reaction; IV Status: Completed infusion; IV Intake: ha1 250ml 22:10 Drug: Acetaminophen PO 1000 mg PO once Route: PO; ha1 23:00 Follow up: Response: No adverse reaction; Marked relief of symptoms ha1 22:10 Drug: Ibuprofen PO 400 mg PO once Route: PO; ha1 23:00 Follow up: Response: No adverse reaction; Marked relief of symptoms ha1 Disposition Summary: 09/08/23 19:13 Transfer Ordered Notes: Reason: Higher level of care ec2 Condition: Stable ec2 Problem: new ec2 Symptoms: have improved ec2 Transfer Location: [facility](09/08/23 22:43) sp4 Accepting Physician: transferring MD (09/09/23 01:40) ha1 Diagnosis - Pericardial Effusion ec2 - Respiratory failure, unspecified with hypoxia ec2 - Bilateral pneumonia, hypoxemia with hypercarbia sp4 Forms: - Medication Reconciliation Form ec2 - SBAR form ec2 Signatures: Dispatcher [employer] EDMS Porsha Tracy Brian, RN RN bp Doucette, Kyli, RN RN kd3 Ronda Briggs RN RN ha1 Potepalov, Sergey, MD MD sp4 Brandan Escamilla MD MD ec2 Corrections: (The following items were deleted from the chart) 13:05 13:04 Patient medically screened. ec2 ec2 21:31 19:13 transferring doc ec2 sp4 22:42 22:42 ED course: EXAM DESCRIPTION: CT - Abdomen Pelvis W Contrast - 09/08/2023 9:59 pm sp4 CLINICAL HISTORY: Abdominal pain COMPARISON: July 2023 TECHNIQUE: Computed axial tomography of the abdomen pelvis was obtained. 100 cc Isovue-300 was administered intravenously. Oral contrast was not requested which limits evaluation of bowel and appendix All CT scans are performed using dose optimization technique as appropriate and may include automated exposure control or mA/KV adjustment according to patient size. FINDINGS: The liver, spleen, pancreas, adrenal and kidneys appear unremarkable. There is no evidence of diverticulitis. A moderate amount of stool within the colon Normal appendix. Hysterectomy. No adnexal mass IMPRESSION: Moderate amount stool within the colon. sp4 : 19:13 Other Acute Care Facility ec2 sp4 21:31 transferring sp4 sp4 09/08 01:40 09/07 22:43 transferring sp4 ha1
[2023-09-08 21:33] LABS: Arterial Blood Carboxyhemoglob 1.2 % (0-1.5); Blood Gas THB 11.9 g/dl (12-18); Blood O2 Saturation 92.5 % (92-98.5)
[2023-09-08] MEDS: LEVALBUTEROL 1.25 MG/3 ML NEB ONE (21:55)
[2023-09-09 02:17] VITALS: BP 127/73; TEMP 97.7; O2SAT 96
== END ==
LOC: ER 12:33
DX: I31.39 Other pericardial effusion (noninflammatory) (principal); J96.91 Respiratory failure, unspecified with hypoxia; J18.9 Pneumonia, unspecified organism; G80.9 Cerebral palsy, unspecified; Z11.52 Encounter for screening for COVID-19; Z88.8 Allergy status to other drugs, medicaments and biological substances
CPT/HCPCS: 87040 ×2; 85025; 36415; 85610; 83605; 85730; 80053; 83880; 87804 ×2; 71260; 71045; 94640; 82805; 87811; 36600; Q9967; J7614; J7613; J7644; J7050 ×2; J7030; J0696

== ENCOUNTER 2024-02-12 12:24 | Emergency (ER) | payer OTHER ==
--- NOTE | 2024-02-12 13:05 | RAD REPORT ---
EXAM DESCRIPTION: RAD - Chest Single View - 02/12/2024 12:56 pm CLINICAL HISTORY: PALPITATIONS Chest pain. COMPARISON: Chest Single View dated 09/08/2023; Abdomen 1 View (KUB) dated 07/01/2019; Chest Pa And Lat (2 Views) dated 03/08/2019; ABDOMEN 1 VIEW KUB dated 01/19/2013; Thorax W/ Con dated 09/08/2023 FINDINGS: Portable technique limits examination quality. Mild pulmonary edema. Small bilateral pleural effusions likely present. Marked cardiomegaly suspected . No displaced fractures. IMPRESSION: Mild moderate CHF is likely present. There is marked cardiomegaly and probable pericardi al effusion present.
[2024-02-12 13:24] LABS: Absolute Basophils 0.1 K/uL (0-0.5); Absolute Lymphocytes (CBC) 0.8 K/uL (0.7-4.9); Absolute Neutrophil 12.8 K/uL (1.8-8.0); Basophils % 0.6 % (0-1.3); Eosinophils % 0.1 % (0-4.4); Hematocrit 37.8 % (39.6-49.0); Hemoglobin 12.1 g/dL (13.6-17.9); Lymphocytes % 5.3 % (15.3-44.8); MCH 29.7 pg (27.0-35.0); MCHC 32.1 g/dL (32.0-36.0); MCV 92.5 fL (80-100); MPV 9.4 fL (7.6-11.3); Platelets 227 thou/uL (152-406); RBC Red Blood Cell Count 4.08 M/uL (4.33-5.43); Red Cell Distribution Width 15.9 % (12.1-15.2)
[2024-02-12 13:29] LABS: PT Prothrombin Time 16.3 SECONDS (9.4-12.5); Protime INR 1.47
[2024-02-12 13:52] LABS: ALT/SGPT 17 U/L (16-61); Albumin 2.8 g/dL (3.4-5.0); Albumin/Globulin Ratio 0.7 (1.1-1.8); Alkaline Phosphatase 77 U/L (45-117); Anion Gap 6.4 mEq/L (5.0-15.0); BUN Blood Urea Nitrogen 9 mg/dL (7-18); Bicarbonate 32 mEq/L (21-32); Bilirubin Total 0.5 mg/dL (0.2-1.0); Globulin 4.1 g/dL (2.3-3.5); Glomerular Filtration Rate 127 ml/min (=/>90); Glucose Level 133 mg/dL (74-106); Magnesium 2.1 mg/dL (1.6-2.4); NT PRO-BNP 2231 pg/mL (<125); Potassium 3.4 mEq/L (3.5-5.1); Protein, Total 6.9 g/dL (6.4-8.2); Sodium Level 142 mEq/L (136-145); Troponin High Sensitivity 13.4 pg/mL (<58.9)
[2024-02-12 13:59] LABS: SARS-CoV-2 Antigen CONTROL BLUE LINE VIS/BG OK; SARS-CoV-2 Antigen Rapid Res Negative (Negative)
[2024-02-12 14:15] LABS: AST/SGOT < 10 U/L (15-37); Bilirubin Direct < 0.2 mg/dL (0-0.2); Bilirubin Indirect, Calculated 0.3 mg/dL (0.2-0.8)
[2024-02-12 14:18] LABS: Anisocytosis 1+; Blood Morphology Comment NOTED (NOT SEEN); Hypochromasia 2+; Ovalocytes 1+; Platelet Estimate ADEQ; White Blood Cell Scan OK (OK)
[2024-02-12 14:31] LABS: Specific Gravity 1.021 (1.005-1.030); Sqamous Epithelial <5 /HPF (None Seen); Urine Bacteria None Seen /HPF (<20); Urine Bilirubin NEGATIVE (Negative); Urine Blood Negative (Negative); Urine Clarity Extremely Turbid (Clear); Urine Color Yellow (Yellow); Urine Culture Reflex Order NOT NEEDED; Urine Glucose NEGATIVE (Negative); Urine Ketones NEGATIVE (Negative); Urine Microscopic Reflex YN ORDER UMIC; Urine Mucus Slight /HPF (None Seen); Urine Nitrite NEGATIVE (Negative); Urine Protein 2+ (Negative); Urine RBC <5 /HPF (None Seen); Urine Urobilinogen Normal (Normal); Urine WBC <5 /HPF (<5); Urine pH 7.5 (5.0-7.0)
--- NOTE | 2024-02-12 14:36 | EDPHYS ---
Physician Documentation [facility] Name: Jeff Dawkins Age: 23 yrs Sex: Male : 2000 Arrival Date: 02/12/2024 Time: 12:24 Bed 16 Private MD: ED Physician Hilario Schroeder HPI: 02/11 14:21 This 23 yrs old Male presents to ER via Wheelchair with complaints of high ramona heart rate. 14:21 The patient has shortness of breath at rest. Onset: The symptoms/episode began/occurred ramona 2 day(s) ago. Duration: The symptoms are continuous, and are steadily getting worse. The patient's shortness of breath has no apparent modifying factors. The patient presents with a history of heart racing. Context: The symptoms occur at rest. Duration: The patient or guardian reports a single episode, that is still ongoing. Modifying factors: The symptoms are aggravated by nothing. The symptoms are alleviated by nothing. Associated signs and symptoms: Pertinent positives: non-productive cough, fever. Severity of symptoms: At their worst the symptoms were mild moderate in the emergency department the symptoms are unchanged. The patient has experienced similar episodes in the past, several times. Historical: - Allergies: 12:48 Ativan; iw 12:48 Carbamazepine; iw 12:48 Lorazepam; iw 12:48 Tegretol; iw - PMHx: 12:48 Bonchial Pulmonary dysplasia; Cerebral Palsy; Heart Valve problem; scoliosis; Seizures; iw Non-verbal; - PSHx: 12:48 eye surgery; G-tube; hernia repair; knee surgery; Tonsillectomy; Dental surgeries; iw - Social history:: Smoking status: Patient denies any tobacco usage or history of. - Family history:: not pertinent. ROS: 14:21 Eyes: Negative for injury, pain, redness, and discharge, ENT: Negative for injury, ramona pain, and discharge, Neck: Negative for injury, pain, and swelling, Abdomen/GI: Negative for abdominal pain, nausea, vomiting, diarrhea, and constipation, Back: Negative for injury and pain, : Negative for injury, bleeding, discharge, and swelling, MS/Extremity: Negative for injury and deformity, Skin: Negative for injury, rash, and discoloration, Neuro: Negative for headache, weakness, numbness, tingling, and seizure, Psych: Negative for depression, anxiety, suicide ideation, homicidal ideation, and hallucinations, Allergy/Immunology: Negative for hives, rash, and allergies, Endocrine: Negative for neck swelling, polydipsia, polyuria, polyphagia, and marked weight changes, Hematologic/Lymphatic: Negative for swollen nodes, abnormal bleeding, and unusual bruising, 14:21 Constitutional: Positive for chills, fever, malaise, poor PO intake, 14:21 Respiratory: Positive for cough, shortness of breath, at rest. Exam: 14:21 Head/Face: Normocephalic, atraumatic. Eyes: Pupils equal round and reactive to light, ramona extra-ocular motions intact. Lids and lashes normal. Conjunctiva and sclera are non-icteric and not injected. Cornea within normal limits. Periorbital areas with no swelling, redness, or edema. ENT: Nares patent. No nasal discharge, no septal abnormalities noted. Tympanic membranes are normal and external auditory canals are clear. Oropharynx with no redness, swelling, or masses, exudates, or evidence of obstruction, uvula midline. Mucous membranes moist. Neck: Trachea midline, no thyromegaly or masses palpated, and no cervical lymphadenopathy. Supple, full range of motion without nuchal rigidity, or vertebral point tenderness. No Meningismus. Chest/axilla: Normal chest wall appearance and motion. Nontender with no deformity. No lesions are appreciated. Abdomen/GI: Soft, non-tender, with normal bowel sounds. No distension or tympany. No guarding or rebound. No evidence of tenderness throughout. Back: No spinal tenderness. No costovertebral tenderness. Full range of motion. Male : Normal genitalia with no discharge or lesions. Skin: Warm, dry with normal turgor. Normal color with no rashes, no lesions, and no evidence of cellulitis. MS/ Extremity: Pulses equal, no cyanosis. Neurovascular intact. Full, normal range of motion. Neuro: Awake and alert, GCS 15, oriented to person, place, time, and situation. Cranial nerves II-XII grossly intact. Motor strength 5/5 in all extremities. Sensory grossly intact. Cerebellar exam normal. Normal gait. Psych: Awake, alert, with orientation to person, place and time. Behavior, mood, and affect are within normal limits. 14:21 Constitutional: The patient appears febrile, 14:21 Cardiovascular: Rate: tachycardic, actual rate is 127 bpm, Rhythm: regular, Pulses: Pulses are 4+ in bilateral radial, brachial, femoral, popliteal, posterior tibial and and dorsalis pedis arteries.. Heart sounds: normal, Edema: is not appreciated, JVD: is not appreciated, 14:21 ECG was reviewed by the Attending Physician. Vital Signs: 12:42 BP 122 / 75; Pulse 135; Resp 26 S; Temp 100.2(A); Pulse Ox 85% on R/A; iw 12:46 Pulse Ox 91% on 7 lpm Simple Mask; kc6 12:56 BP 93 / 66; Pulse 128; Resp 30 S; Pulse Ox 92% on 9 lpm Simple Mask; kc6 13:16 BP 114 / 74; Pulse 127; Resp 18 S; Pulse Ox 98% on 15 lpm Non-rebreather mask; kc6 14:35 BP 109 / 69; Pulse 120; Resp 29 S; Temp 99.1(A); Pulse Ox 97% on 10 lpm Non-rebreather kc6 mask; 15:30 BP 102 / 63; Pulse 117; Resp 24 S; Pulse Ox 98% on 10 lpm Non-rebreather mask; kc6 MDM: 12:27 Patient medically screened. ramona 14:25 Differential diagnosis: Anemia asthma, Bronchitis CHF exacerbation, arrythmia, ramona dehydration, stress disorder, Myocardial Infarction pneumonia, pulmonary edema, reactive airway disease, Sepsis. Antibiotic administration: merrem. Immunization status:. Data reviewed: vital signs, nurses notes, lab test result(s), EKG, radiologic studies, plain films. I considered the following discharge prescriptions or medication management in the emergency department Medications were administered in the Emergency Department. See MAR. Independent interpretation of the following test(s) in the Emergency Department EKG: See my EKG interpretation above. Test considered but Not performed: Ultrasound 2 d echo. Historians other than the Patient: Parent: mom and dad well informed. Care significantly affected by the following chronic conditions: bronchopulmonary , cerebral palsy, valve prob, scoliosis, seizure, none verbal. 02/11 12:32 Order name: Basic Metabolic Panel; Complete Time: 14:19 ramona 02/11 12:32 Order name: CBC with Diff; Complete Time: 14:19 ramona 02/11 12:32 Order name: LFT's; Complete Time: 14:19 ramona 02/11 12:32 Order name: Magnesium; Complete Time: 14:19 [facility] 02/11 12:32 Order name: NT PRO-BNP; Complete Time: 14:19 [facility] 02/11 12:32 Order name: PT-INR; Complete Time: 14:14 [facility] 02/11 12:32 Order name: Troponin HS; Complete Time: 14:19 [facility] 02/11 12:32 Order name: TSH; Complete Time: 14:19 [facility] 02/11 12:32 Order name: Urinalysis w/ reflexes; Complete Time: 14:35 [facility] 02/11 12:32 Order name: Flu; Complete Time: 14:14 [facility] 02/11 12:32 Order name: SARS RAPID; Complete Time: 14:14 [facility] 02/11 12:43 Order name: Blood Culture Adult (2) [facility] 02/11 12:43 Order name: Lactate w/ 2H reflex if indic.; Complete Time: 14:14 [facility] 02/11 13:27 Order name: CBC Smear Scan; Complete Time: 14:19 EDMS 02/11 12:32 Order name: XRAY Chest (1 view); Complete Time: 14:14 [facility] 02/11 14:38 Order name: BIPAP [facility] 02/11 12:32 Order name: EKG; Complete Time: 12:33 [facility] 02/11 12:32 Order name: Cardiac monitoring; Complete Time: 12:46 [facility] 02/11 12:32 Order name: EKG - Nurse/Tech; Complete Time: 12:46 [facility] 02/11 12:32 Order name: IV Saline Lock; Complete Time: 13:16 [facility] 02/11 12:32 Order name: Labs collected and sent; Complete Time: 13:16 [facility] 02/11 12:32 Order name: O2 Per Protocol; Complete Time: 12:46 [facility] 02/11 12:32 Order name: O2 Sat Monitoring; Complete Time: 12:46 [facility] EC:21 Rate is 136 beats/min. Rhythm is regular. QRS [place] is Normal. VA interval is normal. [facility] QRS interval is normal. QT interval is normal. No Q waves. T waves are Normal. No ST changes noted. Clinical impression: Abnormal EKG without significant change and Sinus tachycardia. Interpreted by me. Reviewed by me. Administered Medications: 14:15 Discontinued: ns 0.9% 1000 ml IV at 1 bolus Per protocol; 1000 mL bolus ramona 13:16 Drug: NS 0.9% IV 1000 ml IV at 1 bolus Per protocol; 1000 mL bolus Route: IV; Rate: 75 kc6 ml/hr; Site: left forearm; 14:34 Follow up: Response: No adverse reaction; IV Status: Order to discontinue infusion kc6 13:16 Drug: Magnesium Sulfate IVPB 1 grams IVPB once over 1 hrs Route: IVPB; Infused Over: 1 kc6 hrs; Site: left forearm; 14:34 Follow up: Response: No adverse reaction; IV Status: Completed infusion; IV Intake: kc6 100ml 14:35 Drug: Meropenem IV 1 grams IV at per protocol once; (mix in NS 100 mL) Route: IV; Rate: kc6 per protocol; Site: left forearm; 15:29 Follow up: Response: No adverse reaction; IV Status: Completed infusion; IV Intake: kc6 100ml 14:35 Drug: Acetaminophen PO 1000 mg PO once Route: PO; kc6 15:29 Follow up: Response: No adverse reaction kc6 Disposition Summary: 02/12/24 14:35 Transfer Ordered Notes: Transfer Location: [facility] Reason: Higher level of care ramona Condition: Fair ramona Problem: new ramona Symptoms: have improved ramona Accepting Physician: to [facility](02/12/24 15:31) kc6 Diagnosis - Combined systolic (congestive) and diastolic (congestive) heart failure ramona - Dyspnea ramona - Fever, unspecified ramona - Tachycardia, unspecified ramona - Acute and chronic respiratory failure with hypoxia - BRONCHOPULMONARY DYSPLASIA ramona - Elevated white blood cell count ramona - Pericardial effusion (noninflammatory) ramona Forms: - Medication Reconciliation Form ramona - SBAR form ramona Signatures: Dispatcher [employer] EDHilario Ross MD MD cha Williams, Irene, RN Leah Alberto RN RN kc6 Corrections: (The following items were deleted from the chart) 12:33 12:33 BASIC METABOLIC PANEL+C.LAB.BRZ ordered. EDMS EDMS 12:33 12:33 CBC+H.LAB.BRZ ordered. EDMS EDMS 12:33 12:33 HEPATIC FUNCTION+C.LAB.BRZ ordered. EDMS EDMS 12:33 12:33 MAGNESIUM+C.LAB.BRZ ordered. EDMS EDMS 12:33 12:33 PROBNP+C.LAB.BRZ ordered. EDMS EDMS 12:33 12:33 PROTIME (+INR)+COAG.LAB.BRZ ordered. EDMS EDMS 12:33 12:33 Troponin High Sensitivity+C.LAB.BRZ ordered. EDMS EDMS 12:33 12:33 THYROID STIMULAT HORMONE+C.LAB.BRZ ordered. EDMS EDMS 12:33 12:33 Urinalysis+U.LAB.BRZ ordered. EDMS EDMS 12:33 12:33 Influenza Screen (A \T\ B)+BA.LAB.BRZ ordered. EDMS EDMS 12:33 12:33 SARS-COV-2 Antigen Rapid+I.LAB.BRZ ordered. EDMS EDMS 14:37 14:35 to [facility] ramona ramona 14:37 14:37 to [facility] ramona ramona 15:31 14:37 to [facility] kc6
--- NOTE | 2024-02-12 14:36 | ER ---
Nurse's Notes [facility] Name: Jeff Dawkins Age: 23 yrs Sex: Male : 2000 Arrival Date: 02/12/2024 Time: 12:24 Bed 16 Private MD: Diagnosis: Combined systolic (congestive) and diastolic (congestive) heart failure;Dyspnea;Fever, unspecified;Tachycardia, unspecified;Acute and chronic respiratory failure with hypoxia-BRONCHOPULMONARY DYSPLASIA;Elevated white blood cell count;Pericardial effusion (noninflammatory) Presentation: 02/11 12:47 Chief complaint: Parent and/or Guardian states: heart has been running 120-140 since iw yesterday , had a low grade temp and sinus drainage and cough , also has hx of afib. Coronavirus screen: Client presents with at least one sign or symptom that may indicate coronavirus-19. Ebola Screen: No symptoms or risks identified at this time. Initial Sepsis Screen: Does the patient meet any 2 criteria? RR > 20 per min. HR > 90 bpm. Does the patient have a suspected source of infection? No. Patient's initial sepsis screen is negative. Risk Assessment: Do you want to hurt yourself or someone else? Unable to obtain. Onset of symptoms was February 11, 2024. 12:47 Method Of Arrival: Wheelchair iw 12:47 Acuity: JALEEL 2 iw Historical: - Allergies: 12:48 Ativan; iw 12:48 Carbamazepine; iw 12:48 Lorazepam; iw 12:48 Tegretol; iw - PMHx: 12:48 Bonchial Pulmonary dysplasia; Cerebral Palsy; Heart Valve problem; scoliosis; Seizures; iw Non-verbal; - PSHx: 12:48 eye surgery; G-tube; hernia repair; knee surgery; Tonsillectomy; Dental surgeries; iw - Social history:: Smoking status: Patient denies any tobacco usage or history of. - Family history:: not pertinent. Screenin:54 [facility] ED Fall Risk Assessment (Adult) History of falling in the last 3 months, kc6 including since admission No falls in past 3 months (0 pts) Confusion or Disorientation No (0 pts) Intoxicated or Sedated No (0 pts) Impaired Gait No (0 pts) Mobility Assist Device Used Yes (1 pt) Altered Elimination No (0 pt) Score/Fall Risk Level 0 - 2 = Low Risk. Abuse screen: Denies threats or abuse. Denies injuries from another. Nutritional screening: No deficits noted. Tuberculosis screening: No symptoms or risk factors identified. Assessment: 12:54 General: Appears in no apparent distress. comfortable, well groomed, well developed, kc6 Behavior is calm, cooperative, appropriate for age, Reports fever for 12-24 hours. Pain: Unable to use pain scale. Does not appear to understand pain scale. FLACC scale score is 0 out of 10. Neuro: Level of Consciousness is awake, alert, Oriented to person, Appropriate for age. Cardiovascular: Heart tones S1 S2 present Capillary refill < 3 seconds Rhythm is sinus tachycardia Parent/caregiver reports patient has had palpitations. Respiratory: Airway is patent Trachea midline Respiratory effort is even, labored, Respiratory pattern is symmetrical, tachypnea Parent/caregiver reports the patient having cough that is. GI: No signs and/or symptoms were reported involving the gastrointestinal system. : No signs and/or symptoms were reported regarding the genitourinary system. EENT: No signs and/or symptoms were reported regarding the EENT system. Derm: No signs and/or symptoms reported regarding the dermatologic system. Skin is intact, is healthy with good turgor, Skin is pink, warm \T\ dry. Musculoskeletal: No signs and/or symptoms reported regarding the musculoskeletal system. Circulation, motion, and sensation intact. Capillary refill < 3 seconds, Range of motion: intact in all extremities. 13:54 Reassessment: Patient appears in no apparent distress at this time. No changes from kc6 previously documented assessment. Patient and/or family updated on plan of care and expected duration. Pain level reassessed. 15:20 Reassessment: attempted to call report to [facility] x2. state they are unaware of this kc6 patient and will me back. Dr. Schroeder notified. Vital Signs: 12:42 BP 122 / 75; Pulse 135; Resp 26 S; Temp 100.2(A); Pulse Ox 85% on R/A; iw 12:46 Pulse Ox 91% on 7 lpm Simple Mask; kc6 12:56 BP 93 / 66; Pulse 128; Resp 30 S; Pulse Ox 92% on 9 lpm Simple Mask; kc6 13:16 BP 114 / 74; Pulse 127; Resp 18 S; Pulse Ox 98% on 15 lpm Non-rebreather mask; kc6 14:35 BP 109 / 69; Pulse 120; Resp 29 S; Temp 99.1(A); Pulse Ox 97% on 10 lpm Non-rebreather kc6 mask; 15:30 BP 102 / 63; Pulse 117; Resp 24 S; Pulse Ox 98% on 10 lpm Non-rebreather mask; kc6 ED Course: 12:25 Patient arrived in ED. ra3 12:27 Azeem Gray MD is Attending Physician. sp3 12:27 Attending Physician role handed off by Azeem Gray MD ramona 12:27 Hilario Schroeder MD is Attending Physician. ramona 12:30 Leah Mitchell RN is Primary Nurse. kc6 12:42 Arm band placed on. kc6 12:46 Patient has correct armband on for positive identification. Bed in low position. Call kc6 light in reach. Side rails up X2. Adult w/ patient. engine monitor on. Pulse ox on. NIBP on. Door closed. Noise minimized. Lights dimmed. Pillow given. 12:48 Triage completed. iw 12:58 XRAY Chest (1 view) In Process Unspecified. EDMS 13:03 Inserted saline lock: 20 gauge in left upper arm, using aseptic technique. Blood nj1 collected. Flushed with 10 mL NS Ultrasound guided. Catheter tip well visualized within vasculature during placement. 14:18 Urinalysis w/ reflexes Sent. kc6 14:18 Straight cath inserted, using sterile technique, 14 Fr. Specimen obtained. Returned kc6 cloudy urine. Patient tolerated well. 14:21 transfer initiated to [facility] by Dr Schroeder. bd 15:08 pt accepted in transfer to [facility] ICU by Dr Olguin admin approval given by Santa Hodges.bd 15:30 No provider procedures requiring assistance completed. Patient transferred, IV remains kc6 in place. Administered Medications: 14:15 Discontinued: ns 0.9% 1000 ml IV at 1 bolus Per protocol; 1000 mL bolus [facility] 13:16 Drug: NS 0.9% IV 1000 ml IV at 1 bolus Per protocol; 1000 mL bolus Route: IV; Rate: 75 kc6 ml/hr; Site: left forearm; 14:34 Follow up: Response: No adverse reaction; IV Status: Order to discontinue infusion kc6 13:16 Drug: Magnesium Sulfate IVPB 1 grams IVPB once over 1 hrs Route: IVPB; Infused Over: 1 kc6 hrs; Site: left forearm; 14:34 Follow up: Response: No adverse reaction; IV Status: Completed infusion; IV Intake: kc6 100ml 14:35 Drug: Meropenem IV 1 grams IV at per protocol once; (mix in NS 100 mL) Route: IV; Rate: kc6 per protocol; Site: left forearm; 15:29 Follow up: Response: No adverse reaction; IV Status: Completed infusion; IV Intake: kc6 100ml 14:35 Drug: Acetaminophen PO 1000 mg PO once Route: PO; kc6 15:29 Follow up: Response: No adverse reaction kc6 Medication: 15:31 VIS not applicable for this client. kc6 Intake: 14:34 IV: 100ml; Total: 100ml. kc6 15:29 IV: 100ml; Total: 200ml. kc6 Outcome: 14:35 ER care complete, transfer ordered by MD. greene 15:30 Transferred by ground EMS to [facility], Transfer form completed. kc 15:30 critical 15:30 Instructed on the need for transfer, 15:31 Patient left the ED. kc6 Signatures: Dispatcher [employer] EDMS Porsha Tracy Corey, MD MD cha Williams, Irene, RN RN iw Azeem Gray MD MD sp3 Leah Mitchell RN RN kc6 Jaco, Norma, RN RN [email or web address] Ewa Cloon ra3 Corrections: (The following items were deleted from the chart) 12:47 12:46 BP 122 / 75; Pulse 135bpm; Resp 26bpm; Spontaneous; Pulse Ox 85% RA; Temp 100.2F iw Axillary; iw
[2024-02-12 15:57] VITALS: TEMP 99.1
[2024-02-12 15:59] VITALS: BP 102/63; O2SAT 98
== END 2024-02-12 15:31 | disposition designated cancer center or children's hospital (05) ==
LOC: ER 12:24
DX: J96.21 Acute and chronic respiratory failure with hypoxia (principal); I50.40 Unspecified combined systolic (congestive) and diastolic (congestive) heart failure; R50.9 Fever, unspecified; R06.00 Dyspnea, unspecified; R00.0 Tachycardia, unspecified; I31.39 Other pericardial effusion (noninflammatory); Q89.8 Other specified congenital malformations; G80.9 Cerebral palsy, unspecified; M41.9 Scoliosis, unspecified; Z11.52 Encounter for screening for COVID-19; Z88.8 Allergy status to other drugs, medicaments and biological substances
CPT/HCPCS: 36415; 51702; 71045; 80048; 80076; 81001; 83605; 83735; 83880; 84443; 84484; 85025; 85610; 87040; 87804; 87811; 93005; 96365; 96367; 99285

== ENCOUNTER 2024-04-27 16:20 | Emergency (ER) | payer OTHER ==
[2024-04-27 17:04] LABS: Absolute Basophils 0.1 K/uL (0-0.5); Absolute Lymphocytes (CBC) 1.3 K/uL (0.7-4.9); Absolute Monocytes 0.4 K/uL (0.1-1.3); Absolute Neutrophil 5.3 K/uL (1.8-8.0); Basophils % 0.9 % (0-1.3); Eosinophils % 0.6 % (0-4.4); Hematocrit 38.8 % (39.6-49.0); Lymphocytes % 18.3 % (15.3-44.8); MCH 30.4 pg (27.0-35.0); MCHC 33.5 g/dL (32.0-36.0); MCV 90.8 fL (80-100); MPV 8.1 fL (7.6-11.3); Monocytes % 5.8 % (3.3-12.3); Neutrophils % 74.4 % (41.7-73.7); Platelets 218 thou/uL (152-406); RBC Red Blood Cell Count 4.28 M/uL (4.33-5.43)
[2024-04-27 17:05] LABS: PT Prothrombin Time 14.9 SECONDS (9.4-12.5); Protime INR 1.34
[2024-04-27 17:21] LABS: ALT/SGPT 15 U/L (16-61); Albumin 3.2 g/dL (3.4-5.0); Albumin/Globulin Ratio 0.9 (1.1-1.8); Alkaline Phosphatase 77 U/L (45-117); Anion Gap 6.1 mEq/L (5.0-15.0); BUN Blood Urea Nitrogen 9 mg/dL (7-18); Bicarbonate 33 mEq/L (21-32); Bilirubin Total 0.3 mg/dL (0.2-1.0); Globulin 3.4 g/dL (2.3-3.5); Glomerular Filtration Rate 134 ml/min (=/>90); Glucose Level 108 mg/dL (74-106); NT PRO-BNP 484 pg/mL (<125); Potassium 4.1 mEq/L (3.5-5.1); Protein, Total 6.6 g/dL (6.4-8.2); Sodium Level 144 mEq/L (136-145); Troponin High Sensitivity 9.6 pg/mL (<58.9)
[2024-04-27 17:26] LABS: AST/SGOT < 10 U/L (15-37); Bilirubin Direct < 0.2 mg/dL (0-0.2); Bilirubin Indirect, Calculated 0.1 mg/dL (0.2-0.8)
--- NOTE | 2024-04-27 18:37 | RAD REPORT ---
EXAMINATION: CT Thorax Wo Con CLINICAL INDICATION: Male, 23 years old. h/o effusion, s/p pericardial window TECHNIQUE: Axial CT scan of the chest without intravenous contrast. Multiplanar reformats were genera tameka and reviewed. One or more of the following dose reduction techniques were used: Automated exposure control, adjustment of the mA and/or kV according patient size, and/or iterative reconstruct ion. Unless otherwise specified, incidental findings do not require dedicated imaging follow-up. COMPARISON: 09/08/2023 FINDINGS: LOWER NECK: Visualized thyroid gland and soft tissues are normal. LUNGS: Dependent atelectatic changes. Progressive atelectasis in the left lung, probably owing to com pletion of pleural effusion, pericardial effusion, and enlargement of the left cardiac chambers. No evidence of airspace or interstitial process. No worrisome nodules. PLEURA: Mild to moderate layering bilateral pleural effusions. No pneumothorax. . MEDIASTINUM AND LYMPH NODES: Pronounced enlargement of the heart, with marked dilation of the left at rium and its appendage, stable. Large pericardial effusion, progressive since the prior exam, maintaining fluid density. No mediastinal mass or fluid collection. Normal size mediastinal, hilar, a nd axillary lymph nodes. OSSEOUS STRUCTURES AND CHEST WALL: Intact. UPPER ABDOMEN: Mild free ascites. Peripheral right lobe rounded 1.5 cm hepatic fluid density lesion, stable, may suggest a cyst. IMPRESSION: Progressive pericardial effusion, now large. Marked enlargement of the heart, and especially the left atrium, stable. New bilateral pleural effusions. Pronounced opacities of the left lung, probably atelectatic.
--- NOTE | 2024-04-27 18:52 | EDPHYS ---
Physician Documentation [facility] Name: Jeff Dawkins Age: 23 yrs Sex: Male : 2000 Arrival Date: 04/27/2024 Time: 16:20 Bed 17 Private MD: ED Physician Azeem Gray HPI: 04/27 16:52 This 23 yrs old Male presents to ER via Wheelchair with complaints of Breathing sp3 Difficulty, Palpitations. 16:52 23-year-old male with history cerebral palsy, bronchopulmonary dysplasia, nonverbal sp3 state, history of pericardial effusion, pericarditis, pleural effusion status post pericardial window formally seen at [facility] now seen at [facility] now presents to the ED with recurrent difficulty breathing and concerns of fluid recollection. Patient is with mom who is decision-maker and very knowledgeable about his medical condition. Review of systems, history and physical limited. Mom states that his difficulty breathing has progressively increased which in the past has been caused by pleural effusions.. Historical: - Allergies: 16:42 Ativan; jb4 16:42 Carbamazepine; jb4 16:42 Lorazepam; jb4 16:42 Tegretol; jb4 - PMHx: 16:42 Cerebral Palsy; Bonchial Pulmonary dysplasia; Heart Valve problem; Non-verbal; jb4 scoliosis; Seizures; - PSHx: 16:42 eye surgery; G-tube; hernia repair; knee surgery; Tonsillectomy; Dental surgeries; jb4 Pericardial window (Dental surgeries); - Immunization history:: Adult Immunizations up to date. - Infectious Disease History:: Denies. - Social history:: Smoking status: Patient denies any tobacco usage or history of. ROS: 16:54 Unable to obtain ROS due to baseline dementia, patient's speech is incomprehensible, sp3 patient's inability to understand questions, Exam: 16:54 Constitutional: This is a well developed, well nourished patient who is awake, alert, sp3 and in no acute distress. Head/Face: Normocephalic, atraumatic. Eyes: Pupils equal round and reactive to light, extra-ocular motions intact. Lids and lashes normal. Conjunctiva and sclera are non-icteric and not injected. Cornea within normal limits. Periorbital areas with no swelling, redness, or edema. Chest/axilla: Normal chest wall appearance and motion. Nontender with no deformity. No lesions are appreciated. Cardiovascular: Regular rate and rhythm with a normal S1 and S2. No gallops, murmurs, or rubs. Normal PMI, no JVD. No pulse deficits. Abdomen/GI: Soft, non-tender, with normal bowel sounds. No distension or tympany. No guarding or rebound. No evidence of tenderness throughout. Back: No spinal tenderness. No costovertebral tenderness. Full range of motion. 16:54 Respiratory: Coarse breath sounds bilaterally, 16:54 Unable to obtain exam due to baseline dementia, patient's incomprehensible speech, patient's inability to understand questions, 17:24 ECG was reviewed by the Attending Physician. EKG demonstrates normal sinus rhythm at 91 sp3 bpm with first-degree AV block with a UT interval of 204, otherwise normal intervals, normal axis, possible electrical alternans with mild variability in QRS complexes, early repolarization and nonspecific ST's ST changes without evidence of acute ischemia. Vital Signs: 16:39 BP 133 / 80; Pulse 88; Resp 18; Temp 97.8(A); Pulse Ox 97% on 6 lpm Simple Mask; Weight jb4 69.85 kg (R); Height 5 ft. 8 in. (R); 16:45 BP 139 / 77; Pulse 95; Resp 18; Pulse Ox 97% on Simple Mask; ar6 18:32 BP 124 / 74; Pulse 85; Resp 17; Pulse Ox 96% on Simple Mask; ar6 16:39 Body Mass Index 23.42 (69.85 kg, 172.72 cm) jb4 MDM: 16:40 Medical Screening Exam initiated sp3 16:55 Data reviewed: vital signs, nurses notes. ED course: 23-year-old male with cerebral sp3 palsy and significant cardiopulmonary pathology now with recurrent shortness of breath. Will obtain CT scan of the chest, EKG and general labs. Differential diagnosis includes recurrent pulmonary effusion, pericardial pathology, ACS, valvular pathology, among others. Disposition pending workup and patient course with possible transfer if needed.. 18:50 ED course: CT demonstrates large pericardial effusion and bilateral pleural effusions. sp3 Patient will be transferred to [facility] for continued care.. 19:36 ED course: Patient accepted to congenital adult service at [facility]. sp3 Patient will be going directly to the floor and bypassing the ER.. 04/27 16:41 Order name: Basic Metabolic Panel; Complete Time: 17:26 sp3 04/27 16:41 Order name: CBC with Diff; Complete Time: 17:24 sp3 04/27 16:41 Order name: LFT's; Complete Time: 17:26 sp3 04/27 16:41 Order name: Magnesium; Complete Time: 17:26 sp3 04/27 16:41 Order name: NT PRO-BNP; Complete Time: 17:26 sp3 04/27 16:41 Order name: PT-INR; Complete Time: 17:24 sp3 04/27 16:41 Order name: Troponin HS; Complete Time: 17:26 sp3 04/27 16:41 Order name: XRAY Chest (1 view); Complete Time: 19:00 sp3 04/27 16:51 Order name: CT Chest Wo Con; Complete Time: 18:46 sp3 04/27 16:41 Order name: EKG; Complete Time: 16:41 3 04/27 16:41 Order name: Cardiac monitoring; Complete Time: 16:41 sp3 04/27 16:41 Order name: EKG - Nurse/Tech; Complete Time: 17:14 sp3 04/27 16:41 Order name: IV Saline Lock; Complete Time: 18:32 sp3 04/27 16:41 Order name: Labs collected and sent; Complete Time: 18:32 sp3 04/27 16:41 Order name: O2 Per Protocol; Complete Time: 16:41 3 04/27 16:41 Order name: O2 Sat Monitoring; Complete Time: 16:41 sp3 Administered Medications: No medications were administered Disposition Summary: 04/27/24 18:51 Transfer Ordered Notes: Reason: Higher level of care sp3 Condition: Stable sp3 Problem: an acute exacerbation sp3 Symptoms: have worsened sp3 Transfer Location: [facility](04/27/24 19:36) sp3 Accepting Physician: Adult congenital service at [facility](04/27/24 21:26) ar6 Diagnosis - Pericardial effusion, pleural effusion, shortness of breath/dyspnea sp3 Forms: - Medication Reconciliation Form sp3 - SBAR form sp3 Signatures: Dispatcher [employer] EDJono Mcmillan RN RN jb4 Azeem Gray MD MD sp3 Smyth, Haley, RN RN ar6 Corrections: (The following items were deleted from the chart) 16:42 16:41 BASIC METABOLIC PANEL+C.LAB.BRZ ordered. EDMS EDMS 16:42 16:41 CBC+H.LAB.BRZ ordered. EDMS EDMS 16:42 16:41 HEPATIC FUNCTION+C.LAB.BRZ ordered. EDMS EDMS 16:42 16:41 MAGNESIUM+C.LAB.BRZ ordered. EDMS EDMS 16:42 16:41 PROBNP+C.LAB.BRZ ordered. EDMS EDMS 16:42 16:41 PROTIME (+INR)+COAG.LAB.BRZ ordered. EDMS EDMS 16:42 16:41 Troponin High Sensitivity+C.LAB.BRZ ordered. EDMS EDMS 19:36 18:51 [facility] sp3 sp3 19:36 18:51 [facility] sp3 sp3 19:37 19:36 [facility] sp3 sp3 21:26 19:37 Adult congenital service at [facility] sp3 ar6
--- NOTE | 2024-04-27 18:52 | ER ---
Nurse's Notes [facility] Name: Jeff Dawkins Age: 23 yrs Sex: Male : 2000 Arrival Date: 04/27/2024 Time: 16:20 Bed 17 Private MD: Diagnosis: Pericardial effusion, pleural effusion, shortness of breath/dyspnea Presentation: 04/27 16:39 Chief complaint: Parent and/or Guardian states: He recently had a pericardial window jb4 procedure done, we were unable to get his medications that they were suppose to have called in. We are worried he may have begun to develop a pneumonia. He normally is only on oxygen at home and now he is not able to keep his O2 up or HR down unless he is on oxygen. Coronavirus screen: At this time, unable to obtain information related to travel outside the [place] Ebola Screen: No symptoms or risks identified at this time. Initial Sepsis Screen: Does the patient meet any 2 criteria? No. Patient's initial sepsis screen is negative. Does the patient have a suspected source of infection? No. Patient's initial sepsis screen is negative. Risk Assessment: Do you want to hurt yourself or someone else? Patient reports no desire to harm self or others. Onset of symptoms was April 27, 2024. Transition of care: patient was not received from another setting of care. 16:39 Method Of Arrival: Wheelchair jb4 16:39 Acuity: JALEEL 2 jb4 Historical: - Allergies: 16:42 Ativan; jb4 16:42 Carbamazepine; jb4 16:42 Lorazepam; jb4 16:42 Tegretol; jb4 - PMHx: 16:42 Cerebral Palsy; Bonchial Pulmonary dysplasia; Heart Valve problem; Non-verbal; jb4 scoliosis; Seizures; - PSHx: 16:42 eye surgery; G-tube; hernia repair; knee surgery; Tonsillectomy; Dental surgeries; jb4 Pericardial window (Dental surgeries); - Immunization history:: Adult Immunizations up to date. - Infectious Disease History:: Denies. - Social history:: Smoking status: Patient denies any tobacco usage or history of. Screenin:45 [facility] ED Fall Risk Assessment (Adult) History of falling in the last 3 months, ar6 including since admission No falls in past 3 months (0 pts) Confusion or Disorientation No (0 pts) Intoxicated or Sedated No (0 pts) Impaired Gait Yes (1 pt) Mobility Assist Device Used Yes (1 pt) Altered Elimination No (0 pt) Score/Fall Risk Level 0 - 2 = Low Risk Oriented to surroundings, Maintained a safe environment, Educated pt \T\ family on fall prevention, incl call for assistance when getting out of bed, Hourly rounding (assess needs \T\ fall precautionary measures) done. Abuse screen: Denies threats or abuse. Denies injuries from another. Nutritional screening: No deficits noted. Tuberculosis screening: No symptoms or risk factors identified. Assessment: 16:45 General: Appears in no apparent distress. comfortable, pt. is non-verbal per mother; ar6 mother reports he appears comfortable. Behavior is calm, cooperative. Pain: Unable to use pain scale. FLACC scale score is 0 out of 10. Neuro: Level of Consciousness is awake, pt. is non verbal. Cardiovascular: Capillary refill < 3 seconds. Cardiovascular: Rhythm is regular. Respiratory: Airway is patent Respiratory effort is even, unlabored, per pt. mother, pt. wears O2 at home intermittently 6-8L on simple mask; pt. mother reports pt has been desating to high 70's on RA; assessed on RA and pt. was at 88% on RA; replaced O2; provider notified Breath sounds with wheezes bilaterally. GI: Abdomen is flat, non-distended. GI: Abdomen is. GI: Abdomen is flat, non-distended. : No signs and/or symptoms were reported regarding the genitourinary system. EENT: Oral mucosa is moist. Derm: Skin is intact, is healthy with good turgor, Skin is dry, Skin is pink, warm \T\ dry. Musculoskeletal: No signs and/or symptoms reported regarding the musculoskeletal system. 20:06 Reassessment: report given to TEJINDER Mojica at [facility]. ar6 Vital Signs: 16:39 BP 133 / 80; Pulse 88; Resp 18; Temp 97.8(A); Pulse Ox 97% on 6 lpm Simple Mask; Weight jb4 69.85 kg (R); Height 5 ft. 8 in. (R); 16:45 BP 139 / 77; Pulse 95; Resp 18; Pulse Ox 97% on Simple Mask; ar6 18:32 BP 124 / 74; Pulse 85; Resp 17; Pulse Ox 96% on Simple Mask; ar6 16:39 Body Mass Index 23.42 (69.85 kg, 172.72 cm) jb4 ED Course: 16:23 Patient arrived in ED. mg5 16:33 Azeem Gray MD is Attending Physician. sp3 16:41 Haley Smyth, RN is Primary Nurse. ar6 16:42 Triage completed. jb4 16:42 Arm band placed on right wrist. jb4 16:45 Patient has correct armband on for positive identification. Bed in low position. Call ar6 light in reach. Side rails up X2. Adult w/ patient. Provided Education on: plan of care. Client placed on continuous cardiac and pulse oximetry monitoring. NIBP monitoring applied. 16:45 No provider procedures requiring assistance completed. Inserted saline lock: 22 gauge ar6 in right wrist, using aseptic technique. Blood collected. Flushed with 10 mL NS. 17:14 Basic Metabolic Panel Sent. ar6 17:14 LFT's Sent. ar6 17:14 Magnesium Sent. ar6 17:14 NT PRO-BNP Sent. ar6 17:14 Troponin HS Sent. ar6 17:39 CT Chest Wo Con In Process Unspecified. EDMS 17:58 XRAY Chest (1 view) In Process Unspecified. EDMS Administered Medications: No medications were administered Medication: 16:45 VIS not applicable for this client. ar6 Outcome: 18:51 ER care complete, transfer ordered by . sp3 21:26 Patient left the ED. ar6 Signatures: Dispatcher [employer] EDMS Jono Mcginnis RN RN jb4 Azeem Gray MD MD sp3 Shruti Wang mg5 Haley Smyth, RN RN ar6
--- NOTE | 2024-04-27 18:59 | RAD REPORT ---
EXAMINATION: ONE VIEW CHEST XR CLINICAL INDICATION: Male, 23 years old.,PALPITATIONS TECHNIQUE: Frontal chest projection is submitted. Examination is limited by patient positioning and t echnique. COMPARISON: 02/12/2024 FINDINGS: Cardiac enlargement obscures evaluation. Progressive opacification of the left lung. No pneumothorax or sizable effusion. The cardiac silhouette is severely enlarged in size, with flask shape configuration. Mediastinal contours are unremarkable. IMPRESSION: Progressive opacification of the left lung, which is better evaluated on CT of the same day. Severe cardiomegaly with pericardial effusion.
[2024-04-27 21:33] VITALS: TEMP 97.8
[2024-04-27 21:35] VITALS: BP 124/74; O2SAT 96
--- NOTE | 2024-04-28 14:48 | EKG ---
Test Date: 2024-04-27 Test Time: 17:09:29 Mud Trucker: MANOHAR MEASUREMENT RESULTS: Intervals: Rate: 91 OH: 204 QRSD: 110 QT: 374 QTc: 460 Brandon: P: 44 OH: 204 QRS: 70 T: 39 INTERPRETIVE STATEMENTS: Normal sinus rhythm Early repolarization Normal ECG Compared to ECG 02/12/2024 12:38:51 Early repolarization now present Sinus tachycardia no longer present Atrial abnormality no longer present Myocardial infarct finding no longer present Electronically Signed On 04-28-24 14:45:59 CDT by Maldonado Jessica
== END 2024-04-27 21:26 | disposition designated cancer center or children's hospital (05) ==
LOC: ER 16:20
DX: I31.39 Other pericardial effusion (noninflammatory) (principal); J90 Pleural effusion, not elsewhere classified; G80.9 Cerebral palsy, unspecified
CPT/HCPCS: 36415; 71045; 71250; 80048; 80076; 83735; 83880; 84484; 85025; 85610; 93005